=== PATIENT | male | born 1960 | race Caucasian/White ===

== ENCOUNTER 2016-12-12 21:18 | Emergency (ER) | payer OTHER ==
[2016-12-12 21:45] VITALS: BP 175/98; PULSE 85; RESP 16; TEMP 97.9; O2SAT 97
[2016-12-12 22:28] LABS: AUTOMATED NEUTROPHIL # 2.2 TH/MM3 (1.8-7.7); BASOPHIL # 0.1 TH/MM3 (0-0.2); BASOPHIL % 1.3 % (0.0-2.0); EOSINOPHIL # 0.2 TH/MM3 (0-0.4); EOSINOPHIL % 3.3 % (0.0-4.0); HEMATOCRIT 40.5 % (39.0-51.0); HEMO FLAGS DIFF FINAL; LYMPH % 41.3 % (9.0-44.0); LYMPHOCYTE # 2.2 TH/MM3 (1.0-4.8); MEAN CELL VOLUME 83.6 FL (80.0-100.0); MEAN CORPUSCULAR HEMOGLOBIN 27.8 PG (27.0-34.0); MEAN CORPUSCULAR HGB CONC 33.3 % (32.0-36.0); MONO % 12.6 % (0.0-8.0); NEUT % 41.5 % (16.0-70.0); PLATELET COUNT 213 TH/MM3 (150-450); RED BLOOD COUNT 4.84 MIL/MM3 (4.50-5.90); RED CELL DISTRIBUTION WIDTH 20.8 % (11.6-17.2); WHITE BLOOD COUNT 5.4 TH/MM3 (4.0-11.0)
--- NOTE | 2016-12-12 22:37 | PD ---
HPI Chief Complaint: Psychiatric Symptoms Time Seen by Provider: 22:22 Travel History International Travel<30 days: No Contact w/Intl Traveler<30days: No Traveled to known affect area: No History of Present Illness HPI 56-year-old male here under Rojas act condition by [place] police department. According to the paperwork the patient was found intoxicated in the parking lot of a liquor store. He was complaining of suicidal thoughts. On initial examination the patient is highly intoxicated limiting examination. He admits to drinking beer tonight. He does endorse a desire to not want to live anymore. Denies any attempts at harming himself. Denies any illicit drug use. He does not recall any trauma. He has no other complaints at this time. [facility] Past Medical History Autoimmune Disease: No Cancer: No Cardiovascular Problems: Yes Diabetes: No Diminished Hearing: No Gastrointestinal Disorders: No Genitourinary: No Hypertension: Yes Immune Disorder: No Musculoskeletal: No Neurologic: Yes Psychiatric: No Reproductive: No Respiratory: No Immunizations Current: Yes Seizures: Yes Past Surgical History Other Surgery: Yes (HIATAL HERNIA 1978) Social History Alcohol Use: Yes (DAILY) Tobacco Use: Yes Substance Use: No Allergies-Medications (Allergen,Severity, Reaction): Coded Allergies: No Known Allergies (Verified , 12/12/16) Reported Meds & Prescriptions Reported Meds & Active Scripts Active No Active Prescriptions or Reported Medications Review of Systems ROS Limitations: Intoxication Except as stated in HPI: all other systems reviewed are Neg Physical Exam Exam Limitations: Intoxication Narrative GENERAL: Disheveled appearing male in no acute distress. SKIN: Warm and dry. HEAD: Atraumatic. Normocephalic. EYES: Pupils equal and round. No scleral icterus. No injection or drainage. ENT: No nasal bleeding or discharge. Mucous membranes pink and moist. NECK: Trachea midline. No JVD. CARDIOVASCULAR: Regular rate and rhythm. No murmur appreciated. RESPIRATORY: No accessory muscle use. Clear to auscultation. Breath sounds equal bilaterally. GASTROINTESTINAL: Abdomen soft, non-tender, nondistended. Hepatic and splenic margins not palpable. MUSCULOSKELETAL: No obvious deformities. No clubbing. No cyanosis. No edema. NEUROLOGICAL: Awake and alert. No obvious cranial nerve deficits. Motor grossly within normal limits. Slurred speech. Intoxicated. PSYCHIATRIC: Depressed, intoxicated. Insight and judgment are currently limited. Data Data Last Documented VS Vital Signs Date Time Temp Pulse Resp B/P Pulse Ox O2 Delivery O2 Flow Rate FiO2 12/13/16 08:24 81 18 120/77 97 Room Air 12/12/16 21:45 97.9 Orders Complete Blood Count With Diff (12/12/16 21:58) Comprehensive Metabolic Panel (12/12/16 21:58) Psych Screen (12/12/16 21:58) Ct Brain W/O Iv Contrast(Rout) (12/12/16 ) Drug Screen, Random Urine (12/12/16 22:34) Alcohol (Ethanol) (12/12/16 22:34) Labs Laboratory Tests Test 12/12/16 21:35 White Blood Count 5.4 TH/MM3 Red Blood Count 4.84 MIL/MM3 Hemoglobin 13.5 GM/DL Hematocrit 40.5 % Mean Corpuscular Volume 83.6 FL Mean Corpuscular Hemoglobin 27.8 PG Mean Corpuscular Hemoglobin 33.3 % Concent Red Cell Distribution Width 20.8 % Platelet Count 213 TH/MM3 Mean Platelet Volume 7.1 FL Neutrophils (%) (Auto) 41.5 % Lymphocytes (%) (Auto) 41.3 % Monocytes (%) (Auto) 12.6 % Eosinophils (%) (Auto) 3.3 % Basophils (%) (Auto) 1.3 % Neutrophils # (Auto) 2.2 TH/MM3 Lymphocytes # (Auto) 2.2 TH/MM3 Monocytes # (Auto) 0.7 TH/MM3 Eosinophils # (Auto) 0.2 TH/MM3 Basophils # (Auto) 0.1 TH/MM3 CBC Comment DIFF FINAL Differential Comment Sodium Level 143 MEQ/L Potassium Level 4.0 MEQ/L Chloride Level 108 MEQ/L Carbon Dioxide Level 28.2 MEQ/L Anion Gap 7 MEQ/L Blood Urea Nitrogen 10 MG/DL Creatinine 0.89 MG/DL Estimat Glomerular Filtration 89 ML/MIN Rate Random Glucose 97 MG/DL Calcium Level 8.3 MG/DL Total Bilirubin 0.2 MG/DL Aspartate Amino Transf 139 U/L (AST/SGOT) Alanine Aminotransferase 86 U/L (ALT/SGPT) Alkaline Phosphatase 144 U/L Total Protein 8.2 GM/DL Albumin 4.0 GM/DL Ethyl Alcohol Level 489 MG/DL MDM Medical Decision Making Medical Screen Exam Complete: Yes Emergency Medical Condition: Yes Medical Record Reviewed: Yes Interpretation(s) etoh 489 cmp ast 139 alt [address] brain wnl Differential Diagnosis Intoxication, polysubstance abuse, acute psychosis, major depressive disorder, closed head injury Narrative Course 56-year-old male under Rojas act for intoxication and suicidal ideation. Basic lab work, CT of the brain is ordered. Mental health screening discussed with the patient. Psychiatric screen ordered. The patient will be medically cleared for psychiatric disposition once the labs and imaging studies are completed. Diagnosis Primary Impression: Alcohol intoxication Qualified Code: F10.120 - Alcohol intoxication, uncomplicated Scripts No Active Prescriptions or Reported Meds Colby Casey Dec 12, 2016 22:37
[2016-12-12 22:52] LABS: ALKALINE PHOSPHATASE 144 U/L (45-117); TOTAL BILIRUBIN ADULT 0.2 MG/DL (0.2-1.0)
[2016-12-12 23:17] LABS: ALT (GPT) 86 U/L (12-78); ANION GAP 7 MEQ/L (5-15); AST (GOT) 139 U/L (15-37); BICARBONATE 28.2 MEQ/L (21.0-32.0); BLOOD UREA NITROGEN 10 MG/DL (7-18); CHLORIDE 108 MEQ/L (98-107); GLOMERULAR FILTRATION RATE 89 ML/MIN (>89); SODIUM (NA) 143 MEQ/L (136-145)
--- NOTE | 2016-12-13 01:52 | RADRPT ---
EXAM DATE/TIME: 12/13/2016 01:31 [facility] COMPARISON: CT BRAIN W/O CONTRAST, July 28, 2016, 15:56. INDICATIONS : Altered mental status. RADIATION DOSE: 41.62 CTDIvol (mGy) MEDICAL HISTORY : None SURGICAL HISTORY : None. ENCOUNTER: Initial ACUITY: 1 day PAIN SCALE: 2/10 LOCATION: cranial TECHNIQUE: Multiple contiguous axial images were obtained of the head. Using automated exposure control and adj ustment of the mA and/or kV according to patient size, radiation dose was kept as low as reasonably a chievable to obtain optimal diagnostic quality images. FINDINGS: CEREBRUM: The ventricles are normal for age. No evidence of midline shift, mass lesion, hemorrhage or acute in farction. No extra-axial fluid collections are seen. POSTERIOR FOSSA: The cerebellum and brainstem are intact. The 4th ventricle is midline. The cerebellopontine angle i s unremarkable. EXTRACRANIAL: The visualized portion of the orbits is intact. SKULL: The calvaria is intact. No evidence of skull fracture. CONCLUSION: 1. No evidence of acute intracranial pathology. No masses are identified. Mitchel Haji MD on December 13, 2016 at 1:50 Board Certified Radiologist. This report was verified electronically.
[2016-12-13 03:00] VITALS: BP 144/72; PULSE 82; RESP 18; O2SAT 95
[2016-12-13 08:24] VITALS: BP 120/77; PULSE 81; RESP 18; O2SAT 97
== END 2016-12-13 09:34 | disposition home or self-care (01) ==
LOC: NEPA 21:18
DX: F10.120 Alcohol abuse with intoxication, uncomplicated (principal); I10 Essential (primary) hypertension; Z72.0 Tobacco use
CPT/HCPCS: 70450; 80053; 80320; 85025

== ENCOUNTER 2016-12-13 16:51 | Emergency (ER) | payer OTHER ==
[~2016-12-13] VITALS: Ht 172.7 cm; Wt 70.0 kg
[2016-12-13] MEDS ORDERED: THIAMINE INJ 100 MG in SODIUM CHLORIDE 0.9% INJ 100 ML IV ONE (17:45)
[2016-12-13] MEDS ORDERED: SODIUM CHLOR 0.9% 1000 ML INJ 1,000 ML IV ONE (17:45)
[2016-12-13] MEDS ORDERED: chlordiazePOXIDE 25 MG CAP PO ONE (17:45)
--- NOTE | 2016-12-13 17:47 | PD ---
HPI Chief Complaint: Alcohol/Drug Intoxication Time Seen by Provider: 17:47 Travel History International Travel<30 days: No Contact w/Intl Traveler<30days: No Traveled to known affect area: No History of Present Illness HPI 56-year-old male brought in under the Joshi's act for EtOH intoxication. Patient was found outside a local restaurant with decreased level of consciousness. Patient is currently arousable, and complaining of no pain. He states he drank a 24 pack today. EMS reports that he was found with a vodka bottle near him at their response. Patient does state that he has had seizures with EtOH withdrawal in the past. Patient has no known drug allergies. PFSH Past Medical History Autoimmune Disease: No Cancer: No Cardiovascular Problems: Yes Diabetes: No Diminished Hearing: No Gastrointestinal Disorders: No Genitourinary: No Hypertension: Yes Immune Disorder: No Musculoskeletal: No Neurologic: Yes Psychiatric: No Reproductive: No Respiratory: No Immunizations Current: Yes Seizures: Yes Past Surgical History Other Surgery: Yes (HIATAL HERNIA 1978) Social History Alcohol Use: Yes (DAILY) Tobacco Use: Yes Substance Use: No Allergies-Medications (Allergen,Severity, Reaction): Coded Allergies: No Known Allergies (Verified , 12/12/16) Reported Meds & Prescriptions Reported Meds & Active Scripts Active No Active Prescriptions or Reported Medications Review of Systems ROS Limitations: Intoxication Except as stated in HPI: all other systems reviewed are Neg General / Constitutional: No: Fever Eyes: No: Visual changes HENT: No: Headaches Cardiovascular: No: Chest Pain or Discomfort Respiratory: No: Shortness of Breath Gastrointestinal: No: Abdominal Pain Genitourinary: No: Dysuria Musculoskeletal: No: Pain Skin: No Rash Neurologic: No: Weakness Psychiatric: No: Depression Endocrine: No: Polydipsia Hematologic/Lymphatic: No: Easy Bruising Physical Exam Exam Limitations: Intoxication Narrative GENERAL: Patient is arousable and appropriate when asked questions. SKIN: Warm and dry. Normal color. Normal turgor. No sign of trauma. HEAD: Atraumatic. Normocephalic. EYES: Pupils equal and round. No scleral icterus. No injection or drainage. ENT: No nasal bleeding or discharge. Mucous membranes pink and moist. Pharynx is clear. NECK: Trachea midline. Supple and nontender. CARDIOVASCULAR: Regular rate and rhythm. RESPIRATORY: No accessory muscle use. Clear to auscultation. Breath sounds equal bilaterally. MUSCULOSKELETAL: Extremities without clubbing, cyanosis, or edema. No obvious deformities. NEUROLOGICAL: Awake and alert. No obvious cranial nerve deficits. Motor grossly within normal limits. Five out of 5 muscle strength in the arms and legs. Mildly slurred speech. PSYCHIATRIC: Appropriate mood and affect; insight and judgment normal. Data Data Orders Complete Blood Count With Diff (12/13/16 17:45) Comprehensive Metabolic Panel (12/13/16 17:45) Iv Access Insert/Monitor (12/13/16 17:45) Drug Screen, Random Urine (12/13/16 17:45) Alcohol (Ethanol) (12/13/16 17:45) Sodium Chlor 0.9% 1000 Ml Inj (Ns 1000 M (12/13/16 17:45) Thiamine Inj (Thiamine Inj) (12/13/16 17:45) Chlordiazepoxide (Librium) (12/13/16 17:45) MDM Medical Decision Making Medical Screen Exam Complete: Yes Emergency Medical Condition: Yes Differential Diagnosis Tatum's act. EtOH intoxication. Mood disorder. Narrative Course Patient is medically stable at time of exam. Labs ordered including CBC, CMP, and EtOH level. Urine drug screen is ordered as well. IV normal saline boluses ordered of 1000 and rales. Patient is given 100 mg thiamine IV as well as 25 mg Librium by mouth. Patient is awaiting med bed placement. Scripts No Active Prescriptions or Reported Meds Padilla Castellanos Dec 13, 2016 17:47
[2016-12-13 18:28] LABS: AUTOMATED NEUTROPHIL # 3.1 TH/MM3 (1.8-7.7); BASOPHIL # 0.1 TH/MM3 (0-0.2); BASOPHIL % 1.1 % (0.0-2.0); EOSINOPHIL # 0.1 TH/MM3 (0-0.4); EOSINOPHIL % 2.4 % (0.0-4.0); HEMATOCRIT 34.6 % (39.0-51.0); HEMO FLAGS DIFF FINAL; LYMPH % 28.1 % (9.0-44.0); LYMPHOCYTE # 1.5 TH/MM3 (1.0-4.8); MEAN CELL VOLUME 83.5 FL (80.0-100.0); MEAN CORPUSCULAR HEMOGLOBIN 27.8 PG (27.0-34.0); MEAN CORPUSCULAR HGB CONC 33.3 % (32.0-36.0); NEUT % 58.4 % (16.0-70.0); PLATELET COUNT 192 TH/MM3 (150-450); RED BLOOD COUNT 4.14 MIL/MM3 (4.50-5.90); RED CELL DISTRIBUTION WIDTH 21.4 % (11.6-17.2); WHITE BLOOD COUNT 5.3 TH/MM3 (4.0-11.0)
[2016-12-13 18:36] LABS: AMPHETAMINE, URINE NEG (NEG); BARBITURATES, URINE NEG (NEG); COCAINE, URINE NEG (NEG)
[2016-12-13 18:44] LABS: ANION GAP 11 MEQ/L (5-15)
[2016-12-13 18:49] LABS: ALKALINE PHOSPHATASE 118 U/L (45-117); ALT (GPT) 77 U/L (12-78); AST (GOT) 122 U/L (15-37); BICARBONATE 26.2 MEQ/L (21.0-32.0); BLOOD UREA NITROGEN 11 MG/DL (7-18); CHLORIDE 105 MEQ/L (98-107); GLOMERULAR FILTRATION RATE 91 ML/MIN (>89); POTASSIUM 3.7 MEQ/L (3.5-5.1); SODIUM (NA) 142 MEQ/L (136-145); TOTAL BILIRUBIN ADULT 0.2 MG/DL (0.2-1.0)
--- NOTE | 2016-12-13 21:17 | PD ---
Physical Exam Date Seen by Provider: Dec 13, 2016 Time Seen by Provider: 19:55 Narrative Patient is here with acute alcohol intoxication. Data Data Orders Complete Blood Count With Diff (12/13/16 17:45) Comprehensive Metabolic Panel (12/13/16 17:45) Iv Access Insert/Monitor (12/13/16 17:45) Drug Screen, Random Urine (12/13/16 17:45) Alcohol (Ethanol) (12/13/16 17:45) Sodium Chlor 0.9% 1000 Ml Inj (Ns 1000 M (12/13/16 17:45) Thiamine Inj (Thiamine Inj) (12/13/16 17:45) Chlordiazepoxide (Librium) (12/13/16 17:45) Labs Laboratory Tests Test 12/13/16 12/13/16 17:52 17:57 Urine Opiates Screen NEG Urine Barbiturates Screen NEG Urine Amphetamines Screen NEG Urine Benzodiazepines Screen NEG Urine Cocaine Screen NEG Urine Cannabinoids Screen NEG White Blood Count 5.3 TH/MM3 Red Blood Count 4.14 MIL/MM3 Hemoglobin 11.5 GM/DL Hematocrit 34.6 % Mean Corpuscular Volume 83.5 FL Mean Corpuscular Hemoglobin 27.8 PG Mean Corpuscular Hemoglobin 33.3 % Concent Red Cell Distribution Width 21.4 % Platelet Count 192 TH/MM3 Mean Platelet Volume 7.0 FL Neutrophils (%) (Auto) 58.4 % Lymphocytes (%) (Auto) 28.1 % Monocytes (%) (Auto) 10.0 % Eosinophils (%) (Auto) 2.4 % Basophils (%) (Auto) 1.1 % Neutrophils # (Auto) 3.1 TH/MM3 Lymphocytes # (Auto) 1.5 TH/MM3 Monocytes # (Auto) 0.5 TH/MM3 Eosinophils # (Auto) 0.1 TH/MM3 Basophils # (Auto) 0.1 TH/MM3 CBC Comment DIFF FINAL Differential Comment Sodium Level 142 MEQ/L Potassium Level 3.7 MEQ/L Chloride Level 105 MEQ/L Carbon Dioxide Level 26.2 MEQ/L Anion Gap 11 MEQ/L Blood Urea Nitrogen 11 MG/DL Creatinine 0.87 MG/DL Estimat Glomerular Filtration 91 ML/MIN Rate Random Glucose 88 MG/DL Calcium Level 7.8 MG/DL Total Bilirubin 0.2 MG/DL Aspartate Amino Transf 122 U/L (AST/SGOT) Alanine Aminotransferase 77 U/L (ALT/SGPT) Alkaline Phosphatase 118 U/L Total Protein 7.3 GM/DL Albumin 3.4 GM/DL Ethyl Alcohol Level 407 MG/DL MDM Supervised Visit with TREVON: Yes Narrative Course I, Dr. Carnes, have reviewed the advance practice practitioner's documentation and am in agreement, met with the patient face to face, made the diagnosis, and the medical decision making was done by me. *My assessment and Findings: The patient is intoxicated. Scripts No Active Prescriptions or Reported Meds Valorie Carnes MD Dec 13, 2016 21:17
[2016-12-13 22:40] VITALS: BP 107/60; PULSE 76; RESP 18; TEMP 98.4; O2SAT 96
--- NOTE | 2016-12-14 06:59 | RADRPT ---
EXAM DATE/TIME: 12/14/2016 06:59 [facility] COMPARISON: No previous studies available for comparison. INDICATIONS : Right foot pain and swelling, no injury. MEDICAL HISTORY : None. SURGICAL HISTORY : None. ENCOUNTER: Initial ACUITY: 1 month PAIN SCORE: 10/10 LOCATION: Right entire foot FINDINGS: Three view examination of the right foot demonstrates no soft tissue swelling, dislocation, or fractu re. The tarsal bones appear intact. The interphalangeal and metatarsophalangeal joints are intact. The calcaneus is intact. Bony mineralization is normal. CONCLUSION: 1. Negative examination of the foot. Mitchel Haji MD on December 14, 2016 at 6:57 Board Certified Radiologist. This report was verified electronically.
== END 2016-12-14 08:22 | disposition home or self-care (01) ==
LOC: NEPA 16:51
DX: F10.129 Alcohol abuse with intoxication, unspecified (principal); I10 Essential (primary) hypertension; M79.671 Pain in right foot; Y90.8 Blood alcohol level of 240 mg/100 ml or more; Z72.0 Tobacco use
CPT/HCPCS: 73630; 80053; 80307; 80320; 85025; 96374; 99284; J3411; J7030

== ENCOUNTER 2016-12-17 19:05 | Emergency (ER) | payer OTHER ==
[2016-12-17 19:16] VITALS: BP 122/95; PULSE 94; RESP 18; TEMP 98.2; O2SAT 97
[2016-12-17 20:32] LABS: BASOPHIL # 0.1 TH/MM3 (0-0.2); EOSINOPHIL # 0.1 TH/MM3 (0-0.4); EOSINOPHIL % 1.9 % (0.0-4.0); HEMATOCRIT 35.7 % (39.0-51.0); HEMO FLAGS DIFF FINAL; LYMPH % 31.7 % (9.0-44.0); LYMPHOCYTE # 1.8 TH/MM3 (1.0-4.8); MEAN CELL VOLUME 83.2 FL (80.0-100.0); MEAN CORPUSCULAR HEMOGLOBIN 28.3 PG (27.0-34.0); MONO % 12.2 % (0.0-8.0); NEUT % 52.2 % (16.0-70.0); PLATELET COUNT 271 TH/MM3 (150-450); RED BLOOD COUNT 4.29 MIL/MM3 (4.50-5.90); WHITE BLOOD COUNT 5.8 TH/MM3 (4.0-11.0)
[2016-12-17 20:49] LABS: ANION GAP 8 MEQ/L (5-15); AST (GOT) 100 U/L (15-37); BICARBONATE 28.6 MEQ/L (21.0-32.0); BLOOD UREA NITROGEN 11 MG/DL (7-18); CHLORIDE 103 MEQ/L (98-107); GLOMERULAR FILTRATION RATE 78 ML/MIN (>89); POTASSIUM 3.6 MEQ/L (3.5-5.1); SODIUM (NA) 140 MEQ/L (136-145)
[2016-12-17 20:53] LABS: ALKALINE PHOSPHATASE 119 U/L (45-117); ALT (GPT) 75 U/L (12-78); TOTAL BILIRUBIN ADULT 0.4 MG/DL (0.2-1.0)
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
[2016-12-17] MEDS ORDERED: BACT800T5 PO (23:43)
[2016-12-17] MEDS ORDERED: CEPH-460 PO (23:43)
[2016-12-17] MEDS ORDERED: SULFAMETHOXAZOLE-TRIMETHOPRIM DS 800-160 MG TAB PO ONE (23:45)
[2016-12-17] MEDS ORDERED: CEPHALEXIN MONOHYDRATE 500 MG CAP PO ONE (23:45)
[2016-12-18] VITALS: BP 101/66; PULSE 80; RESP 16; O2SAT 95
[2016-12-18] MEDS ORDERED: FLUMAZENIL 0.5 MG/5 ML VIAL IV PUSH PRN (00:45)
[2016-12-18] MEDS ORDERED: LORazepam 2 MG TAB PO PRN (00:45)
[2016-12-18] MEDS ORDERED: LORazepam 2 MG/ML VIAL IV PUSH PRN ×4 (00:45)
[2016-12-18 01:12] LABS: AMPHETAMINE, URINE NEG (NEG); BARBITURATES, URINE NEG (NEG); COCAINE, URINE NEG (NEG)
[2016-12-18 07:10] VITALS: BP 145/76; PULSE 89; RESP 18; TEMP 99.3; O2SAT 99
[2016-12-18] MEDS: LORazepam 1 MG TAB PO PRN ×2 (07:16→12:28)
[2016-12-18] MEDS ORDERED: IBUPROFEN 800 MG TAB PO ONE (08:15)
[2016-12-18 10:44] VITALS: BP 124/82; PULSE 89; RESP 18; TEMP 98.2; O2SAT 97
[2016-12-18 13:01] VITALS: RESP 18
--- NOTE | 2016-12-18 13:03 | PD ---
History of Present Illness Chief Complaint: Psychiatric Symptoms Time Seen by Provider: 12:45 Travel History International Travel<30 Days: No Contact w/Intl Traveler<30days: No Known affected area: No Legal Status Legal Status: Rojas Act Rojas Act Signed By: Ray Townsend History of Present Illness: 56-year-old male with a long history of alcoholism. Patient is pleasant and cooperative at this time and states he made suicidal comments to police because he was intoxicated. He is no longer suicidal, homicidal, psychotic, or cognitively impaired. He is no longer intoxicated. He would like to go home. He apparently lives in a home with a reverse mortgage to keep his mother in a alf. He works occasionally and likes to continue to drink alcohol. PFSH Past Medical History Medical History: Denies Significant Hx Autoimmune Disease: No Cancer: No Cardiovascular Problems: Yes Diabetes: No Diminished Hearing: No Gastrointestinal Disorders: No Genitourinary: No Hypertension: Yes Immune Disorder: No Implanted Vascular Access Dvce: No Musculoskeletal: No Neurologic: Yes Psychiatric: No Reproductive: No Respiratory: No Immunizations Current: Yes Seizures: Yes Tetanus Vaccination: < 5 Years Past Surgical History Other Surgery: Yes (HIATAL HERNIA 1978) Psychiatric History Psychiatric History Hx Psychiatric Treatment: PT DENIES History of Inpatient Treatment: No Guns or firearms in home: No Social History Hx Alcohol Use: Yes (DAILY) Hx Tobacco Use: Yes Hx Substance Use: No Substance Use Type: Alcohol Other Substances Used: Pt says, "I did some cocaine and some benzos over this incident. Hx of Substance Use Treatment: Yes Family Psychiatric History States alcoholism runs in his family. Allergies-Medications (Allergen,Severity, Reaction): Coded Allergies: No Known Allergies (Verified , 12/17/16) Reported Meds & Prescriptions Reported Meds & Active Scripts Active Bactrim DS (Sulfamethoxazole-Trimethoprim) 800-160 Mg Tab 1 Tab PO BID Keflex (Cephalexin) 500 Mg Cap 500 Mg PO Q6H Review of Systems Except as stated in HPI: all other systems reviewed are Neg Exam Alert: Yes [place]: Person, Place, Date, Situation Mood: Calm Affect: Euthymic Speech: Clear, Logical Eye Contact: Normal Memory Intact: Immediate, Recent, Remote Hallucinations: Other Delusions: No Delusion Type: Other Insight/Judgement Fair Remarks No longer p suicidal and wants to leave. MDM Medical Decision Making Medical Record Reviewed: Yes Assessment/Plan Discharge to home. Orders Complete Blood Count With Diff (12/17/16 19:42) Comprehensive Metabolic Panel (12/17/16 19:42) Psych Screen (12/17/16 19:42) Drug Screen, Random Urine (12/17/16 22:35) Alcohol (Ethanol) (12/17/16 22:37) Cephalexin (Keflex) (12/17/16 23:45) Sulfamet-Trimeth Ds 800-160 Mg (Bactrim (12/17/16 23:45) Alcohol Withdrawal Asmt-Ciwa ONCE (12/18/16 00:40) Flumazenil Inj (Romazicon Inj) (12/18/16 00:45) Lorazepam (Ativan) (12/18/16 00:45) Lorazepam Inj (Ativan Inj) (12/18/16 00:45) Lorazepam (Ativan) (12/18/16 00:45) Lorazepam Inj (Ativan Inj) (12/18/16 00:45) Lorazepam Inj (Ativan Inj) (12/18/16 00:45) Lorazepam Inj (Ativan Inj) (12/18/16 00:45) Diet Regular Basic (12/18/16 Breakfast) Ibuprofen (Motrin) (12/18/16 08:15) Results Vital Signs Date Time Temp Pulse Resp B/P Pulse Ox O2 Delivery O2 Flow Rate FiO2 12/18/16 10:44 98.2 89 18 124/82 97 Room Air 12/18/16 07:10 99.3 89 18 145/76 99 Room Air 12/18/16 07:03 89 18 12/18/16 00:00 80 16 101/66 95 12/17/16 19:16 98.2 94 18 122/95 97 Laboratory Tests Test 12/17/16 12/18/16 19:40 00:45 White Blood Count 5.8 Red Blood Count 4.29 Hemoglobin 12.1 Hematocrit 35.7 Mean Corpuscular Volume 83.2 Mean Corpuscular Hemoglobin 28.3 Mean Corpuscular Hemoglobin 34.0 Concent Red Cell Distribution Width 21.0 Platelet Count 271 Mean Platelet Volume 7.2 Neutrophils (%) (Auto) 52.2 Lymphocytes (%) (Auto) 31.7 Monocytes (%) (Auto) 12.2 Eosinophils (%) (Auto) 1.9 Basophils (%) (Auto) 2.0 Neutrophils # (Auto) 3.0 Lymphocytes # (Auto) 1.8 Monocytes # (Auto) 0.7 Eosinophils # (Auto) 0.1 Basophils # (Auto) 0.1 CBC Comment DIFF FINAL Differential Comment Sodium Level 140 Potassium Level 3.6 Chloride Level 103 Carbon Dioxide Level 28.6 Anion Gap 8 Blood Urea Nitrogen 11 Creatinine 1.00 Estimat Glomerular Filtration 78 Rate Random Glucose 96 Calcium Level 8.4 Total Bilirubin 0.4 Aspartate Amino Transf 100 (AST/SGOT) Alanine Aminotransferase 75 (ALT/SGPT) Alkaline Phosphatase 119 Total Protein 8.2 Albumin 3.8 Ethyl Alcohol Level 379 Urine Opiates Screen NEG Urine Barbiturates Screen NEG Urine Amphetamines Screen NEG Urine Benzodiazepines Screen POS Urine Cocaine Screen NEG Urine Cannabinoids Screen NEG Diagnosis Primary Impression: Alcohol abuse Additional Impression: Cellulitis of fourth toe, right Psychiatrically Cleared: Yes Departure Forms: Tests/Procedures Patient Instructions: General Instructions, Alcohol Use Disorder (ED) Prescriptions Sulfamethoxazole-Trimethoprim (Bactrim DS)800-160 Mg Tab1 Tab PO BID #20 TAB Prov:Kevin Quintero MD 12/17/16 Cephalexin (Keflex)500 Mg [id number] Mg PO Q6H #40 CAP Prov:Kevin Quintero MD 12/17/16 Disposition: 01 DISCHARGE HOME Condition: Stable Problem Qualifiers Kendall Ahn MD Dec 18, 2016 13:03
== END 2016-12-18 13:03 | disposition home or self-care (01) ==
LOC: NEPB 19:05 → NEPA 12-18 13:03
DX: F10.94 Alcohol use, unspecified with alcohol-induced mood disorder (principal); L03.031 Cellulitis of right toe; F10.10 Alcohol abuse, uncomplicated; I10 Essential (primary) hypertension; Z72.0 Tobacco use; Z86.79 Personal history of other diseases of the circulatory system; Z86.69 Personal history of other diseases of the nervous system and sense organs
CPT/HCPCS: 80053; 80307; 80320; 85025; 99285

== ENCOUNTER 2017-01-03 18:14 | Emergency (ER) | payer SELFPAY ==
[~2017-01-03] VITALS: Ht 182.9 cm; Wt 72.7 kg
[~2017-01-03 18:14] MED LIST: BACT800T5 PO; CEPH-460 PO
[2017-01-03 19:16] VITALS: BP 108/65; PULSE 99; RESP 16; TEMP 98.4; O2SAT 96
--- NOTE | 2017-01-03 19:30 | PD ---
HPI Chief Complaint: Psychiatric Symptoms Time Seen by Provider: 19:27 Travel History International Travel<30 days: No Contact w/Intl Traveler<30days: No Traveled to known affect area: No History of Present Illness HPI 56-year-old male brought in under the Rojas act, for thoughts of suicidal ideation. Patient stated to EMS that he wanted to blow his brains out. Patient is upset about something about his daughter. Patient is intoxicated. Patient has no complaints of medical issues currently. He has no known drug allergies. PFSH Past Medical History Autoimmune Disease: No Cancer: No Cardiovascular Problems: Yes Diabetes: No Diminished Hearing: No Gastrointestinal Disorders: No Genitourinary: No Hypertension: Yes Immune Disorder: No Implanted Vascular Access Dvce: No Musculoskeletal: No Neurologic: Yes Psychiatric: No Reproductive: No Respiratory: No Immunizations Current: Yes Seizures: Yes Past Surgical History Other Surgery: Yes (HIATAL HERNIA 1978) Social History Alcohol Use: Yes (DAILY) Tobacco Use: Yes Substance Use: No Allergies-Medications (Allergen,Severity, Reaction): Coded Allergies: No Known Allergies (Verified , 12/17/16) Reported Meds & Prescriptions Reported Meds & Active Scripts Active No Active Prescriptions or Reported Medications Review of Systems ROS Limitations: Intoxication Except as stated in HPI: all other systems reviewed are Neg General / Constitutional: No: Fever Eyes: No: Visual changes HENT: No: Headaches Cardiovascular: No: Chest Pain or Discomfort Respiratory: No: Shortness of Breath Gastrointestinal: No: Abdominal Pain Genitourinary: No: Dysuria Musculoskeletal: No: Pain Skin: No Rash Neurologic: No: Weakness Psychiatric: No: Depression Endocrine: No: Polydipsia Hematologic/Lymphatic: No: Easy Bruising Physical Exam Exam Limitations: Intoxication Narrative GENERAL: Patient appears intoxicated but in no acute distress. He does answers questions and is cooperative at the time of exam. SKIN: Warm and dry. Normal color. Normal turgor. No signs of trauma. HEAD: Atraumatic. Normocephalic. EYES: Pupils equal and round. No scleral icterus. No injection or drainage. ENT: No nasal bleeding or discharge. Mucous membranes pink and moist. Pharynx is clear. NECK: Trachea midline. Supple. CARDIOVASCULAR: Regular rate and rhythm. No murmurs gallops or rubs. RESPIRATORY: No accessory muscle use. Clear to auscultation. Breath sounds equal bilaterally. MUSCULOSKELETAL: Extremities without clubbing, cyanosis, or edema. No obvious deformities. Patient has swelling with a scab over the right distal fourth toe with localized swelling and erythema. Signs of lymphangitis into the foot. No obvious signs of abscess. Patient states this area has been bothering him for over a month. NEUROLOGICAL: Awake and alert. No obvious cranial nerve deficits. Motor grossly within normal limits. Five out of 5 muscle strength in the arms and legs. Normal speech. PSYCHIATRIC: Patient is suicidal. He is intoxicated. Data Data Last Documented VS Vital Signs Date Time Temp Pulse Resp B/P Pulse Ox O2 Delivery O2 Flow Rate FiO2 01/04/17 06:39 97.4 84 18 119/67 98 Room Air Orders Complete Blood Count With Diff (01/03/17 19:10) Comprehensive Metabolic Panel (01/03/17 19:10) Psych Screen (01/03/17 19:10) Drug Screen, Random Urine (01/03/17 19:10) Alcohol (Ethanol) (01/03/17 19:10) Lorazepam Inj (Ativan Inj) (01/03/17 20:45) Ibuprofen (Motrin) (01/04/17 03:15) Diet Regular Basic (01/04/17 Breakfast) Sulfamet-Trimeth Ds 800-160 Mg (Bactrim (01/04/17 10:00) Cephalexin (Keflex) (01/04/17 10:00) Toe (Min 2vws) (01/04/17 10:01) Diet Regular Basic (01/04/17 Lunch) Alcohol Withdrawal Asmt-Ciwa Q4HX18 (01/04/17 11:43) Flumazenil Inj (Romazicon Inj) (01/04/17 11:45) Lorazepam (Ativan) (01/04/17 11:45) Lorazepam Inj (Ativan Inj) (01/04/17 11:45) Lorazepam (Ativan) (01/04/17 11:45) Lorazepam Inj (Ativan Inj) (01/04/17 11:45) Lorazepam Inj (Ativan Inj) (01/04/17 11:45) Lorazepam Inj (Ativan Inj) (01/04/17 11:45) Labs Laboratory Tests Test 01/03/17 19:34 White Blood Count 4.5 TH/MM3 Red Blood Count 3.90 MIL/MM3 Hemoglobin 11.5 GM/DL Hematocrit 34.1 % Mean Corpuscular Volume 87.3 FL Mean Corpuscular Hemoglobin 29.4 PG Mean Corpuscular Hemoglobin 33.6 % Concent Red Cell Distribution Width 22.2 % Platelet Count 263 TH/MM3 Mean Platelet Volume 6.7 FL Neutrophils (%) (Auto) 47.5 % Lymphocytes (%) (Auto) 33.9 % Monocytes (%) (Auto) 11.4 % Eosinophils (%) (Auto) 4.4 % Basophils (%) (Auto) 2.8 % Neutrophils # (Auto) 2.1 TH/MM3 Lymphocytes # (Auto) 1.5 TH/MM3 Monocytes # (Auto) 0.5 TH/MM3 Eosinophils # (Auto) 0.2 TH/MM3 Basophils # (Auto) 0.1 TH/MM3 CBC Comment DIFF FINAL Differential Comment Sodium Level 144 MEQ/L Potassium Level 3.8 MEQ/L Chloride Level 109 MEQ/L Carbon Dioxide Level 25.4 MEQ/L Anion Gap 10 MEQ/L Blood Urea Nitrogen 10 MG/DL Creatinine 0.91 MG/DL Estimat Glomerular Filtration 87 ML/MIN Rate Random Glucose 95 MG/DL Calcium Level 7.8 MG/DL Total Bilirubin 0.2 MG/DL Aspartate Amino Transf 77 U/L (AST/SGOT) Alanine Aminotransferase 60 U/L (ALT/SGPT) Alkaline Phosphatase 112 U/L Total Protein 7.2 GM/DL Albumin 3.4 GM/DL Urine Opiates Screen NEG Urine Barbiturates Screen NEG Urine Amphetamines Screen NEG Urine Benzodiazepines Screen NEG Urine Cocaine Screen NEG Urine Cannabinoids Screen NEG Ethyl Alcohol Level 423 MG/DL [facility] Medical Decision Making Medical Screen Exam Complete: Yes Emergency Medical Condition: Yes Differential Diagnosis Rojas act. EtOH intoxication. Psychotic symptoms. Suicidal ideation. Narrative Course Patient is seen in the ambulance [place] and medically stable at that time. Patient is noted be talking to himself with apparent signs of psychosis Labs ordered including CBC, CMP, urinalysis, urine drug screen, and serum alcohol level. 2 mg lorazepam IV as well as ordered. X-ray of the right fourth toe was ordered. X-ray shows no sign of osteo myelitis. Per radiologist. Patient is started on Bactrim DS twice a day 10 days. Patient started on Keflex 500 mg 3 times a day for 10 days. Psychiatric evaluation is ordered. Scripts No Active Prescriptions or Reported Meds Condition: Padilla Tineo Jan 03, 2017 19:30
[2017-01-03 20:03] LABS: AUTOMATED NEUTROPHIL # 2.1 TH/MM3 (1.8-7.7); BASOPHIL # 0.1 TH/MM3 (0-0.2); BASOPHIL % 2.8 % (0.0-2.0); EOSINOPHIL # 0.2 TH/MM3 (0-0.4); EOSINOPHIL % 4.4 % (0.0-4.0); HEMATOCRIT 34.1 % (39.0-51.0); HEMO FLAGS DIFF FINAL; LYMPH % 33.9 % (9.0-44.0); LYMPHOCYTE # 1.5 TH/MM3 (1.0-4.8); MEAN CELL VOLUME 87.3 FL (80.0-100.0); MEAN CORPUSCULAR HEMOGLOBIN 29.4 PG (27.0-34.0); MEAN CORPUSCULAR HGB CONC 33.6 % (32.0-36.0); MONO % 11.4 % (0.0-8.0); NEUT % 47.5 % (16.0-70.0); PLATELET COUNT 263 TH/MM3 (150-450); RED CELL DISTRIBUTION WIDTH 22.2 % (11.6-17.2); WHITE BLOOD COUNT 4.5 TH/MM3 (4.0-11.0)
[2017-01-03 20:14] LABS: AMPHETAMINE, URINE NEG (NEG); BARBITURATES, URINE NEG (NEG); COCAINE, URINE NEG (NEG)
[2017-01-03 20:38] LABS: ANION GAP 10 MEQ/L (5-15)
[2017-01-03 20:43] LABS: ALKALINE PHOSPHATASE 112 U/L (45-117); ALT (GPT) 60 U/L (12-78); AST (GOT) 77 U/L (15-37); BICARBONATE 25.4 MEQ/L (21.0-32.0); BLOOD UREA NITROGEN 10 MG/DL (7-18); CHLORIDE 109 MEQ/L (98-107); GLOMERULAR FILTRATION RATE 87 ML/MIN (>89); POTASSIUM 3.8 MEQ/L (3.5-5.1); SODIUM (NA) 144 MEQ/L (136-145); TOTAL BILIRUBIN ADULT 0.2 MG/DL (0.2-1.0)
[2017-01-03] MEDS ORDERED: LORazepam 2 MG/ML VIAL IV PUSH ONE (20:45)
[2017-01-04 01:17] VITALS: BP 100/66; PULSE 79; RESP 16; O2SAT 94
[2017-01-04] MEDS ORDERED: IBUPROFEN 600 MG TAB PO ONE (03:15)
[2017-01-04 06:39] VITALS: BP 119/67; PULSE 84; RESP 18; TEMP 97.4; O2SAT 98
[2017-01-04] MEDS ORDERED: SULFAMETHOXAZOLE-TRIMETHOPRIM DS 800-160 MG TAB PO SCH (10:00)
[2017-01-04] MEDS ORDERED: CEPHALEXIN MONOHYDRATE 500 MG CAP PO SCH (10:00)
--- NOTE | 2017-01-04 11:31 | RADRPT ---
EXAM DATE/TIME: 01/04/2017 11:07 [place] COMPARISON: No previous studies available for comparison. INDICATIONS : Inflammation, redness. MEDICAL HISTORY : Hypertension. Seizures SURGICAL HISTORY : None. ENCOUNTER: Initial ACUITY: 3 weeks PAIN SCORE: 10/10 LOCATION: Right Foot, 4th Digit. FINDINGS: Bones are osteopenic. I don't see a fracture, subluxation or cortical destruction. There is soft tiss ue swelling of the fourth toe. No radiopaque foreign body seen. Moderate degenerative changes are seen of the sesamoids. The tibial sesamoid is bipartite. There is a type I accessory navicular. CONCLUSION: 1. Nonspecific soft tissue swelling of the fourth toe. No acute bone destruction demonstrated. 2. Generalized osteopenia. Nader Lawson MD on January 04, 2017 at 11:28 Board Certified Radiologist. This report was verified electronically.
[2017-01-04 11:45] VITALS: BP 110/58; PULSE 84
[2017-01-04] MEDS ORDERED: LORazepam 2 MG TAB PO PRN (11:45)
[2017-01-04] MEDS ORDERED: FLUMAZENIL 0.5 MG/5 ML VIAL IV PUSH PRN (11:45)
[2017-01-04] MEDS ORDERED: LORazepam 1 MG TAB PO PRN (11:45)
[2017-01-04] MEDS ORDERED: LORazepam 2 MG/ML VIAL IV PUSH PRN ×4 (11:45)
[2017-01-04] MEDS ORDERED: BACT800T5 PO (12:57)
[2017-01-04] MEDS ORDERED: CEPH-460 PO (12:57)
--- NOTE | 2017-01-04 12:59 | PD ---
History of Present Illness Chief Complaint: Psychiatric Symptoms Time Seen by Provider: 12:30 Travel History International Travel<30 Days: No Contact w/Intl Traveler<30days: No Known affected area: No Legal Status Legal Status: Rojas Act Rojas Act Signed By: Chuck Townsend History of Present Illness: This is a 56-year-old male with a long history of alcohol abuse. Apparently he had an alcohol level of greater than 400 last night. According to the Rojas act , he was threatening suicide. Today, the patient has no recollection of making suicidal threats but does admit to saying things that are "inappropriate" when he is intoxicated. At this time he vehemently denies any intention to harm himself or anyone else. He is calm and pleasant and cooperative. He would like to return home. He verbally contracts for safety. He does admit to drinking excessive amounts of alcohol that he has no intention of stopping. He denies symptoms of major depression. His cognition is intact and he shows no evidence of psychotic thinking. PFSH Past Medical History Autoimmune Disease: No Cancer: No Cardiovascular Problems: Yes Diabetes: No Diminished Hearing: No Gastrointestinal Disorders: No Genitourinary: No Hypertension: Yes Immune Disorder: No Implanted Vascular Access Dvce: No Musculoskeletal: No Neurologic: Yes Psychiatric: No Reproductive: No Respiratory: No Immunizations Current: Yes Seizures: Yes Past Surgical History Other Surgery: Yes (HIATAL HERNIA 1978) Psychiatric History Psychiatric History Hx Psychiatric Treatment: PT DENIES History of Inpatient Treatment: No Social History Hx Alcohol Use: Yes (DAILY) Hx Tobacco Use: Yes (2 ppd) Hx Substance Use: Yes (CHRONIC ALCOHOL ABUSE) Substance Use Type: Alcohol Other Substances Used: Pt says, "I did some cocaine and some benzos over this incident. Hx of Substance Use Treatment: Yes Allergies-Medications (Allergen,Severity, Reaction): Coded Allergies: No Known Allergies (Verified , 12/17/16) Reported Meds & Prescriptions Reported Meds & Active Scripts Active No Active Prescriptions or Reported Medications Review of Systems ROS Limitations: Clinical Condition Except as stated in HPI: all other systems reviewed are Neg Exam Alert: Yes [place]: Person, Place, Date, Situation Mood: Calm Affect: Euthymic Speech: Clear, Logical Eye Contact: Normal Memory Intact: Immediate, Recent, Remote, Comment Delusions: No Insight/Judgement Impaired because of his alcohol abuse but otherwise felt to be baseline and adequate. MDM Medical Decision Making Medical Record Reviewed: Yes Assessment/Plan Patient's Rojas act was lifted as he no longer meets Rojas act criteria. He is also being discharged home with instructions to stop drinking alcohol and attend recovery meetings. Patient acknowledges he has an alcohol problem. This physician does not feel he meets criteria for inpatient psychiatric treatment. Orders Complete Blood Count With Diff (01/03/17 19:10) Comprehensive Metabolic Panel (01/03/17 19:10) Psych Screen (01/03/17 19:10) Drug Screen, Random Urine (01/03/17 19:10) Alcohol (Ethanol) (01/03/17 19:10) Lorazepam Inj (Ativan Inj) (01/03/17 20:45) Ibuprofen (Motrin) (01/04/17 03:15) Diet Regular Basic (01/04/17 Breakfast) Sulfamet-Trimeth Ds 800-160 Mg (Bactrim (01/04/17 10:00) Cephalexin (Keflex) (01/04/17 10:00) Toe (Min 2vws) (01/04/17 10:01) Diet Regular Basic (01/04/17 Lunch) Alcohol Withdrawal Asmt-Ciwa Q4HX18 (01/04/17 11:43) Flumazenil Inj (Romazicon Inj) (01/04/17 11:45) Lorazepam (Ativan) (01/04/17 11:45) Lorazepam Inj (Ativan Inj) (01/04/17 11:45) Lorazepam (Ativan) (01/04/17 11:45) Lorazepam Inj (Ativan Inj) (01/04/17 11:45) Lorazepam Inj (Ativan Inj) (01/04/17 11:45) Lorazepam Inj (Ativan Inj) (01/04/17 11:45) Results Vital Signs Date Time Temp Pulse Resp B/P Pulse Ox O2 Delivery O2 Flow Rate FiO2 01/04/17 11:45 84 110/58 01/04/17 06:39 97.4 84 18 119/67 98 Room Air 01/04/17 01:17 79 16 100/66 94 Room Air 01/03/17 19:16 98.4 99 16 108/65 96 Laboratory Tests Test 01/03/17 19:34 White Blood Count 4.5 Red Blood Count 3.90 Hemoglobin 11.5 Hematocrit 34.1 Mean Corpuscular Volume 87.3 Mean Corpuscular Hemoglobin 29.4 Mean Corpuscular Hemoglobin 33.6 Concent Red Cell Distribution Width 22.2 Platelet Count 263 Mean Platelet Volume 6.7 Neutrophils (%) (Auto) 47.5 Lymphocytes (%) (Auto) 33.9 Monocytes (%) (Auto) 11.4 Eosinophils (%) (Auto) 4.4 Basophils (%) (Auto) 2.8 Neutrophils # (Auto) 2.1 Lymphocytes # (Auto) 1.5 Monocytes # (Auto) 0.5 Eosinophils # (Auto) 0.2 Basophils # (Auto) 0.1 CBC Comment DIFF FINAL Differential Comment Sodium Level 144 Potassium Level 3.8 Chloride Level 109 Carbon Dioxide Level 25.4 Anion Gap 10 Blood Urea Nitrogen 10 Creatinine 0.91 Estimat Glomerular Filtration 87 Rate Random Glucose 95 Calcium Level 7.8 Total Bilirubin 0.2 Aspartate Amino Transf 77 (AST/SGOT) Alanine Aminotransferase 60 (ALT/SGPT) Alkaline Phosphatase 112 Total Protein 7.2 Albumin 3.4 Urine Opiates Screen NEG Urine Barbiturates Screen NEG Urine Amphetamines Screen NEG Urine Benzodiazepines Screen NEG Urine Cocaine Screen NEG Urine Cannabinoids Screen NEG Ethyl Alcohol Level 423 Diagnosis Primary Impression: Alcohol abuse Prescriptions No Active Prescriptions or Reported Meds Condition: Stable Kendall Ahn MD Jan 04, 2017 12:59
== END 2017-01-04 14:52 | disposition home or self-care (01) ==
LOC: NEPE 18:14 → NEPJ 01-04 14:52
DX: F10.129 Alcohol abuse with intoxication, unspecified (principal); I10 Essential (primary) hypertension; F17.210 Nicotine dependence, cigarettes, uncomplicated
CPT/HCPCS: 73660; 80053; 80307; 85025; 99283

== ENCOUNTER 2017-02-05 23:27 | Emergency (ER) | payer OTHER ==
[~2017-02-05] VITALS: Ht 177.8 cm; Wt 85.0 kg
[2017-02-05 23:38] VITALS: BP 103/55; PULSE 80; RESP 22; TEMP 98.6; O2SAT 96
--- NOTE | 2017-02-05 23:59 | PD ---
HPI Chief Complaint: Alcohol/Drug Intoxication Time Seen by Provider: 23:53 Travel History International Travel<30 days: No Contact w/Intl Traveler<30days: No Traveled to known affect area: No History of Present Illness HPI 56-year-old male brought in under [place] act by ED after he was found yelling at passing cars highly intoxicated near roadway unable to care for himself. The patient admits to drinking alcohol tonight. On my assessment the patient is sitting comfortably in a stretcher eating a sandwich. He denies any physical complaints. No suicidal or homicidal ideation. PFSH Past Medical History Autoimmune Disease: No Cancer: No Cardiovascular Problems: Yes Diabetes: No Diminished Hearing: No Gastrointestinal Disorders: No Genitourinary: No Hypertension: Yes Immune Disorder: No Implanted Vascular Access Dvce: No Musculoskeletal: No Neurologic: Yes Psychiatric: No Reproductive: No Respiratory: No Immunizations Current: Yes Seizures: Yes Tetanus Vaccination: < 5 Years Past Surgical History Other Surgery: Yes (HIATAL HERNIA 1978) Social History Alcohol Use: Yes (DAILY) Tobacco Use: Yes (2 ppd) Substance Use: Yes (CHRONIC ALCOHOL ABUSE) Allergies-Medications (Allergen,Severity, Reaction): Coded Allergies: No Known Allergies (Verified , 02/05/17) Reported Meds & Prescriptions Reported Meds & Active Scripts Active No Active Prescriptions or Reported Medications Review of Systems Except as stated in HPI: all other systems reviewed are Neg Physical Exam Narrative GENERAL: Well-developed, well-nourished, awake, alert, disheveled, no acute distress, asking me to fix his TV, eating a sandwich comfortably in the stretcher. SKIN: Focused skin assessment warm/dry. HEAD: Atraumatic. Normocephalic. EYES: Pupils equal and round. No scleral icterus. No injection or drainage. ENT: Mucous membranes pink and moist. NECK: Trachea midline. No JVD. CARDIOVASCULAR: Regular rate and rhythm. RESPIRATORY: No accessory muscle use. Clear to auscultation. Breath sounds equal bilaterally. GASTROINTESTINAL: Abdomen soft, non-tender, nondistended. MUSCULOSKELETAL: No obvious deformities. No clubbing. No cyanosis. No edema. NEUROLOGICAL: Awake and alert. No obvious cranial nerve deficits. Motor grossly within normal limits. Normal speech. No focal deficits. PSYCHIATRIC: Appears intoxicated. Data Data Last Documented VS Vital Signs Date Time Temp Pulse Resp B/P Pulse Ox O2 Delivery O2 Flow Rate FiO2 02/05/17 23:38 98.6 80 22 103/55 96 MDM Medical Decision Making Medical Screen Exam Complete: Yes Emergency Medical Condition: Yes Differential Diagnosis Alcohol intoxication, drug intoxication, malingering Narrative Course Vital signs reviewed. Patient is overall very well-appearing. Again he is eating a sandwich comfortably in the stretcher asked me to fix a TV in his room. He has no physical complaints. He is not suicidal or homicidal. He is currently intoxicated. He will be allowed to sleep off his intoxication in the emergency department. Diagnosis Primary Impression: Alcohol intoxication Qualified Code: F10.120 - Alcohol intoxication, uncomplicated Referrals: [facility] day Scripts No Active Prescriptions or Reported Meds Disposition: 01 DISCHARGE HOME Condition: Stable Ricki Clancy MD Feb 05, 2017 23:59
--- NOTE | 2017-02-06 06:08 | PD ---
Physical Exam Date Seen by Provider: Feb 06, 2017 Time Seen by Provider: 06:07 Narrative GENERAL: This is a well-nourished, well-developed patient, in no apparent distress. SKIN: No rashes, ecchymoses or lesions. Warm and dry. HEAD: Atraumatic. Normocephalic. EYES: PERRL, EOMI, no discharge or injection. No scleral icterus. EARS: Clear NOSE: Nasal turbinates appear normal. THROAT: Mucosa pink and moist. Airway patent. NECK: Trachea midline. supple, moves head freely. LUNGS: Clear to auscultation. CV: Regular in rhythm. ABDOMEN: Soft nontender. EXT: No clubbing cyanosis or edema. Data Data Last Documented VS Vital Signs Date Time Temp Pulse Resp B/P Pulse Ox O2 Delivery O2 Flow Rate FiO2 02/05/17 23:38 98.6 80 22 103/55 96 MDM Medical Record Reviewed: Yes Supervised Visit with TREVON: Yes Differential Diagnosis Differential diagnoses: Alcohol intoxication, substance abuse, electrolyte abnormality, malingering Narrative Course The patient has now sobered up. He is not suicidal or homicidal. He ambulates a strong steady gait. He is cooperative with the medical staff. He is medically stable for discharge. This is alcohol intoxication The patient has been given his discharge instructions. He is then in turn and another back to the nurse stating that he does not need these and that he would be seeing his again in the future. Diagnosis Primary Impression: Alcohol intoxication Qualified Code: F10.120 - Alcohol intoxication, uncomplicated [facility] Patient Instructions: General Instructions, Alcohol Intoxication (ED) Departure Forms: Tests/Procedures Scripts No Active Prescriptions or Reported Meds Disposition: 01 DISCHARGE HOME Condition: Stable Armond Prieto Feb 06, 2017 06:08
[2017-02-06 06:25] VITALS: BP 105/65; PULSE 88; RESP 20; TEMP 98; O2SAT 98
== END 2017-02-06 06:26 | disposition home or self-care (01) ==
LOC: NEPD 23:27
DX: F10.120 Alcohol abuse with intoxication, uncomplicated (principal); I10 Essential (primary) hypertension; F17.210 Nicotine dependence, cigarettes, uncomplicated
CPT/HCPCS: 99284

== ENCOUNTER 2017-02-08 14:30 | Emergency (ER) | payer OTHER ==
[~2017-02-08] VITALS: Ht 182.9 cm; Wt 79.5 kg
[2017-02-08 17:17] VITALS: BP 125/84; PULSE 100; RESP 16; TEMP 98; O2SAT 96
[2017-02-08 20:20] LABS: AUTOMATED NEUTROPHIL # 2.2 TH/MM3 (1.8-7.7); BASOPHIL # 0.1 TH/MM3 (0-0.2); BASOPHIL % 2.1 % (0.0-2.0); EOSINOPHIL # 0.1 TH/MM3 (0-0.4); EOSINOPHIL % 2.4 % (0.0-4.0); HEMATOCRIT 37.5 % (39.0-51.0); HEMO FLAGS DIFF FINAL; LYMPH % 46.5 % (9.0-44.0); LYMPHOCYTE # 2.6 TH/MM3 (1.0-4.8); MEAN CELL VOLUME 90.5 FL (80.0-100.0); MEAN CORPUSCULAR HEMOGLOBIN 31.1 PG (27.0-34.0); MEAN CORPUSCULAR HGB CONC 34.4 % (32.0-36.0); MONO % 9.5 % (0.0-8.0); NEUT % 39.5 % (16.0-70.0); PLATELET COUNT 283 TH/MM3 (150-450); RED BLOOD COUNT 4.14 MIL/MM3 (4.50-5.90); RED CELL DISTRIBUTION WIDTH 18.1 % (11.6-17.2); WHITE BLOOD COUNT 5.6 TH/MM3 (4.0-11.0)
[2017-02-08 20:37] LABS: ANION GAP 12 MEQ/L (5-15); BICARBONATE 27.3 MEQ/L (21.0-32.0); BLOOD UREA NITROGEN 13 MG/DL (7-18); CHLORIDE 105 MEQ/L (98-107); GLOMERULAR FILTRATION RATE 59 ML/MIN (>89); POTASSIUM 3.8 MEQ/L (3.5-5.1); SODIUM (NA) 144 MEQ/L (136-145)
--- NOTE | 2017-02-08 21:28 | PD ---
HPI Chief Complaint: Alcohol/Drug Intoxication Time Seen by Provider: 21:26 Travel History International Travel<30 days: No Contact w/Intl Traveler<30days: No Traveled to known affect area: No History of Present Illness HPI Patient comes in under Rojas act by police for making allegedly suicidal statements. Per Rojas act patient was originally placed under a [place] act and then made statements of wanting to kill himself. Patient denies any homicidal or suicidal ideations. He denies any chest pain, shortness of breath , fevers, nausea, vomiting, abdominal pain. PFSH Past Medical History Autoimmune Disease: No Cancer: No Cardiovascular Problems: Yes Diabetes: No Diminished Hearing: No Gastrointestinal Disorders: No Genitourinary: No Hypertension: Yes Immune Disorder: No Implanted Vascular Access Dvce: No Musculoskeletal: No Neurologic: Yes Psychiatric: No Reproductive: No Respiratory: No Immunizations Current: Yes Seizures: Yes Past Surgical History Other Surgery: Yes (HIATAL HERNIA 1978) Social History Alcohol Use: Yes (DAILY) Tobacco Use: Yes (2 ppd) Substance Use: Yes (CHRONIC ALCOHOL ABUSE) Allergies-Medications (Allergen,Severity, Reaction): Coded Allergies: No Known Allergies (Verified , 02/05/17) Reported Meds & Prescriptions Reported Meds & Active Scripts Active No Active Prescriptions or Reported Medications Review of Systems Except as stated in HPI: all other systems reviewed are Neg Physical Exam Narrative GENERAL: Well-developed, overly nourished, in no acute distress, and non-ill appearing. SKIN: Focused skin assessment warm and dry. HEAD: Atraumatic. Normocephalic. EYES: Pupils equal and round. EOMI. No scleral icterus. No injection or drainage. ENT: No nasal bleeding or discharge. Mucous membranes pink and moist. NECK: Trachea midline. Supple. No nuclear rigidity. CARDIOVASCULAR: Regular rate and rhythm. No murmur appreciated. RESPIRATORY: No accessory muscle use. No respiratory distress. Clear to auscultation. Breath sounds equal bilaterally. MUSCULOSKELETAL: No obvious deformities. No clubbing. No cyanosis. No edema. Full range of motion. NEUROLOGICAL: Awake and alert. No obvious cranial nerve deficits. Motor grossly within normal limits. Normal speech. PSYCHIATRIC: Appropriate mood and affect; insight and judgment normal. Data Data Last Documented VS Vital Signs Date Time Temp Pulse Resp B/P Pulse Ox O2 Delivery O2 Flow Rate FiO2 02/08/17 17:17 98.0 100 16 125/84 96 Orders Complete Blood Count With Diff (02/08/17 19:51) Basic Metabolic Panel (Bmp) (02/08/17 19:51) Salicylates (Aspirin) (02/08/17 19:51) Drug Screen, Random Urine (02/08/17 19:51) Tylenol (Acetaminophen) (02/08/17 19:50) Alcohol (Ethanol) (02/08/17 19:50) Labs Laboratory Tests Test 02/08/17 19:50 White Blood Count 5.6 TH/MM3 Red Blood Count 4.14 MIL/MM3 Hemoglobin 12.9 GM/DL Hematocrit 37.5 % Mean Corpuscular Volume 90.5 FL Mean Corpuscular Hemoglobin 31.1 PG Mean Corpuscular Hemoglobin 34.4 % Concent Red Cell Distribution Width 18.1 % Platelet Count 283 TH/MM3 Mean Platelet Volume 7.2 FL Neutrophils (%) (Auto) 39.5 % Lymphocytes (%) (Auto) 46.5 % Monocytes (%) (Auto) 9.5 % Eosinophils (%) (Auto) 2.4 % Basophils (%) (Auto) 2.1 % Neutrophils # (Auto) 2.2 TH/MM3 Lymphocytes # (Auto) 2.6 TH/MM3 Monocytes # (Auto) 0.5 TH/MM3 Eosinophils # (Auto) 0.1 TH/MM3 Basophils # (Auto) 0.1 TH/MM3 CBC Comment DIFF FINAL Differential Comment Sodium Level 144 MEQ/L Potassium Level 3.8 MEQ/L Chloride Level 105 MEQ/L Carbon Dioxide Level 27.3 MEQ/L Anion Gap 12 MEQ/L Blood Urea Nitrogen 13 MG/DL Creatinine 1.28 MG/DL Estimat Glomerular Filtration 59 ML/MIN Rate Random Glucose 115 MG/DL Calcium Level 8.2 MG/DL Salicylates Level 5.1 MG/DL Acetaminophen Level LESS THAN 2.0 MCG/ML Ethyl Alcohol Level 245 MG/DL MDM Medical Decision Making Medical Screen Exam Complete: Yes Emergency Medical Condition: Yes Differential Diagnosis Homicidal, suicidal, alcohol abuse, alcohol intoxication, other Narrative Course Patient was seen and examined. Labs were obtained and reviewed with the exception of urine drug screen that has not been sent yet. Patient medically cleared for further treatment and evaluation by psych. Final disposition per psych. Diagnosis Primary Impression: Alcohol intoxication Qualified Code: F10.120 - Alcohol intoxication, uncomplicated Scripts No Active Prescriptions or Reported Meds Condition: Frank Bolaños Feb 08, 2017 21:28
[2017-02-08 21:47] LABS: ACETAMINOPHEN LESS THAN 2.0 MCG/ML (10.0-30.0)
[2017-02-08 23:30] VITALS: BP 122/74; PULSE 81; RESP 18; O2SAT 96
[2017-02-08] MEDS ORDERED: LORazepam 2 MG TAB PO PRN (23:30)
[2017-02-08] MEDS ORDERED: LORazepam 2 MG/ML VIAL IV PUSH PRN ×4 (23:30)
[2017-02-08] MEDS ORDERED: FLUMAZENIL 0.5 MG/5 ML VIAL IV PUSH PRN (23:30)
[2017-02-09] MEDS: LORazepam 1 MG TAB PO PRN ×3 (00:08→08:47)
[2017-02-09 00:30] LABS: AMPHETAMINE, URINE NEG (NEG); BARBITURATES, URINE NEG (NEG); COCAINE, URINE NEG (NEG)
[2017-02-09 00:49] VITALS: BP 129/75; PULSE 79; RESP 18; O2SAT 95
[2017-02-09 02:36] VITALS: BP 125/77; PULSE 79; RESP 18; O2SAT 98
[2017-02-09] MEDS ORDERED: IBUPROFEN 600 MG TAB PO ONE (04:30)
[2017-02-09 06:26] VITALS: BP 159/86; PULSE 81; RESP 18; O2SAT 97
[2017-02-09 11:27] VITALS: BP 137/86; PULSE 80; RESP 16; TEMP 98; O2SAT 96
--- NOTE | 2017-02-09 11:31 | PD ---
History of Present Illness Chief Complaint: Alcohol/Drug Intoxication Time Seen by Provider: 11:00 Travel History International Travel<30 Days: No Contact w/Intl Traveler<30days: No Known affected area: No Legal Status Legal Status: Rojas Act Rojas Act Signed By: Chuck Townsend History of Present Illness: History of Present Illness HPI Patient is a 56 year old male with hx of alcohol dependence well known to [facility] who comes in under Rojas act initiated by police for making allegedly suicidal statements. Per Rojas act patient was originally placed under a [place] act and then made statements of wanting to kill himself and to end his life. Patient presents to ED with BAL of 245. He was allowed to sober up in a safe environment. EMR is reviewed. He has had 6 previous visits to ED in 2017 all for alcohol related complaints. Patient is alert and oriented. He is clinically sober with clear speech, ambulating well with no disturbance in gait and no reported symptoms of withdrawal. shilan presents no psychosis and no dee. He admits to having problem with alcohol abuse and yesterday he had no money and bought mouthwash instead. He denies any suicidal ideation, intent or plan. He does admit to multiple stressors including having his 90 year old mother in a jail and he is unable to visit her because he was trespassed. he also reports that his house is in [facility]. He at this time is not ready to engage in treatment for his alcohol dependence. He tells me that he has had 3 years of sobriety in the past and that he drinks now " because I am bored". PFSH Past Medical History Autoimmune Disease: No Cancer: No Cardiovascular Problems: Yes Diabetes: No Diminished Hearing: No Gastrointestinal Disorders: No Genitourinary: No Hypertension: Yes Immune Disorder: No Implanted Vascular Access Dvce: No Musculoskeletal: No Neurologic: Yes Psychiatric: No Reproductive: No Respiratory: No Immunizations Current: Yes Seizures: Yes (Dts) Tetanus Vaccination: < 5 Years Influenza Vaccination: No Past Surgical History Other Surgery: Yes (HIATAL HERNIA 1978) Psychiatric History Psychiatric History Hx Psychiatric Treatment: PT DENIES History of Inpatient Treatment: No Guns or firearms in home: No Social History male. Has a 10 year old daughter. Lives by himself. Unemployed. Hx Alcohol Use: Yes (pt states drink ETOH "a lot today" and drank mouth wash, last drink 1400) Hx Tobacco Use: Yes (2 ppd) Hx Substance Use: No Substance Use Type: Alcohol Other Substances Used: Pt says, "I did some cocaine and some benzos over this incident. Hx of Substance Use Treatment: Yes Family Psychiatric History None reported Allergies-Medications (Allergen,Severity, Reaction): Coded Allergies: No Known Allergies (Verified , 02/05/17) Reported Meds & Prescriptions Reported Meds & Active Scripts Active No Active Prescriptions or Reported Medications Review of Systems Except as stated in HPI: all other systems reviewed are Neg Psychiatric: DENIES: Anxiety, Confusion, Mood changes, Depression, Hallucinations, Agitation, Suicidal Ideation, Homicidal Ideation, Delusions Exam Alert: Yes [place]: Person (ox4) Mood: Calm Affect: Appropriate Speech: Clear, Logical Eye Contact: Normal Memory Intact: Comment (no impairmetn) Hallucinations: Other (deneis any) Delusions: No Suicidal: Ideation (deneis any) Homicidal: Ideation (deneis any) Insight/Judgement poor. poor MDM Medical Decision Making Medical Record Reviewed: Yes Assessment/Plan 56 year old male with history of alcohol dependence who while intoxicated made statements that he wanted to . He did not make any attempts at harming himself. Patient now is clinically sober and he denies any intent , ideation or plan to harm himself or any one else. Unfortunately he is not ready to begin treatment for his alcohol abuse at this time. He is provided psychoeducation. He states " I know w where to get help". Does not meet criteria at this time for BA Lift BA and discharge home. Orders Complete Blood Count With Diff (02/08/17 19:51) Basic Metabolic Panel (Bmp) (02/08/17 19:51) Salicylates (Aspirin) (02/08/17 19:51) Drug Screen, Random Urine (02/08/17 19:51) Tylenol (Acetaminophen) (02/08/17 19:50) Alcohol (Ethanol) (02/08/17 19:50) Alcohol Withdrawal Asmt-Ciwa ONCE (02/08/17 23:24) Flumazenil Inj (Romazicon Inj) (02/08/17 23:30) Lorazepam (Ativan) (02/08/17 23:30) Lorazepam Inj (Ativan Inj) (02/08/17 23:30) Lorazepam (Ativan) (02/08/17 23:30) Lorazepam Inj (Ativan Inj) (02/08/17 23:30) Lorazepam Inj (Ativan Inj) (02/08/17 23:30) Lorazepam Inj (Ativan Inj) (02/08/17 23:30) Psych Screen (02/09/17 00:21) Diet Regular Basic (02/09/17 Breakfast) Ibuprofen (Motrin) (02/09/17 04:30) Results Vital Signs Date Time Temp Pulse Resp B/P Pulse Ox O2 Delivery O2 Flow Rate FiO2 02/09/17 06:26 81 18 159/86 97 Room Air 02/09/17 02:36 79 18 125/77 98 02/09/17 00:49 79 18 129/75 95 02/08/17 23:30 81 18 122/74 96 Room Air 02/08/17 17:17 98.0 100 16 125/84 96 Laboratory Tests Test 02/08/17 02/08/17 19:50 23:50 White Blood Count 5.6 Red Blood Count 4.14 Hemoglobin 12.9 Hematocrit 37.5 Mean Corpuscular Volume 90.5 Mean Corpuscular Hemoglobin 31.1 Mean Corpuscular Hemoglobin 34.4 Concent Red Cell Distribution Width 18.1 Platelet Count 283 Mean Platelet Volume 7.2 Neutrophils (%) (Auto) 39.5 Lymphocytes (%) (Auto) 46.5 Monocytes (%) (Auto) 9.5 Eosinophils (%) (Auto) 2.4 Basophils (%) (Auto) 2.1 Neutrophils # (Auto) 2.2 Lymphocytes # (Auto) 2.6 Monocytes # (Auto) 0.5 Eosinophils # (Auto) 0.1 Basophils # (Auto) 0.1 CBC Comment DIFF FINAL Differential Comment Sodium Level 144 Potassium Level 3.8 Chloride Level 105 Carbon Dioxide Level 27.3 Anion Gap 12 Blood Urea Nitrogen 13 Creatinine 1.28 Estimat Glomerular Filtration 59 Rate Random Glucose 115 Calcium Level 8.2 Salicylates Level 5.1 Acetaminophen Level LESS THAN 2.0 Ethyl Alcohol Level 245 Urine Opiates Screen NEG Urine Barbiturates Screen NEG Urine Amphetamines Screen NEG Urine Benzodiazepines Screen POS Urine Cocaine Screen NEG Urine Cannabinoids Screen NEG Diagnosis Primary Impression: Alcohol intoxication Psychiatrically Cleared: Yes Med/ Other Pt Specific Info: No Meds Exist/No RX given Prescriptions No Active Prescriptions or Reported Meds Disposition: 01 DISCHARGE HOME Condition: Stable Problem Qualifiers Primary Impression: Alcohol intoxication Qualified Code: F10.120 - Alcohol intoxication, uncomplicated Krystal Phoenix Feb 09, 2017 11:31
== END 2017-02-09 11:59 | disposition home or self-care (01) ==
LOC: NEDAMB 14:30 → NEPJ 02-09 11:59
DX: F10.129 Alcohol abuse with intoxication, unspecified (principal); I10 Essential (primary) hypertension
CPT/HCPCS: 80048; 80307; 85025; 99285

== ENCOUNTER 2017-02-16 21:15 | Emergency (ER) | payer SELFPAY ==
[2017-02-16 21:20] VITALS: BP 127/63; PULSE 87; RESP 16; TEMP 98.3; O2SAT 97
--- NOTE | 2017-02-16 23:19 | PD ---
HPI Chief Complaint: Alcohol/Drug Intoxication Time Seen by Provider: 23:18 Travel History International Travel<30 days: No Contact w/Intl Traveler<30days: No Traveled to known affect area: No History of Present Illness HPI Patient is a 56-year-old male who to the emergency department under Kay act. Patient admits to drinking beer heavily today, reportedly stumbling in public and brought here for evaluation under Kay act. Patient admits to drinking beer heavily. Last drink shortly prior to arrival. He denies any complaints. Does not want to quit drinking and does not want treatment. PFSH Past Medical History Autoimmune Disease: No Cancer: No Cardiovascular Problems: Yes Diabetes: No Diminished Hearing: No Gastrointestinal Disorders: No Genitourinary: No Hypertension: Yes Immune Disorder: No Implanted Vascular Access Dvce: No Musculoskeletal: No Neurologic: Yes Psychiatric: No Reproductive: No Respiratory: No Immunizations Current: Yes Seizures: Yes (ALCOHOL RELATED) Past Surgical History Other Surgery: Yes (HIATAL HERNIA 1978) Social History Alcohol Use: Yes (DAILY) Tobacco Use: Yes (2 ppd) Substance Use: No Allergies-Medications (Allergen,Severity, Reaction): Coded Allergies: No Known Allergies (Verified , 02/16/17) Reported Meds & Prescriptions Reported Meds & Active Scripts Active No Active Prescriptions or Reported Medications Review of Systems ROS Limitations: Intoxication Except as stated in HPI: all other systems reviewed are Neg Physical Exam Exam Limitations: Intoxication Narrative GENERAL: Disheveled intoxicated middle-aged male appearing older than stated age in no acute distress SKIN: Focused skin assessment warm/dry. HEAD: Atraumatic. Normocephalic. EYES: Pupils equal and round. No scleral icterus. No injection or drainage. ENT: No nasal bleeding or discharge. Mucous membranes pink and moist. NECK: Supple CARDIOVASCULAR: Regular rate and rhythm. RESPIRATORY: No accessory muscle use. GASTROINTESTINAL: Abdomen soft, non-tender, nondistended. MUSCULOSKELETAL: No obvious deformities. No edema. NEUROLOGICAL: Awake and alert. Strength intact, able to ambulate independently.. Speech slightly slurred PSYCHIATRIC: insight and judgment poor Data Data Last Documented VS Vital Signs Date Time Temp Pulse Resp B/P Pulse Ox O2 Delivery O2 Flow Rate FiO2 02/16/17 21:20 98.3 87 16 127/63 97 MDM Medical Decision Making Medical Screen Exam Complete: Yes Emergency Medical Condition: Yes Medical Record Reviewed: Yes Differential Diagnosis 56-year-old homeless alcoholic male here for public intoxication. Patient denies any complaints. He was brought here because he was reportedly unsteady but is able to ambulate independently in the emergency department. He does not warrant any further ER workup or treatment. Narrative Course Patient was able to ablate independently will be discharged home. Diagnosis Primary Impression: Alcohol intoxication Qualified Code: F10.120 - Alcohol intoxication, uncomplicated Additional Impression: Homeless Referrals: [facility] as needed Additional Instructions: Cut back on your drinking Med/Other Pt SpecificInfo: No Meds Exist/No RX given Scripts No Active Prescriptions or Reported Meds Disposition: 01 DISCHARGE HOME Condition: Stable Christianne Wagoner MD Feb 16, 2017 23:19
== END 2017-02-17 02:02 | disposition home or self-care (01) ==
LOC: NEDAMB 21:15
DX: F10.120 Alcohol abuse with intoxication, uncomplicated (principal); I10 Essential (primary) hypertension; F17.210 Nicotine dependence, cigarettes, uncomplicated; Z59.0 Homelessness
CPT/HCPCS: 99284

== ENCOUNTER 2017-02-19 13:11 | Emergency (ER) | payer SELFPAY ==
[~2017-02-19] VITALS: Ht 177.8 cm; Wt 70.0 kg
[2017-02-19 13:17] VITALS: BP 130/81; PULSE 98; RESP 16; TEMP 98.2; O2SAT 93
[2017-02-19] MEDS ORDERED: SODIUM CHLOR 0.9% 1000 ML INJ 1,000 ML IV SCH (13:27)
--- NOTE | 2017-02-19 13:29 | PD ---
HPI Chief Complaint: Alcohol/Drug Intoxication Time Seen by Provider: 13:29 Travel History International Travel<30 days: No Contact w/Intl Traveler<30days: No Traveled to known affect area: No History of Present Illness HPI 56-year-old male with a history of alcohol abuse is brought to the emergency department by EMS for evaluation of alcohol intoxication. Per EMS report the patient was noted to be asleep on the sidewalk and a bystander called EMS. When they arrived the patient was easily arousable and ambulatory however obviously intoxicated. Patient is stating that he drank half a bottle of mouthwash this morning so that he "could get drunk." States that he drinks beer daily, states he drinks as much as he can get his hands on. States that he is not interested in stopping his alcohol use. He does complain of lower back pain for the past 2-3 days. States that he got drunk and stumbled, falling onto his tox. He is complaining of pain in his lower back since this occurred. Denies any recent head trauma or loss of consciousness. Denies any fever, chills, nausea, vomiting, chest pain, shortness of breath, abdominal pain , black stool, numbness or tingling, weakness. No other complaints. PFSH Past Medical History Autoimmune Disease: No Cancer: No Cardiovascular Problems: Yes Diabetes: No Diminished Hearing: No Gastrointestinal Disorders: No Genitourinary: No Hypertension: Yes Immune Disorder: No Implanted Vascular Access Dvce: No Musculoskeletal: No Neurologic: Yes Psychiatric: No Reproductive: No Respiratory: No Immunizations Current: Yes Seizures: Yes (ALCOHOL RELATED) Past Surgical History Other Surgery: Yes (HIATAL HERNIA 1978) Social History Alcohol Use: Yes (DAILY) Tobacco Use: Yes (2 ppd) Substance Use: No Allergies-Medications (Allergen,Severity, Reaction): Coded Allergies: No Known Allergies (Verified , 02/16/17) Reported Meds & Prescriptions Reported Meds & Active Scripts Active No Active Prescriptions or Reported Medications Review of Systems Except as stated in HPI: all other systems reviewed are Neg Physical Exam Narrative GENERAL: Well-nourished and well-developed male patient in no acute distress who is nontoxic appearing. SKIN: Warm and dry. HEAD: Normocephalic and atraumatic. EYES: No injection, drainage, or hyphema noted. PERRLA. EOMI. ENT: No nasal drainage noted. Oropharynx is clear. NECK: Supple and the trachea is midline. CARDIOVASCULAR: Regular rate and rhythm. RESPIRATORY: Breath sounds are equal bilaterally with no accessory muscle use, wheezing, rhonchi, or crackles. GASTROINTESTINAL: Abdomen is soft, non-tender, and nondistended. MUSCULOSKELETAL: No obvious deformities, swelling, cyanosis, or ecchymosis is present throughout the upper and lower extremities. Patient has full range of motion without any signs of neurovascular compromise. BACK: Mild tenderness to palpation of lumbar region No obvious deformities, bony point tenderness, or crepitus noted throughout the thoracic and lumbar vertebrae. NEUROLOGICAL: Awake, alert, and oriented. Normal speech and gait. Cranial nerves are grossly intact. Data Data Last Documented VS Vital Signs Date Time Temp Pulse Resp B/P Pulse Ox O2 Delivery O2 Flow Rate FiO2 02/19/17 14:07 99 Room Air 02/19/17 13:19 16 02/19/17 13:17 98.2 98 130/81 Orders Spine, Lumbar Comp W/Obliq (02/19/17 13:27) Pelvis, Ap Only (Routine) (02/19/17 13:27) Complete Blood Count With Diff (02/19/17 13:27) Comprehensive Metabolic Panel (02/19/17 13:27) Iv Access Insert/Monitor (02/19/17 13:27) Ecg Monitoring (02/19/17 13:27) Oximetry (02/19/17 13:27) Sodium Chlor 0.9% 1000 Ml Inj (Ns 1000 M (02/19/17 13:27) Sodium Chloride 0.9% Flush (Ns Flush) (02/19/17 13:30) Alcohol (Ethanol) (02/19/17 13:27) Diet Regular Basic (02/19/17 Lunch) Labs Laboratory Tests Test 02/19/17 14:00 White Blood Count 4.6 TH/MM3 Red Blood Count 4.33 MIL/MM3 Hemoglobin 13.4 GM/DL Hematocrit 39.7 % Mean Corpuscular Volume 91.7 FL Mean Corpuscular Hemoglobin 31.0 PG Mean Corpuscular Hemoglobin 33.8 % Concent Red Cell Distribution Width 17.3 % Platelet Count 288 TH/MM3 Mean Platelet Volume 7.0 FL Neutrophils (%) (Auto) 57.8 % Lymphocytes (%) (Auto) 28.7 % Monocytes (%) (Auto) 10.2 % Eosinophils (%) (Auto) 2.1 % Basophils (%) (Auto) 1.2 % Neutrophils # (Auto) 2.6 TH/MM3 Lymphocytes # (Auto) 1.3 TH/MM3 Monocytes # (Auto) 0.5 TH/MM3 Eosinophils # (Auto) 0.1 TH/MM3 Basophils # (Auto) 0.1 TH/MM3 CBC Comment DIFF FINAL Differential Comment Sodium Level 141 MEQ/L Potassium Level 4.0 MEQ/L Chloride Level 107 MEQ/L Carbon Dioxide Level 22.9 MEQ/L Anion Gap 11 MEQ/L Blood Urea Nitrogen 13 MG/DL Creatinine 1.28 MG/DL Estimat Glomerular Filtration 59 ML/MIN Rate Random Glucose 75 MG/DL Calcium Level 8.3 MG/DL Total Bilirubin 0.3 MG/DL Aspartate Amino Transf 80 U/L (AST/SGOT) Alanine Aminotransferase 62 U/L (ALT/SGPT) Alkaline Phosphatase 125 U/L Total Protein 7.9 GM/DL Albumin 4.0 GM/DL Ethyl Alcohol Level 375 MG/DL [facility] Medical Decision Making Medical Screen Exam Complete: Yes Emergency Medical Condition: Yes Differential Diagnosis Alcohol intoxication versus electrolyte abnormality versus dehydration versus lower back pain versus fracture Narrative Course 56-year-old male is brought to the emergency department by EMS for evaluation of alcohol intoxication. Patient is afebrile, vital signs are stable. He is complaining of lower back pain. Will do labs and x-rays. CBC is unremarkable. CMP is unremarkable. EtOH is 375. X-ray of the lumbar spine is negative for any acute abnormalities. X-ray of the pelvis is negative for any acute abnormalities. The patient will be allowed to sleep here in the emergency department. Once he is found to be clinically sober he'll be stable for discharge. Diagnosis Primary Impression: Alcohol intoxication Referrals: [facility] Patient Instructions: General Instructions Additional Instructions: Decrease your alcohol intake. Follow-up with Taras Alfred. Med/Other Pt SpecificInfo: No Change to Meds Scripts No Active Prescriptions or Reported Meds Disposition: 01 DISCHARGE HOME Condition: Stable Emeli Hodges Feb 19, 2017 13:29
[2017-02-19] MEDS ORDERED: SODIUM CHLORIDE 0.9% FLUSH 10 ML FLUSH IV FLUSH PRN (13:30)
[2017-02-19 14:07] VITALS: O2SAT 99
[2017-02-19 14:18] LABS: AUTOMATED NEUTROPHIL # 2.6 TH/MM3 (1.8-7.7); BASOPHIL # 0.1 TH/MM3 (0-0.2); BASOPHIL % 1.2 % (0.0-2.0); EOSINOPHIL # 0.1 TH/MM3 (0-0.4); EOSINOPHIL % 2.1 % (0.0-4.0); HEMATOCRIT 39.7 % (39.0-51.0); HEMO FLAGS DIFF FINAL; LYMPH % 28.7 % (9.0-44.0); LYMPHOCYTE # 1.3 TH/MM3 (1.0-4.8); MEAN CELL VOLUME 91.7 FL (80.0-100.0); MEAN CORPUSCULAR HGB CONC 33.8 % (32.0-36.0); MONO % 10.2 % (0.0-8.0); NEUT % 57.8 % (16.0-70.0); PLATELET COUNT 288 TH/MM3 (150-450); RED BLOOD COUNT 4.33 MIL/MM3 (4.50-5.90); RED CELL DISTRIBUTION WIDTH 17.3 % (11.6-17.2); WHITE BLOOD COUNT 4.6 TH/MM3 (4.0-11.0)
--- NOTE | 2017-02-19 14:21 | RADRPT ---
EXAM DATE/TIME: 02/19/2017 14:04 [facility] COMPARISON: No previous studies available for comparison. INDICATIONS : Fell. MEDICAL HISTORY : None. SURGICAL HISTORY : None. ENCOUNTER: Initial ACUITY: 1 day PAIN SCORE: 7/10 LOCATION: Bilateral pelvis FINDINGS: A single frontal view of the pelvis demonstrates no evidence of fracture. The bony pelvic ring is in tact. Bony mineralization is normal. The soft tissues are intact. CONCLUSION: Unremarkable examination of the pelvis. Derik Mccarthy MD on February 19, 2017 at 14:15 Board Certified Radiologist. This report was verified electronically.
--- NOTE | 2017-02-19 14:26 | RADRPT ---
EXAM DATE/TIME: 02/19/2017 13:56 [facility] COMPARISON: No previous studies available for comparison. INDICATIONS : Or back pain after fall.. MEDICAL HISTORY : None. SURGICAL HISTORY : None. ENCOUNTER: Initial ACUITY: 1 day PAIN SCORE: 7/10 LOCATION: Bilateral lumbar spine FINDINGS: There are five non-rib bearing vertebral bodies. The vertebral bodies are in normal alignment withou t evidence of subluxation or scoliosis. Degenerative disc changes are noted with disc space narrowing and hypertrophic change at the L2-3 through L5-S1 levels. There are mild degenerative changes involv ing the facet joints. The posterior elements are intact without evidence of spondylolysis. The pedic les are intact. Bony mineralization is normal. No fracture is identified. CONCLUSION: 1. No acute fracture or malalignment. 2. Degenerative disc and degenerative joint changes. Derik Mccarthy MD on February 19, 2017 at 14:20 Board Certified Radiologist. This report was verified electronically.
[2017-02-19 14:37] LABS: ANION GAP 11 MEQ/L (5-15)
[2017-02-19 14:43] LABS: ALKALINE PHOSPHATASE 125 U/L (45-117); ALT (GPT) 62 U/L (12-78); AST (GOT) 80 U/L (15-37); BICARBONATE 22.9 MEQ/L (21.0-32.0); BLOOD UREA NITROGEN 13 MG/DL (7-18); CHLORIDE 107 MEQ/L (98-107); GLOMERULAR FILTRATION RATE 59 ML/MIN (>89); SODIUM (NA) 141 MEQ/L (136-145); TOTAL BILIRUBIN ADULT 0.3 MG/DL (0.2-1.0)
[2017-02-19 18:30] VITALS: BP 145/82; PULSE 78; RESP 16; O2SAT 97
== END 2017-02-19 18:59 | disposition home or self-care (01) ==
LOC: NEPC 13:11
DX: F10.129 Alcohol abuse with intoxication, unspecified (principal); M54.5 Low back pain; Y90.8 Blood alcohol level of 240 mg/100 ml or more
CPT/HCPCS: 72110; 72170; 80053; 80307; 85025; 99284; J7030

== ENCOUNTER 2017-02-20 13:10 | Emergency (ER) | payer SELFPAY ==
[~2017-02-20] VITALS: Ht 182.9 cm; Wt 80.0 kg
[2017-02-20 13:16] VITALS: BP 121/71; PULSE 98; RESP 12; TEMP 98.2; O2SAT 96
--- NOTE | 2017-02-20 14:05 | PD ---
HPI Chief Complaint: Alcohol/Drug Intoxication Time Seen by Provider: 13:22 Travel History International Travel<30 days: No Contact w/Intl Traveler<30days: No Traveled to known affect area: No History of Present Illness HPI This is a 56-year-old male who has a history of alcoholism who presents to the emergency department having been drinking Listerine. He was found intoxicated on the side of the road. He was just here yesterday with the same. He reports that he drinks more ever since his [place] was [place]. He denies any current thoughts of hurting himself or others. PFSH Past Medical History Autoimmune Disease: No Cancer: No Cardiovascular Problems: Yes Diabetes: No Diminished Hearing: No Gastrointestinal Disorders: No Genitourinary: No Hypertension: Yes Immune Disorder: No Implanted Vascular Access Dvce: No Musculoskeletal: No Neurologic: Yes Psychiatric: No Reproductive: No Respiratory: No Immunizations Current: Yes Seizures: Yes (ALCOHOL RELATED) Tetanus Vaccination: < 5 Years Influenza Vaccination: No ?: Not Past Surgical History Other Surgery: Yes (HIATAL HERNIA 1978) Social History Alcohol Use: Yes (DAILY) Tobacco Use: Yes (2 ppd) Substance Use: No Allergies-Medications (Allergen,Severity, Reaction): Coded Allergies: No Known Allergies (Verified , 02/16/17) Reported Meds & Prescriptions Reported Meds & Active Scripts Active No Active Prescriptions or Reported Medications Review of Systems ROS Limitations: Intoxication Physical Exam Narrative GENERAL: Disheveled SKIN: Focused skin assessment warm and dry. HEAD: Atraumatic. Normocephalic. EYES: Pupils equal and round. No injection or drainage. ENT: Moist mucous membranes NECK: Trachea midline. CARDIOVASCULAR: Regular rate and rhythm. No murmur appreciated. RESPIRATORY: Clear to auscultation. Breath sounds equal bilaterally. GASTROINTESTINAL: Abdomen soft, non-tender, nondistended. MUSCULOSKELETAL: No obvious deformities. NEUROLOGICAL: Awake and alert. No obvious cranial nerve deficits. Moving all extremities. PSYCHIATRIC: Appropriate mood and affect; insight and judgment normal. Data Data Last Documented VS Vital Signs Date Time Temp Pulse Resp B/P Pulse Ox O2 Delivery O2 Flow Rate FiO2 02/20/17 13:35 16 02/20/17 13:16 98.2 98 121/71 96 Orders Diet Regular Basic (02/20/17 Lunch) [facility] Medical Decision Making Medical Screen Exam Complete: Yes Emergency Medical Condition: Yes Interpretation(s) Afebrile, mild tachycardia, normotensive Differential Diagnosis Acute alcohol intoxication, substance intoxication, depression Narrative Course This is a 56-year-old gentleman who presents to the emergency department having been drinking Listerine. Patient appears clinically intoxicated with alcohol. He has no other medical complaints. He was just seen here February 19 in the setting of similar complaints and had blood work done at that time which was reassuring. Patient was observed until sober and discharged. Diagnosis Primary Impression: Alcohol intoxication Qualified Code: F10.120 - Alcohol intoxication, uncomplicated Patient Instructions: General Instructions Additional Instructions: Follow up with Christa Alfred in regards to psychiatric or substance related issues at: [address] [place] [address] Med/Other Pt SpecificInfo: No Change to Meds Scripts No Active Prescriptions or Reported Meds Disposition: 01 DISCHARGE HOME Condition: Stable Khadijah Chavira MD Feb 20, 2017 14:05
== END 2017-02-20 20:49 | disposition home or self-care (01) ==
LOC: NEPC 13:10
DX: F10.129 Alcohol abuse with intoxication, unspecified (principal); I10 Essential (primary) hypertension; F17.210 Nicotine dependence, cigarettes, uncomplicated
CPT/HCPCS: 99283

== ENCOUNTER 2017-02-21 23:10 | Emergency (ER) | payer SELFPAY ==
[2017-02-21 23:37] VITALS: BP 113/77; PULSE 81; RESP 16; TEMP 98.2; O2SAT 93
--- NOTE | 2017-02-21 23:45 | PD ---
HPI Chief Complaint: Alcohol/Drug Intoxication Time Seen by Provider: 23:38 Travel History International Travel<30 days: No Contact w/Intl Traveler<30days: No Traveled to known affect area: No History of Present Illness HPI 56-year-old male was brought in by EMS after patient was found intoxicated on the street. Patient denies any problem. Patient has been to [facility] emergency room multiple times in the past for the same problem. PFSH Past Medical History Autoimmune Disease: No Cancer: No Cardiovascular Problems: Yes Diabetes: No Diminished Hearing: No Gastrointestinal Disorders: No Genitourinary: No Hypertension: Yes Immune Disorder: No Implanted Vascular Access Dvce: No Musculoskeletal: No Neurologic: Yes Psychiatric: No Reproductive: No Respiratory: No Immunizations Current: Yes Seizures: Yes (ALCOHOL RELATED) Past Surgical History Other Surgery: Yes (HIATAL HERNIA 1978) Social History Alcohol Use: Yes (DAILY) Tobacco Use: Yes (2 ppd) Substance Use: No Allergies-Medications (Allergen,Severity, Reaction): Coded Allergies: No Known Allergies (Verified , 02/21/17) Reported Meds & Prescriptions Reported Meds & Active Scripts Active No Active Prescriptions or Reported Medications Review of Systems General / Constitutional: No: Fever Eyes: No: Visual changes HENT: No: Headaches Cardiovascular: No: Chest Pain or Discomfort Respiratory: No: Shortness of Breath Gastrointestinal: No: Abdominal Pain Genitourinary: No: Dysuria Musculoskeletal: No: Pain Skin: No Rash Neurologic: No: Weakness Psychiatric: No: Depression Endocrine: No: Polydipsia Hematologic/Lymphatic: No: Easy Bruising Physical Exam Narrative GENERAL: Well-nourished, well-developed patient. SKIN: Focused skin assessment warm/dry. HEAD: Normocephalic. No obvious head injury. EYES: No scleral icterus. No injection or drainage. Pupils 3 mm equal reactive. NECK: Supple, trachea midline. No JVD or lymphadenopathy. CARDIOVASCULAR: Regular rate and rhythm without murmurs, gallops, or rubs. RESPIRATORY: Breath sounds equal bilaterally. No accessory muscle use. GASTROINTESTINAL: Abdomen soft, non-tender, nondistended. MUSCULOSKELETAL: No cyanosis, or edema. BACK: Nontender without obvious deformity. No CVA tenderness. Neurologic exam: Patient's intoxicated. No obvious focal neurological deficit. MDM Medical Decision Making Medical Screen Exam Complete: Yes Emergency Medical Condition: Yes Medical Record Reviewed: Yes Differential Diagnosis Differential diagnosis including intoxication, substance abuse, electrolyte imbalance, dehydration. Narrative Course 56-year-old male was brought in by EMS. Patient was found intoxicated on the street. Patient has been to [facility] multiple times in the past with same problem. Workup has been negative in the past. Patient's resting comfortably in bed. Patient will be observed until he is awake alert oriented 3 and steady on his feet to be safely discharged. Diagnosis Primary Impression: Alcohol intoxication Qualified Code: F10.120 - Alcohol intoxication, uncomplicated Patient Instructions: General Instructions Additional Instructions: Advised [facility]. Med/Other Pt SpecificInfo: No Meds Exist/No RX given Scripts No Active Prescriptions or Reported Meds Disposition: 01 DISCHARGE HOME Condition: Stable Long Pickard MD Feb 21, 2017 23:45
[2017-02-22 00:32] VITALS: PULSE 82; RESP 16; O2SAT 93
[2017-02-22 02:21] VITALS: PULSE 79; RESP 16; O2SAT 93
[2017-02-22 04:46] VITALS: BP 93/65; PULSE 72; RESP 18; O2SAT 96
[2017-02-22 06:20] VITALS: BP 109/73; PULSE 78; RESP 18; O2SAT 96
== END 2017-02-22 06:28 | disposition home or self-care (01) ==
LOC: PHED 23:10
DX: F10.120 Alcohol abuse with intoxication, uncomplicated (principal); I10 Essential (primary) hypertension; F17.210 Nicotine dependence, cigarettes, uncomplicated
CPT/HCPCS: 99283

== ENCOUNTER 2017-02-22 11:21 | Emergency (ER) | payer SELFPAY ==
[2017-02-22 11:29] VITALS: BP 116/72; PULSE 93; RESP 17; O2SAT 96
--- NOTE | 2017-02-22 11:38 | PD ---
HPI Chief Complaint: Alcohol/Drug Intoxication Time Seen by Provider: 11:27 Travel History International Travel<30 days: No Contact w/Intl Traveler<30days: No Traveled to known affect area: No History of Present Illness HPI The patient is a 56-year-old male who presents to the emergency department via EMS for alcohol intoxication. The patient states he was discharged from the emergency department this morning, wanted to resume drinking alcohol but did not have any money. Therefore, the patient went to a store, stool bottle of Listerine, and drank a bottle of Listerine. Apparently the patient fell asleep next to a bus stop and bystanders called EMS. Upon arrival the patient is awake, alert, and oriented 4. He admits to drinking Listerine prior to arrival. He denies any chest pain, shortness breath, nausea , vomiting, or abdominal pain. The patient does have a history of chronic alcohol abuse. He denies any current physical complaints. PFSH Past Medical History Anemia: Yes Autoimmune Disease: No Depression: Yes (WITH SUICIDAL IDEATIONS in past) Cancer: No Cardiovascular Problems: Yes Diabetes: No Diminished Hearing: No Gastrointestinal Disorders: Yes (GI BLEED) Genitourinary: No Hiatal Hernia: Yes (SURGERY 1978) Hypertension: Yes Immune Disorder: No Implanted Vascular Access Dvce: No Musculoskeletal: No Neurologic: Yes Psychiatric: No Reproductive: No Respiratory: No Immunizations Current: Yes Seizures: Yes (ALCOHOL RELATED) Influenza Vaccination: No Past Surgical History Other Surgery: Yes (HIATAL HERNIA 1978) Social History Alcohol Use: Yes Tobacco Use: Yes Substance Use: Yes (cocaine in past) Allergies-Medications (Allergen,Severity, Reaction): Coded Allergies: No Known Allergies (Verified , 02/22/17) Reported Meds & Prescriptions Reported Meds & Active Scripts Active No Active Prescriptions or Reported Medications Review of Systems Except as stated in HPI: all other systems reviewed are Neg Cardiovascular: No: Chest Pain or Discomfort Respiratory: No: Shortness of Breath Gastrointestinal: No: Nausea, Vomiting, Abdominal Pain Neurologic: No: Change in Mentation Psychiatric: Positive: Substance Abuse (alcohol abuse) Physical Exam Narrative GENERAL: Awake, alert, 56-year-old male appears his stated age and is in no acute respiratory distress. SKIN: Focused skin assessment warm/dry. HEAD: Atraumatic. Normocephalic. EYES: Pupils equal and round. Pupils are 4 mm bilateral and reactive. ENT: No nasal bleeding or discharge. Mucous membranes pink and moist. NECK: Trachea midline. No JVD. CARDIOVASCULAR: Regular rate and rhythm. No murmur appreciated. RESPIRATORY: No accessory muscle use. Clear to auscultation. Breath sounds equal bilaterally. GASTROINTESTINAL: Abdomen soft, non-tender, nondistended. No rebound tenderness. MUSCULOSKELETAL: No obvious deformities. No clubbing. No cyanosis. No edema. NEUROLOGICAL: Awake and alert. No obvious cranial nerve deficits. Motor grossly within normal limits. Normal speech. Oriented 4. Follows commands without difficulty. PSYCHIATRIC: Appropriate mood and affect; insight and judgment normal. Data Data Last Documented VS Vital Signs Date Time Temp Pulse Resp B/P Pulse Ox O2 Delivery O2 Flow Rate FiO2 02/22/17 11:29 93 17 116/72 96 Orders Basic Metabolic Panel (Bmp) (02/22/17 11:32) Alcohol (Ethanol) (02/22/17 11:32) Labs Laboratory Tests Test 02/22/17 11:40 Sodium Level 143 MEQ/L Potassium Level 3.5 MEQ/L Chloride Level 110 MEQ/L Carbon Dioxide Level 23.8 MEQ/L Anion Gap 9 MEQ/L Blood Urea Nitrogen 9 MG/DL Creatinine 0.73 MG/DL Estimat Glomerular Filtration 112 ML/MIN Rate Random Glucose 93 MG/DL Calcium Level 7.9 MG/DL Ethyl Alcohol Level 391 MG/DL [facility] Medical Decision Making Medical Screen Exam Complete: Yes Emergency Medical Condition: Yes Medical Record Reviewed: Yes Interpretation(s) Laboratory Tests Test 02/22/17 11:40 Sodium Level 143 MEQ/L Potassium Level 3.5 MEQ/L Chloride Level 110 MEQ/L Carbon Dioxide Level 23.8 MEQ/L Anion Gap 9 MEQ/L Blood Urea Nitrogen 9 MG/DL Creatinine 0.73 MG/DL Estimat Glomerular Filtration 112 ML/MIN Rate Random Glucose 93 MG/DL Calcium Level 7.9 MG/DL Ethyl Alcohol Level 391 MG/DL Differential Diagnosis Differential diagnosis includes alcohol abuse, alcohol ingestion, isopropyl alcohol ingestion, hyponatremia, dehydration. Narrative Course BMP and alcohol level were sent to lab. Patient was monitored in the emergency department. Sodium is normal. Anion gap is normal. Alcohol level is elevated at 391. The patient will be discharged home once he is able to ambulate and has a safe disposition home. Diagnosis Primary Impression: Alcohol intoxication Qualified Code: F10.120 - Alcohol intoxication, uncomplicated Patient Instructions: General Instructions Additional Instructions: Decrease alcohol intake. Follow-up with a primary physician. Return if symptoms worsen or progress. Med/Other Pt SpecificInfo: No Change to Meds Scripts No Active Prescriptions or Reported Meds Disposition: 01 DISCHARGE HOME Condition: Stable Stewart Leslie MD Feb 22, 2017 11:38
[2017-02-22 12:23] LABS: BICARBONATE 23.8 MEQ/L (21.0-32.0); POTASSIUM 3.5 MEQ/L (3.5-5.1)
== END 2017-02-22 18:53 | disposition home or self-care (01) ==
LOC: NEPC 11:21 → NEDAMB 18:53
DX: I10 Essential (primary) hypertension (principal); F14.21 Cocaine dependence, in remission; F32.9 Major depressive disorder, single episode, unspecified; F10.129 Alcohol abuse with intoxication, unspecified; Y90.8 Blood alcohol level of 240 mg/100 ml or more
CPT/HCPCS: 80048; 80307; 99284

== ENCOUNTER 2017-02-23 22:48 | Emergency (ER) | payer SELFPAY ==
[~2017-02-23] VITALS: Ht 182.9 cm; Wt 89.0 kg
[2017-02-23 22:58] VITALS: BP 155/92; PULSE 75; RESP 14; TEMP 98.5; O2SAT 97
--- NOTE | 2017-02-24 04:42 | PD ---
HPI Chief Complaint: Alcohol/Drug Intoxication Time Seen by Provider: 04:33 Travel History International Travel<30 days: No Contact w/Intl Traveler<30days: No Traveled to known affect area: No History of Present Illness HPI 56 year old white male well-known to the ER for multiple visits due to alcohol. Patient once again presents under a [place]man acted alcohol intoxication. The patient was noted to be intoxicated on the street and unable to care for himself. No meaningful history is obtainable at this time due to his alcohol intoxication. There is no evidence of trauma. The patient was just seen in the ER last evening. PFSH Past Medical History Anemia: Yes Autoimmune Disease: No Depression: Yes (WITH SUICIDAL IDEATIONS in past) Cancer: No Cardiovascular Problems: Yes Diabetes: No Diminished Hearing: No Gastrointestinal Disorders: Yes (GI BLEED) Genitourinary: No Hiatal Hernia: Yes (SURGERY 1978) Hypertension: Yes Immune Disorder: No Implanted Vascular Access Dvce: No Musculoskeletal: No Neurologic: Yes Psychiatric: No Reproductive: No Respiratory: No Immunizations Current: Yes Seizures: Yes (ALCOHOL RELATED) Past Surgical History Surgical History: No Previous Surgery Other Surgery: Yes (HIATAL HERNIA 1978) Social History Alcohol Use: Yes (18 beers a day) Tobacco Use: Yes (2ppd) Substance Use: Yes (cocaine in past) Allergies-Medications (Allergen,Severity, Reaction): Coded Allergies: No Known Allergies (Verified , 02/22/17) Reported Meds & Prescriptions Reported Meds & Active Scripts Active No Active Prescriptions or Reported Medications Review of Systems ROS Limitations: Intoxication Physical Exam Narrative GENERAL: Well-nourished, well-developed patient. Smells of EtOH and appears heavily intoxicated. He has voided on himself. SKIN: Warm and dry. HEAD: Normocephalic and atraumatic. EYES: No scleral icterus. No injection or drainage. ENT: No nasal drainage noted. Mucous membranes pink. Airway patent. NECK: Supple, trachea midline. Moves head freely without obvious discomfort. CARDIOVASCULAR: Regular rate and rhythm without murmurs, gallops, or rubs. RESPIRATORY: Breath sounds equal bilaterally. No accessory muscle use. GASTROINTESTINAL: Abdomen soft, non-tender, nondistended. EXTREMITIES: No cyanosis or edema. BACK: Nontender without obvious deformity. No CVA tenderness. NEURO: Patient is alert and oriented. no sensorimotor deficits. Nonfocal. Slurred speech. PSYCH: No delusions. No auditory or visual hallucinations. Data Data Last Documented VS Vital Signs Date Time Temp Pulse Resp B/P Pulse Ox O2 Delivery O2 Flow Rate FiO2 02/23/17 22:58 98.5 75 14 155/92 97 MDM Medical Decision Making Medical Screen Exam Complete: Yes Emergency Medical Condition: Yes Medical Record Reviewed: Yes Differential Diagnosis Differential diagnoses: Alcohol intoxication, substance abuse, electrolyte abnormality, malingering Narrative Course This is a 56-year-old white male heavily intoxicated under [place]man act. There is no evidence of trauma. Patient is arousable. He will be allowed to sleep it off here in the ER once he exhibits sobriety's is [place] act will be lifted and he will be allowed to leave. This is alcohol intoxication, Marchman act Diagnosis Primary Impression: Alcohol intoxication Qualified Code: F10.120 - Alcohol intoxication, uncomplicated Patient Instructions: General Instructions Additional Instructions: Rest. Increase fluids. Avoid alcohol. Avoid illegal substances. Follow-up with Dany Alfred for detox. Do not operate a car or any heavy machinery under the influence of alcohol or drugs. Follow-up with a medical doctor this week. Return to the ER for emergencies Med/Other Pt SpecificInfo: No Meds Exist/No RX given Scripts No Active Prescriptions or Reported Meds Disposition: 01 DISCHARGE HOME Condition: Stable Armond Prieto Feb 24, 2017 04:42
== END 2017-02-24 07:00 | disposition home or self-care (01) ==
LOC: NEPD 22:48 → NEDAMB 02-24 07:00
DX: F10.120 Alcohol abuse with intoxication, uncomplicated (principal); I10 Essential (primary) hypertension; F17.200 Nicotine dependence, unspecified, uncomplicated; Z86.2 Personal history of diseases of the blood and blood-forming organs and certain disorders involving the immune mechanism; Z86.59 Personal history of other mental and behavioral disorders; Z86.79 Personal history of other diseases of the circulatory system; Z87.19 Personal history of other diseases of the digestive system; Z86.69 Personal history of other diseases of the nervous system and sense organs
CPT/HCPCS: 99284

== ENCOUNTER 2017-02-24 12:39 | Emergency (ER) | payer SELFPAY ==
[~2017-02-24] VITALS: Ht 182.9 cm; Wt 81.8 kg
[2017-02-24 13:48] VITALS: BP 111/68; PULSE 88; RESP 14; TEMP 98; O2SAT 98
[2017-02-24] MEDS ORDERED: SODIUM CHLOR 0.9% 1000 ML INJ 1,000 ML IV ONE (14:00)
--- NOTE | 2017-02-24 14:01 | PD ---
HPI Chief Complaint: Alcohol/Drug Intoxication Time Seen by Provider: 13:50 Travel History International Travel<30 days: No Contact w/Intl Traveler<30days: No Traveled to known affect area: No History of Present Illness HPI This patient is a local alcoholic who comes frequently. He was seen by passersby sitting on the ground acting intoxicated so police and paramedics were called. He has no complaint. He admits to drinking heavily. Denies intentional overdose or drug use. Severity is moderate. Duration one day. No alleviating factors PFSH Past Medical History Anemia: Yes Autoimmune Disease: No Depression: Yes (WITH SUICIDAL IDEATIONS in past) Cancer: No Cardiovascular Problems: Yes Diabetes: No Diminished Hearing: No Gastrointestinal Disorders: Yes (GI BLEED) Genitourinary: No Hiatal Hernia: Yes (SURGERY 1978) Hypertension: Yes Immune Disorder: No Implanted Vascular Access Dvce: No Musculoskeletal: No Neurologic: Yes Psychiatric: No Reproductive: No Respiratory: No Immunizations Current: Yes Seizures: Yes (ALCOHOL RELATED) Tetanus Vaccination: Unknown Past Surgical History Other Surgery: Yes (HIATAL HERNIA 1978) Social History Alcohol Use: Yes Tobacco Use: No Substance Use: No Allergies-Medications (Allergen,Severity, Reaction): Coded Allergies: No Known Allergies (Verified , 02/22/17) Reported Meds & Prescriptions Reported Meds & Active Scripts Active No Active Prescriptions or Reported Medications Review of Systems General / Constitutional: No: Fever Eyes: No: Visual changes HENT: No: Headaches Cardiovascular: No: Chest Pain or Discomfort Respiratory: No: Shortness of Breath Gastrointestinal: No: Abdominal Pain Genitourinary: No: Dysuria Musculoskeletal: No: Pain Skin: No Rash Neurologic: Positive: Slurred Speech, No: Weakness Psychiatric: Positive: Substance Abuse, No: Depression Endocrine: No: Polydipsia Hematologic/Lymphatic: No: Easy Bruising Physical Exam Narrative GENERAL: Thin disheveled well-developed patient in no apparent distress. SKIN: Focused skin assessment reveals no rash and nodules. Skin is Warm and dry. HEAD: Atraumatic. Normocephalic. EYES: Pupils equal and round. No scleral icterus. No injection or drainage. ENT: No nasal bleeding or discharge. Mucous membranes pink and moist. NECK: Trachea midline. No JVD. CARDIOVASCULAR: Regular rate and rhythm. No murmur appreciated. RESPIRATORY: No accessory muscle use. Clear to auscultation. Breath sounds equal bilaterally. GASTROINTESTINAL: Abdomen soft, non-tender, nondistended. Hepatic and splenic margins not palpable. MUSCULOSKELETAL: No obvious deformities. No clubbing. No cyanosis. No edema. NEUROLOGICAL: Awake and alert. No obvious cranial nerve deficits. Motor grossly within normal limits. Slight slurring of speech. PSYCHIATRIC: Appropriate mood and affect; insight and judgment poor. Data Data Last Documented VS Vital Signs Date Time Temp Pulse Resp B/P Pulse Ox O2 Delivery O2 Flow Rate FiO2 02/24/17 13:53 83 16 97 Room Air 02/24/17 13:48 98.0 111/68 Orders Iv Access Insert/Monitor (02/24/17 13:57) Complete Blood Count With Diff (02/24/17 13:57) Basic Metabolic Panel (Bmp) (02/24/17 13:57) Alcohol (Ethanol) (02/24/17 13:57) Sodium Chlor 0.9% 1000 Ml Inj (Ns 1000 M (02/24/17 14:00) Labs Laboratory Tests Test 02/24/17 14:00 White Blood Count 8.0 TH/MM3 Red Blood Count 3.80 MIL/MM3 Hemoglobin 11.8 GM/DL Hematocrit 34.8 % Mean Corpuscular Volume 91.4 FL Mean Corpuscular Hemoglobin 31.0 PG Mean Corpuscular Hemoglobin 34.0 % Concent Red Cell Distribution Width 17.0 % Platelet Count 251 TH/MM3 Mean Platelet Volume 7.2 FL Neutrophils (%) (Auto) 72.8 % Lymphocytes (%) (Auto) 18.6 % Monocytes (%) (Auto) 6.0 % Eosinophils (%) (Auto) 1.6 % Basophils (%) (Auto) 1.0 % Neutrophils # (Auto) 5.8 TH/MM3 Lymphocytes # (Auto) 1.5 TH/MM3 Monocytes # (Auto) 0.5 TH/MM3 Eosinophils # (Auto) 0.1 TH/MM3 Basophils # (Auto) 0.1 TH/MM3 CBC Comment DIFF FINAL Differential Comment Sodium Level 143 MEQ/L Potassium Level 3.4 MEQ/L Chloride Level 109 MEQ/L Carbon Dioxide Level 26.0 MEQ/L Anion Gap 8 MEQ/L Blood Urea Nitrogen 10 MG/DL Creatinine 0.75 MG/DL Estimat Glomerular Filtration 109 ML/MIN Rate Random Glucose 76 MG/DL Calcium Level 8.3 MG/DL Ethyl Alcohol Level 431 MG/DL MDM Medical Decision Making Medical Screen Exam Complete: Yes Emergency Medical Condition: Yes Medical Record Reviewed: Yes Differential Diagnosis Alcohol intoxication, malingering, overdose Narrative Course I have reviewed the patient's electronic medical record. Patient is a very frequent visitor to the ER. His been here 7 times in the last 7 days IV placed I gave him 1 L normal saline IV bolus CBC is normal Metabolic profile is normal Alcohol level is 431 Patient is intoxicated. He is given time to sober up. When he can properly walk and talk he'll be stable for outpatient follow-up. I recommended [facility] alcohol rehabilitation services but he shows no interest in stopping drinking Diagnosis Primary Impression: Alcohol intoxication Qualified Code: F10.120 - Alcohol intoxication, uncomplicated Additional Impression: Alcohol abuse Additional Instructions: The patient was advised to follow up with their physician and return if they worsen. Recommending [facility] alcohol rehabilitation services Med/Other Pt SpecificInfo: Other Scripts No Active Prescriptions or Reported Meds Disposition: 01 DISCHARGE HOME Condition: Stable Daren Griffin MD Feb 24, 2017 14:01
[2017-02-24 15:08] LABS: AUTOMATED NEUTROPHIL # 5.8 TH/MM3 (1.8-7.7); BASOPHIL # 0.1 TH/MM3 (0-0.2); EOSINOPHIL # 0.1 TH/MM3 (0-0.4); EOSINOPHIL % 1.6 % (0.0-4.0); HEMATOCRIT 34.8 % (39.0-51.0); HEMO FLAGS DIFF FINAL; LYMPH % 18.6 % (9.0-44.0); LYMPHOCYTE # 1.5 TH/MM3 (1.0-4.8); MEAN CELL VOLUME 91.4 FL (80.0-100.0); NEUT % 72.8 % (16.0-70.0); PLATELET COUNT 251 TH/MM3 (150-450)
[2017-02-24 15:36] LABS: POTASSIUM 3.4 MEQ/L (3.5-5.1)
[2017-02-25 06:00] VITALS: BP 150/76
== END 2017-02-25 06:00 | disposition home or self-care (01) ==
LOC: NEPC 12:39 → NEDAMB 02-25 06:00
DX: F10.120 Alcohol abuse with intoxication, uncomplicated (principal); Y90.8 Blood alcohol level of 240 mg/100 ml or more
CPT/HCPCS: 80048; 80307; 85025; 96360; 96361; 99284; J7030

== ENCOUNTER 2017-02-27 22:23 | Emergency (ER) | payer SELFPAY ==
[~2017-02-27] VITALS: Ht 182.9 cm; Wt 80.0 kg
[2017-02-27 22:31] VITALS: BP 134/86; PULSE 92; RESP 18; TEMP 97.2; O2SAT 97
--- NOTE | 2017-02-28 00:21 | PD ---
HPI . Alcohol intoxication Chief Complaint: Alcohol/Drug Intoxication Time Seen by Provider: 22:49 Travel History International Travel<30 days: No Contact w/Intl Traveler<30days: No History of Present Illness HPI Patient is brought in as a T[place]'s act with alcohol intoxication. The patient has no complaints. PFSH Past Medical History Anemia: Yes Autoimmune Disease: No Depression: Yes (WITH SUICIDAL IDEATIONS in past) Cancer: No Cardiovascular Problems: Yes Diabetes: No Diminished Hearing: No Gastrointestinal Disorders: Yes (GI BLEED) Genitourinary: No Hiatal Hernia: Yes (SURGERY 1978) Hypertension: Yes Immune Disorder: No Implanted Vascular Access Dvce: No Musculoskeletal: No Neurologic: Yes Psychiatric: No Reproductive: No Respiratory: No Immunizations Current: Yes Seizures: Yes (ALCOHOL RELATED) Past Surgical History Other Surgery: Yes (HIATAL HERNIA 1978) Social History Alcohol Use: Yes Tobacco Use: No Substance Use: No Allergies-Medications (Allergen,Severity, Reaction): Coded Allergies: No Known Allergies (Verified , 02/22/17) Reported Meds & Prescriptions Reported Meds & Active Scripts Active No Active Prescriptions or Reported Medications Review of Systems ROS Limitations: Intoxication Physical Exam Narrative GENERAL: Awake and alert and in no acute distress. He is intoxicated. SKIN: Warm and dry. HEAD: Atraumatic. Normocephalic. EYES: Pupils equal and round. Extraocular movements are intact. NECK: Trachea midline. Neck is supple. CARDIOVASCULAR: Regular rate and rhythm. RESPIRATORY: No accessory muscle use. MUSCULOSKELETAL: No obvious deformities. No edema. NEUROLOGICAL: Awake and alert. No obvious cranial nerve deficits. Motor grossly within normal limits. Normal speech. PSYCHIATRIC: Substance abuse. Poor judgment. Data Data Last Documented VS Vital Signs Date Time Temp Pulse Resp B/P Pulse Ox O2 Delivery O2 Flow Rate FiO2 02/27/17 22:31 97.2 92 18 134/86 97 Room Air Orders Alcohol (Ethanol) (02/27/17 22:49) MDM Medical Decision Making Medical Screen Exam Complete: Yes Emergency Medical Condition: Yes Differential Diagnosis Differential diagnosis of altered mental status includes but is not limited to infection, electrolyte abnormality, neurological event, intoxication Narrative Course Patient presents to us under the [place] Act for public intoxication. He will be allowed to sober up and will then be discharged. Diagnosis Primary Impression: Alcohol abuse Additional Impression: Alcohol intoxication Qualified Code: F10.120 - Alcohol intoxication, uncomplicated Scripts No Active Prescriptions or Reported Meds Disposition: 01 DISCHARGE HOME Condition: Stable Valorie Carnes MD February 28, 2017 00:20
[2017-02-28 06:19] VITALS: BP 145/89; PULSE 77; RESP 18; O2SAT 96
== END 2017-02-28 06:57 | disposition home or self-care (01) ==
LOC: NEPD 22:23
DX: F10.120 Alcohol abuse with intoxication, uncomplicated (principal); I10 Essential (primary) hypertension; Y90.8 Blood alcohol level of 240 mg/100 ml or more
CPT/HCPCS: 80307; 99284

== ENCOUNTER 2017-02-28 17:05 | Emergency (ER) | payer SELFPAY ==
[~2017-02-28] VITALS: Ht 182.9 cm; Wt 77.0 kg
[2017-02-28 17:15] VITALS: BP 112/73; PULSE 91; RESP 22; O2SAT 95
[2017-02-28] MEDS ORDERED: SODIUM CHLOR 0.9% 1000 ML INJ 1,000 ML IV SCH (17:36)
[2017-02-28] MEDS ORDERED: THIAMINE INJ 100 MG in SODIUM CHLORIDE 0.9% INJ 100 ML IV ONE (17:45)
[2017-02-28 18:00] LABS: AUTOMATED NEUTROPHIL # 3.7 TH/MM3 (1.8-7.7); BASOPHIL % 0.5 % (0.0-2.0); EOSINOPHIL # 0.1 TH/MM3 (0-0.4); EOSINOPHIL % 2.4 % (0.0-4.0); HEMATOCRIT 35.3 % (39.0-51.0); HEMO FLAGS DIFF FINAL; LYMPH % 25.4 % (9.0-44.0); LYMPHOCYTE # 1.5 TH/MM3 (1.0-4.8); MEAN CELL VOLUME 92.8 FL (80.0-100.0); MEAN CORPUSCULAR HEMOGLOBIN 30.4 PG (27.0-34.0); MEAN CORPUSCULAR HGB CONC 32.8 % (32.0-36.0); MONO % 6.6 % (0.0-8.0); NEUT % 65.1 % (16.0-70.0); PLATELET COUNT 224 TH/MM3 (150-450); RED BLOOD COUNT 3.81 MIL/MM3 (4.50-5.90); RED CELL DISTRIBUTION WIDTH 17.2 % (11.6-17.2); WHITE BLOOD COUNT 5.7 TH/MM3 (4.0-11.0)
--- NOTE | 2017-02-28 18:10 | PD ---
HPI Chief Complaint: Psychiatric Symptoms Time Seen by Provider: 18:07 Travel History International Travel<30 days: No Contact w/Intl Traveler<30days: No Traveled to known affect area: No History of Present Illness HPI 56-year-old male to presents to the ED for evaluation of Rojas act. Patient was Rojas acted by police after apparently he made suicidal threats. Patient apparently was found on the street "passed out" per Rojas act on the street. No signs of fall. Patient does state that he's been drinking a lot. Patient is a known alcoholic and has been here multiple times for same last and been here yesterday. Patient states having some back pain from an old injury but otherwise no complaints. Patient for the most part during my examination was sleeping in no sign of acute distress. He does smell heavily of alcohol. He denies any homicidal ideation to me. He denies any chest pain or shortness of breath. No other injuries. He denies any drug abuse other than alcohol. Symptoms appear to be chronic. Unclear precipitant of the suicidal ideation. History is limited because of intoxication. PFSH Past Medical History Anemia: Yes Autoimmune Disease: No Depression: Yes (WITH SUICIDAL IDEATIONS in past) Cancer: No Cardiovascular Problems: Yes Diabetes: No Diminished Hearing: No Gastrointestinal Disorders: Yes (GI BLEED) Genitourinary: No Hiatal Hernia: Yes (SURGERY 1978) Hypertension: Yes Immune Disorder: No Implanted Vascular Access Dvce: No Musculoskeletal: No Neurologic: Yes Psychiatric: No Reproductive: No Respiratory: No Immunizations Current: Yes Seizures: Yes (ALCOHOL RELATED) ?: Not Past Surgical History Other Surgery: Yes (HIATAL HERNIA 1978) Social History Alcohol Use: Yes Tobacco Use: No Substance Use: No Allergies-Medications (Allergen,Severity, Reaction): Coded Allergies: No Known Allergies (Verified , 02/28/17) Reported Meds & Prescriptions Reported Meds & Active Scripts Active No Active Prescriptions or Reported Medications Review of Systems ROS Limitations: Intoxication Except as stated in HPI: all other systems reviewed are Neg Physical Exam Exam Limitations: Intoxication Narrative GENERAL: SKIN: Warm and dry. HEAD: Atraumatic. Normocephalic. EYES: Pupils equal and round. No scleral icterus. No injection or drainage. ENT: No nasal bleeding or discharge. Mucous membranes pink and moist. Tongue is midline. No uvula deviation. NECK: Trachea midline. No JVD. CARDIOVASCULAR: Regular rate and rhythm. No murmurs, S3, S4. RESPIRATORY: No accessory muscle use. Clear to auscultation. Breath sounds equal bilaterally. GASTROINTESTINAL: Abdomen soft, non-tender, nondistended. Hepatic and splenic margins not palpable. MUSCULOSKELETAL: Extremities without clubbing, cyanosis, or edema. No obvious deformities. Full range of motion of the upper and lower extremities bilaterally. 2+ pulses bilaterally. NEUROLOGICAL: Awake and alert. No obvious cranial nerve deficits. Motor grossly within normal limits. Five out of 5 muscle strength in the arms and legs. Normal speech. PSYCHIATRIC: Intoxicated mood and affect; insight and judgment normal. Data Data Last Documented VS Vital Signs Date Time Temp Pulse Resp B/P Pulse Ox O2 Delivery O2 Flow Rate FiO2 02/28/17 17:15 91 22 112/73 95 Orders Complete Blood Count With Diff (02/28/17 17:36) Comprehensive Metabolic Panel (02/28/17 17:36) Iv Access Insert/Monitor (02/28/17 17:36) Psych Screen (02/28/17 17:36) Drug Screen, Random Urine (02/28/17 17:36) Alcohol (Ethanol) (02/28/17 17:36) Salicylates (Aspirin) (02/28/17 17:36) Tylenol (Acetaminophen) (02/28/17 17:36) Sodium Chlor 0.9% 1000 Ml Inj (Ns 1000 M (02/28/17 17:36) Thiamine Inj (Thiamine Inj) (02/28/17 17:45) Potassium Chloride Eff (K-Lyte Cl Eff) (02/28/17 18:45) Labs Laboratory Tests Test 02/28/17 17:43 White Blood Count 5.7 TH/MM3 Red Blood Count 3.81 MIL/MM3 Hemoglobin 11.6 GM/DL Hematocrit 35.3 % Mean Corpuscular Volume 92.8 FL Mean Corpuscular Hemoglobin 30.4 PG Mean Corpuscular Hemoglobin 32.8 % Concent Red Cell Distribution Width 17.2 % Platelet Count 224 TH/MM3 Mean Platelet Volume 7.0 FL Neutrophils (%) (Auto) 65.1 % Lymphocytes (%) (Auto) 25.4 % Monocytes (%) (Auto) 6.6 % Eosinophils (%) (Auto) 2.4 % Basophils (%) (Auto) 0.5 % Neutrophils # (Auto) 3.7 TH/MM3 Lymphocytes # (Auto) 1.5 TH/MM3 Monocytes # (Auto) 0.4 TH/MM3 Eosinophils # (Auto) 0.1 TH/MM3 Basophils # (Auto) 0.0 TH/MM3 CBC Comment DIFF FINAL Differential Comment Sodium Level 140 MEQ/L Potassium Level 3.2 MEQ/L Chloride Level 104 MEQ/L Carbon Dioxide Level 24.5 MEQ/L Anion Gap 12 MEQ/L Blood Urea Nitrogen 4 MG/DL Creatinine 0.80 MG/DL Estimat Glomerular Filtration 101 ML/MIN Rate Random Glucose 87 MG/DL Calcium Level 7.8 MG/DL Total Bilirubin 0.3 MG/DL Aspartate Amino Transf 77 U/L (AST/SGOT) Alanine Aminotransferase 52 U/L (ALT/SGPT) Alkaline Phosphatase 130 U/L Total Protein 7.3 GM/DL Albumin 3.5 GM/DL Salicylates Level 4.3 MG/DL Acetaminophen Level LESS THAN 2.0 MCG/ML MDM Medical Decision Making Medical Screen Exam Complete: Yes Emergency Medical Condition: Yes Medical Record Reviewed: Yes Interpretation(s) CBC Diagram 02/28/17 17:43 BMP Diagram 02/28/17 17:43 LFTs WNL Differential Diagnosis Depression versus suicidal ideation versus anxiety versus adjustment disorder versus mood disorder versus bipolar disorder versus schizophrenia versus paranoid disorder versus psychosis versus substance abuse versus alcohol abuse versus alcohol induced psychosis versus homicidality addition versus cutting versus personality disorder Narrative Course 56-year-old male that presents to the ED for evaluation of psych. Patient was properly examined and was found to have signs and symptoms consistent appears to be psychiatric illness. No sign of acute medical distress. Patient is a known alcoholic and has been here multiple times with similar complaints in the past. Labs were drawn. Patient was given 1 dose of IV fluids as well as thiamine. Patient will be medically clear. Okay to be seen by psych. Mental health screening was discussed with the patient. Diagnosis Primary Impression: Alcohol-induced mood disorder Scripts No Active Prescriptions or Reported Meds Swapnil Darnell February 28, 2017 18:10
[2017-02-28 18:21] LABS: ANION GAP 12 MEQ/L (5-15)
[2017-02-28 18:24] LABS: ACETAMINOPHEN LESS THAN 2.0 MCG/ML (10.0-30.0); ALKALINE PHOSPHATASE 130 U/L (45-117); ALT (GPT) 52 U/L (12-78); AST (GOT) 77 U/L (15-37); BICARBONATE 24.5 MEQ/L (21.0-32.0); BLOOD UREA NITROGEN 4 MG/DL (7-18); CHLORIDE 104 MEQ/L (98-107); GLOMERULAR FILTRATION RATE 101 ML/MIN (>89); POTASSIUM 3.2 MEQ/L (3.5-5.1); SODIUM (NA) 140 MEQ/L (136-145); TOTAL BILIRUBIN ADULT 0.3 MG/DL (0.2-1.0)
[2017-02-28] MEDS ORDERED: POTASSIUM CHLORIDE 25 MEQ EFFERVESCENT TAB PO ONE (18:45)
[2017-02-28 20:00] VITALS: BP 118/68; PULSE 87; RESP 20; O2SAT 94
[2017-02-28 20:38] LABS: AMPHETAMINE, URINE NEG (NEG); BARBITURATES, URINE NEG (NEG); COCAINE, URINE NEG (NEG)
--- NOTE | 2017-03-01 10:02 | PD ---
History of Present Illness Chief Complaint: Psychiatric Symptoms Time Seen by Provider: 09:55 Travel History International Travel<30 Days: No Contact w/Intl Traveler<30days: No Known affected area: No Legal Status Legal Status: Rojas Act Rojas Act Signed By: Chuck Townsend History of Present Illness: History of Present Illness HPI\\ 56-year-old male with history of alcohol dependence who presents to the ED under a BA initiated by [facility] . ED documentation is reviewed and included in this report " Patient was Rojas acted by police after apparently he made suicidal threats. Patient apparently was found on the street "passed out" per Rojas act on the street. No signs of fall. Patient does state that he's been drinking a lot. Patient is a known alcoholic and has been here multiple times for same last and been here yesterday." Patient presented to ED with BAL of 378 and positive toxicology for benzodiazepene. EMR is reviewed. He is well known to [facility] and has had at least 10 visits in the past month for alcohol intoxication. Patient seen in main ed. He is clinically sober now. Speech is clear and logical . He denies any suicidal ideation at this time. States " I want to go to [facility] and the police would not take me there. I need to get in to a treatment center. I am not suicidal or going to hurt anyone else. PFSH Past Medical History Anemia: Yes Autoimmune Disease: No Depression: Yes (WITH SUICIDAL IDEATIONS in past) Cancer: No Cardiovascular Problems: Yes Diabetes: No Diminished Hearing: No Gastrointestinal Disorders: Yes (GI BLEED) Genitourinary: No Hiatal Hernia: Yes (SURGERY 1978) Hypertension: Yes Immune Disorder: No Implanted Vascular Access Dvce: No Musculoskeletal: No Neurologic: Yes Psychiatric: No Reproductive: No Respiratory: No Immunizations Current: Yes Seizures: Yes (ALCOHOL RELATED) Tetanus Vaccination: < 5 Years ?: Not Past Surgical History Other Surgery: Yes (HIATAL HERNIA 1978) Psychiatric History Psychiatric History Hx Psychiatric Treatment: PT DENIES History of Inpatient Treatment: No Guns or firearms in home: No Social History Single male. Owns a home but will be homeless soon. 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 Hx Alcohol Use: Yes Hx Tobacco Use: No Hx Substance Use: No Substance Use Type: Alcohol, Benzos (Valium,Xanax) Hx of Substance Use Treatment: Yes Family Psychiatric History Negative Allergies-Medications (Allergen,Severity, Reaction): Coded Allergies: No Known Allergies (Verified , 02/28/17) Reported Meds & Prescriptions Reported Meds & Active Scripts Active No Active Prescriptions or Reported Medications Review of Systems Except as stated in HPI: all other systems reviewed are Neg Musculoskeletal: COMPLAINS OF: Back pain Exam Alert: Yes [place]: Person (ox4) Mood: Calm Affect: Appropriate Speech: Clear, Logical Eye Contact: Normal Memory Intact: Comment (no impairmetn) Hallucinations: Other (neagtive) Delusions: No Suicidal: Ideation (deneis any) Homicidal: Ideation (deneis any) Insight/Judgement Poor. Poor MDM Medical Decision Making Medical Record Reviewed: Yes Assessment/Plan 56 year old male with history of alcohol dependence who is brought in when he was found intoxicated on the side of the road. At this time the patient is clinically sober and denies any suicidal or homicidal ideation , intent or plan or any acute psychiatric symptomatology. Lift BA as he does not meet criteria. Recommend SMA. Orders Complete Blood Count With Diff (02/28/17 17:36) Comprehensive Metabolic Panel (02/28/17 17:36) Iv Access Insert/Monitor (02/28/17 17:36) Psych Screen (02/28/17 17:36) Drug Screen, Random Urine (02/28/17 17:36) Alcohol (Ethanol) (02/28/17 17:36) Salicylates (Aspirin) (02/28/17 17:36) Tylenol (Acetaminophen) (02/28/17 17:36) Sodium Chlor 0.9% 1000 Ml Inj (Ns 1000 M (02/28/17 17:36) Thiamine Inj (Thiamine Inj) (02/28/17 17:45) Potassium Chloride Eff (K-Lyte Cl Eff) (02/28/17 18:45) Diet Regular Basic (03/01/17 Breakfast) Results Vital Signs Date Time Temp Pulse Resp B/P Pulse Ox O2 Delivery O2 Flow Rate FiO2 03/01/17 07:32 70 02/28/17 20:00 87 20 118/68 94 02/28/17 17:15 91 22 112/73 95 Laboratory Tests Test 02/28/17 02/28/17 17:43 20:10 White Blood Count 5.7 Red Blood Count 3.81 Hemoglobin 11.6 Hematocrit 35.3 Mean Corpuscular Volume 92.8 Mean Corpuscular Hemoglobin 30.4 Mean Corpuscular Hemoglobin 32.8 Concent Red Cell Distribution Width 17.2 Platelet Count 224 Mean Platelet Volume 7.0 Neutrophils (%) (Auto) 65.1 Lymphocytes (%) (Auto) 25.4 Monocytes (%) (Auto) 6.6 Eosinophils (%) (Auto) 2.4 Basophils (%) (Auto) 0.5 Neutrophils # (Auto) 3.7 Lymphocytes # (Auto) 1.5 Monocytes # (Auto) 0.4 Eosinophils # (Auto) 0.1 Basophils # (Auto) 0.0 CBC Comment DIFF FINAL Differential Comment Sodium Level 140 Potassium Level 3.2 Chloride Level 104 Carbon Dioxide Level 24.5 Anion Gap 12 Blood Urea Nitrogen 4 Creatinine 0.80 Estimat Glomerular Filtration 101 Rate Random Glucose 87 Calcium Level 7.8 Total Bilirubin 0.3 Aspartate Amino Transf 77 (AST/SGOT) Alanine Aminotransferase 52 (ALT/SGPT) Alkaline Phosphatase 130 Total Protein 7.3 Albumin 3.5 Salicylates Level 4.3 Acetaminophen Level LESS THAN 2.0 Ethyl Alcohol Level 378 Urine Opiates Screen NEG Urine Barbiturates Screen NEG Urine Amphetamines Screen NEG Urine Benzodiazepines Screen POS Urine Cocaine Screen NEG Urine Cannabinoids Screen NEG Diagnosis Primary Impression: Alcohol dependence with uncomplicated intoxication Ruled Out: Alcohol-induced mood disorder Psychiatrically Cleared: Yes Med/ Other Pt Specific Info: No Meds Exist/No RX given Prescriptions No Active Prescriptions or Reported Meds Disposition: 01 DISCHARGE HOME Condition: Stable Krystal Phoenix ALIS March 01, 2017 10:02
== END 2017-03-01 14:36 | disposition home or self-care (01) ==
LOC: NEPD 17:05
DX: F10.220 Alcohol dependence with intoxication, uncomplicated (principal); D64.9 Anemia, unspecified; I10 Essential (primary) hypertension
CPT/HCPCS: 80053; 85025; 96365; 99283; J3411; J7030; 80307

== ENCOUNTER 2017-03-12 21:47 | Emergency (ER) | payer SELFPAY ==
[~2017-03-12] VITALS: Ht 182.9 cm; Wt 100.0 kg
[2017-03-12 21:56] VITALS: BP 121/79; PULSE 89; RESP 16; TEMP 98; O2SAT 97
[2017-03-12] MEDS ORDERED: LORazepam 2 MG/ML VIAL IV PUSH PRN ×4 (22:30)
[2017-03-12] MEDS ORDERED: ONDANSETRON HCL 4 MG/2 ML VIAL IV PUSH PRN (22:30)
[2017-03-12] MEDS ORDERED: FLUMAZENIL 0.5 MG/5 ML VIAL IV PUSH PRN (22:30)
[2017-03-12] MEDS ORDERED: LORazepam 1 MG TAB PO PRN (22:30)
[2017-03-12] MEDS ORDERED: LORazepam 2 MG TAB PO PRN (22:30)
[2017-03-12 22:31] LABS: AMPHETAMINE, URINE NEG (NEG); BARBITURATES, URINE NEG (NEG); COCAINE, URINE NEG (NEG)
--- NOTE | 2017-03-12 22:40 | PD ---
HPI Chief Complaint: Psychiatric Symptoms Time Seen by Provider: 22:37 Travel History International Travel<30 days: No Contact w/Intl Traveler<30days: No Traveled to known affect area: No History of Present Illness HPI 56-year-old male that presents to the ED via ambulance for evaluation of Rojas act. Patient was Rojas acted by police after apparently he made suicidal statements. Patient has a chronic history of alcohol and was found to be intoxicated by police as well. Patient states that he drinks because he is depressed. Per patient he will like someone to help him with his alcohol issue. He is also homeless. He denies any suicidal plan but states that he feels suicidal. Denies any homicidal ideation. No drugs. Per patient he has not fallen or any injuries recently. He does have a history of chronic back issues. No allergies to medication. Patient is well known to staff as he does come frequently for similar. He currently smells of alcohol and is clearly intoxicated. PFSH Past Medical History Anemia: Yes Autoimmune Disease: No Depression: Yes (WITH SUICIDAL IDEATIONS in past) Cancer: No Cardiovascular Problems: Yes Diabetes: No Diminished Hearing: No Gastrointestinal Disorders: Yes (GI BLEED) Genitourinary: No Hiatal Hernia: Yes (SURGERY 1978) Hypertension: Yes Immune Disorder: No Implanted Vascular Access Dvce: No Musculoskeletal: No Neurologic: Yes Psychiatric: No Reproductive: No Respiratory: No Immunizations Current: Yes Seizures: Yes (ALCOHOL RELATED) Tetanus Vaccination: < 5 Years Influenza Vaccination: No Past Surgical History Other Surgery: Yes (HIATAL HERNIA 1978) Social History Alcohol Use: Yes Tobacco Use: No Substance Use: No Allergies-Medications (Allergen,Severity, Reaction): Coded Allergies: No Known Allergies (Verified , 03/12/17) Reported Meds & Prescriptions Reported Meds & Active Scripts Active No Active Prescriptions or Reported Medications Review of Systems ROS Limitations: Intoxication Except as stated in HPI: all other systems reviewed are Neg Physical Exam Exam Limitations: Intoxication Narrative GENERAL: SKIN: Warm and dry. HEAD: Atraumatic. Normocephalic. EYES: Pupils equal and round. No scleral icterus. No injection or drainage. ENT: No nasal bleeding or discharge. Mucous membranes pink and moist. Tongue is midline. No uvula deviation. NECK: Trachea midline. No JVD. CARDIOVASCULAR: Regular rate and rhythm. No murmurs, S3, S4. RESPIRATORY: No accessory muscle use. Clear to auscultation. Breath sounds equal bilaterally. GASTROINTESTINAL: Abdomen soft, non-tender, nondistended. Hepatic and splenic margins not palpable. MUSCULOSKELETAL: Extremities without clubbing, cyanosis, or edema. No obvious deformities. Full range of motion of the upper and lower extremities bilaterally. 2+ pulses bilaterally. NEUROLOGICAL: Awake and alert. No obvious cranial nerve deficits. Motor grossly within normal limits. Five out of 5 muscle strength in the arms and legs. Normal speech. PSYCHIATRIC: Intoxicated mood and affect; insight and judgment normal. Data Data Last Documented VS Vital Signs Date Time Temp Pulse Resp B/P Pulse Ox O2 Delivery O2 Flow Rate FiO2 03/12/17 21:59 16 03/12/17 21:56 98.0 89 121/79 97 Orders Complete Blood Count With Diff (03/12/17 21:53) Comprehensive Metabolic Panel (03/12/17 21:53) Psych Screen (03/12/17 21:53) Drug Screen, Random Urine (03/12/17 21:53) Alcohol (Ethanol) (03/12/17 21:53) Alcohol Withdrawal Asmt-Ciwa ONCE (03/12/17 22:21) Ondansetron Inj (Zofran Inj) (03/12/17 22:30) Flumazenil Inj (Romazicon Inj) (03/12/17 22:30) Lorazepam (Ativan) (03/12/17 22:30) Lorazepam Inj (Ativan Inj) (03/12/17 22:30) Lorazepam (Ativan) (03/12/17 22:30) Lorazepam Inj (Ativan Inj) (03/12/17 22:30) Lorazepam Inj (Ativan Inj) (03/12/17 22:30) Lorazepam Inj (Ativan Inj) (03/12/17 22:30) Labs Laboratory Tests Test 03/12/17 22:00 Urine Opiates Screen NEG Urine Barbiturates Screen NEG Urine Amphetamines Screen NEG Urine Benzodiazepines Screen NEG Urine Cocaine Screen NEG Urine Cannabinoids Screen NEG MDM Medical Decision Making Medical Screen Exam Complete: Yes Emergency Medical Condition: Yes Medical Record Reviewed: Yes Interpretation(s) Tox positive for alcohol negative otherwise. Differential Diagnosis Depression versus suicidal ideation versus anxiety versus adjustment disorder versus mood disorder versus bipolar disorder versus schizophrenia versus paranoid disorder versus psychosis versus substance abuse versus alcohol abuse versus alcohol induced psychosis versus homicidality addition versus cutting versus personality disorder Narrative Course 56-year-old male that presents to the ED for evaluation of Rojas act. Patient was properly examined and was found to have signs and symptoms consistent with appears to be psychiatric illness. No sign of acute medical distress. Patient does appear to be heavily intoxicated. This time and recommended labs for medical clearance. CIWA protocol was ordered by me to prevent withdrawal seizures. This was notified to the nurse. It will be medically clear pending labs. Okay to be seen by psych. Mental health screening was discussed with the patient. Diagnosis Primary Impression: Alcohol-induced mood disorder Scripts No Active Prescriptions or Reported Meds Swapnil Darnell March 12, 2017 22:40
[2017-03-12 23:08] LABS: AUTOMATED NEUTROPHIL # 4.3 TH/MM3 (1.8-7.7); BASOPHIL % 0.6 % (0.0-2.0); EOSINOPHIL # 0.1 TH/MM3 (0-0.4); EOSINOPHIL % 1.9 % (0.0-4.0); HEMATOCRIT 35.4 % (39.0-51.0); HEMO FLAGS DIFF FINAL; LYMPH % 23.9 % (9.0-44.0); LYMPHOCYTE # 1.6 TH/MM3 (1.0-4.8); MEAN CELL VOLUME 92.5 FL (80.0-100.0); MEAN CORPUSCULAR HEMOGLOBIN 31.8 PG (27.0-34.0); MEAN CORPUSCULAR HGB CONC 34.3 % (32.0-36.0); MONO % 8.3 % (0.0-8.0); NEUT % 65.3 % (16.0-70.0); PLATELET COUNT 237 TH/MM3 (150-450); RED BLOOD COUNT 3.82 MIL/MM3 (4.50-5.90); RED CELL DISTRIBUTION WIDTH 16.5 % (11.6-17.2); WHITE BLOOD COUNT 6.6 TH/MM3 (4.0-11.0)
[2017-03-12 23:21] LABS: ALT (GPT) 80 U/L (12-78); ANION GAP 10 MEQ/L (5-15); AST (GOT) 145 U/L (15-37); BICARBONATE 23.1 MEQ/L (21.0-32.0); BLOOD UREA NITROGEN 6 MG/DL (7-18); CHLORIDE 108 MEQ/L (98-107); GLOMERULAR FILTRATION RATE 119 ML/MIN (>89); POTASSIUM 3.5 MEQ/L (3.5-5.1); SODIUM (NA) 141 MEQ/L (136-145)
[2017-03-12 23:25] LABS: ALKALINE PHOSPHATASE 161 U/L (45-117); TOTAL BILIRUBIN ADULT 0.3 MG/DL (0.2-1.0)
[2017-03-13 10:42] VITALS: BP 125/69; PULSE 96; RESP 16; TEMP 99.2; O2SAT 98
--- NOTE | 2017-03-13 11:18 | PD.CONS ---
Provisional Diagnosis Admission Date 03/12/17 [place]. Adjustment disorder with mixed issues of behavior and emotions of 43.25 alcohol dependency with intoxication 10.220 History of Present Illness Service Psychiatry Consult Requested By EDMD Reason for Consult Bob cordero Primary Care Physician No Primary Care Physician HPI Patient is a 56-year-old white male well-known post multiple prior contacts in the E comes here under Rojas act by the [place] [employer] dated 03/12 at 91 9 PM's that document reviewed and agreed with patient stating that patient was found passed out on the side of the road stating that he drinks heavily to his depression saying he wanted to kill herself because he has nobody that taking his home stating he wants to fall asleep and not wake up. Patient seen screen in the ED urine toxicology 368. Of interest he should nurse had 10-11 elevated blood alcohol levels documented in our ED since being of the year ranging from the mid 200s to the high 400s. At this time patient alert oriented calm cooperative acknowledging his alcoholism. Stating he is no place to stay right now due to foreclosure on what appears to be is mother's house. He denies suicidality homicidality voices or visions. States he wishes to go to a detox/rehabilitation program. [facility] and is willing to go to that facility. For assessment. At this time patient does not meet Bob criteria will lift Bob act. Is okay by psych for discharge medically cleared and stable no Rx by me strongly referral to [facility] for further assessment referral to [facility] for involuntary outpatient substance abuse assessment Review of Systems Constitutional: DENIES: Diaphoretic episodes, Fatigue, Fever, Weight gain, Weight loss, Chills, Dizziness, Change in appetite, Night Sweats Endocrine: DENIES: Heat/cold intolerance, Polydipsia, Polyuria, Polyphagia Eyes: DENIES: Blurred vision, Diplopia, Eye inflammation, Eye pain, Vision loss , Photosensitivity, Double Vision Ears, nose, mouth, throat: DENIES: Tinnitus, Hearing loss, Vertigo, Nasal discharge, Oral lesions, Throat pain, Hoarseness, Ear Pain, Running Nose, Epistaxis, Sinus Pain, Toothache, Odynophagia Respiratory: DENIES: Apneas, Cough, Snoring, Wheezing, Hemoptysis, Sputum production, Shortness of breath Cardiovascular: DENIES: Chest pain, Palpitations, Syncope, Dyspnea on Exertion , PND, Lower Extremity Edema, Orthopnea, Claudication Gastrointestinal: DENIES: Abdominal pain, Black stools, Bloody stools, Constipation, Diarrhea, Nausea, Vomiting, Difficulty Swallowing, Anorexia Genitourinary: DENIES: Sexual dysfunction, Urinary frequency, Urinary incontinence, Urgency, Hematuria, Dysuria, Nocturia, Penile Discharge, Testicular Pain, Testicular Swelling Musculoskeletal: DENIES: Joint pain, Muscle aches, Stiffness, Joint Swelling, Back pain, Neck pain Integumentary: DENIES: Abnormal pigmentation, Nail changes, Pruritus, Rash Hematologic/lymphatic: DENIES: Bruising, Lymphadenopathy Immunologic/allergic: DENIES: Eczema, Urticaria Neurologic: DENIES: Abnormal gait, Headache, Localized weakness, Paresthesias, Seizures, Speech Problems, Tremor, Poor Balance Psychiatric: COMPLAINS OF: Anxiety (mild), Depression, DENIES: Confusion, Mood changes, Hallucinations, Agitation, Suicidal Ideation, Homicidal Ideation, Delusions Past Family Social History Coded Allergies: No Known Allergies (Verified , 03/12/17) Past Medical History Unknown at this time No Active Prescriptions or Reported Meds Current Medications Medications (Trade) Dose Ordered Sig/Heaven Route Start Time Stop Time Status Last Admin (Zofran Inj) 4 mg Q8H PRN IV PUSH 03/12/17 22:30 (Romazicon Inj) 0.2 mg Q1M PRN IV PUSH 03/12/17 22:30 (Ativan) 1 mg Q4H PRN PO 03/12/17 22:30 03/13/17 10:44 (Ativan Inj) 1 mg Q4H PRN IV PUSH 03/12/17 22:30 (Ativan) 2 mg Q2H PRN PO 03/12/17 22:30 (Ativan Inj) 2 mg Q2H PRN IV PUSH 03/12/17 22:30 (Ativan Inj) 2 mg Q1H PRN IV PUSH 03/12/17 22:30 (Ativan Inj) 2 mg Q15M PRN IV PUSH 03/12/17 22:30 Family History Unknown at this time Social History Patient appears to be homeless, alcohol dependency/intoxication Patient's Strengths (min. 2) Patient verbal labile axis health care Physical Exam Patient seen screened in ED and medically cleared exam reviewed and agreed with Vital Signs Vital Signs Date Time Temp Pulse Resp B/P Pulse Ox O2 Delivery O2 Flow Rate FiO2 03/13/17 10:42 99.2 96 16 125/69 98 Room Air Mental Status Examination Alert oriented somewhat disheveled white male appears stated age calm cooperative with fair eye contact Appearance Disheveled Speech: Unremarkable Orientation: x3 Memory: Unremarkable Thought Process: Logical, Linear Language Fair Fund of Knowledge Fair Hallucination Type: None (denies) Attention and Concentration: Other (there) Suicidal Ideation: No (denies) Previous Suicide Attempts: No Homicidal Ideation: No (denies) Previous Homicide Attempts: No (denies) Insight: Poor Judgment: Poor Affect: Other (decreased range intensity) Mood: Euthymic (to mildly dysphoric and mildly irritable) Motor Activity: Normal gait Assessment & Plan Problem List: (1) Alcohol dependence with uncomplicated intoxication ICD Code: F10.220 (2) Adjustment disorder with mixed disturbance of emotions and conduct ICD Code: F43.25 Assessment & Plan Estimated LOS: days patient does not meet Rojas criteria will lift Rojas act. She okay by psych for discharge. No Rx by me. Strongly referral [facility] for outpatient voluntary substance abuse assessment and also processing through the detox facility Discharge Planning See above Request HC Surrog/Guard Advoc?: No Nader Molina MD March 13, 2017 11:18
== END 2017-03-13 11:30 | disposition home or self-care (01) ==
LOC: NEPJ 21:47
DX: F10.94 Alcohol use, unspecified with alcohol-induced mood disorder (principal); F10.229 Alcohol dependence with intoxication, unspecified; F43.25 Adjustment disorder with mixed disturbance of emotions and conduct; F32.9 Major depressive disorder, single episode, unspecified; I10 Essential (primary) hypertension; Z59.0 Homelessness; Y90.9 Presence of alcohol in blood, level not specified
CPT/HCPCS: 80053; 80307; 85025; 99283

== ENCOUNTER 2017-03-25 17:55 | Emergency (ER) | payer OTHER ==
[~2017-03-25] VITALS: Ht 182.9 cm; Wt 75.0 kg
[2017-03-25 18:04] VITALS: BP 126/91; PULSE 88; RESP 20; TEMP 98.5; O2SAT 95
[2017-03-25] MEDS ORDERED: SODIUM CHLOR 0.9% 1000 ML INJ 1,000 ML IV SCH (18:04)
[2017-03-25] MEDS ORDERED: SODIUM CHLORIDE 0.9% FLUSH 10 ML FLUSH IVF PRN (18:15)
[2017-03-25] MEDS ORDERED: ONDANSETRON HCL 4 MG/2 ML VIAL IVP ONE (18:15)
[2017-03-25] MEDS ORDERED: LORazepam 1 MG TAB PO PRN (18:15)
[2017-03-25] MEDS ORDERED: chlordiazePOXIDE 25 MG CAP PO ONE (18:15)
[2017-03-25] MEDS ORDERED: LORazepam 2 MG/ML VIAL IV PUSH PRN ×3 (18:15)
[2017-03-25] MEDS ORDERED: LORazepam 2 MG TAB PO PRN (18:15)
[2017-03-25] MEDS ORDERED: LORazepam 2 MG/ML VIAL IV ONE (18:15)
--- NOTE | 2017-03-25 18:18 | PD ---
HPI Chief Complaint: Rojas Act Time Seen by Provider: 18:11 Travel History International Travel<30 days: No Contact w/Intl Traveler<30days: No Traveled to known affect area: No History of Present Illness HPI 56-year-old male with long history of EtOH abuse is brought in via police escort under the Rojas act for suicidal ideation. Patient with sutures been drinking Listerine for the alcohol so he wouldn't go into withdrawals. Patient has been here several times in the last month with similar presentation. Patient specifically stated he wanted to stab himself in the chest with a knife to the police. He states he wants to quit drinking and has been trying to get in the [facility] has been unsuccessful up to this point. He complains of pain in both feet, but denies nausea, vomiting, abdominal pain, cough, shortness breath, chest pain, or other symptoms. Patient is unsure when he last ate a real meal. He is cooperative upon arrival. He has no known drug allergies. PFSH Past Medical History Anemia: Yes Autoimmune Disease: No Depression: Yes (WITH SUICIDAL IDEATIONS in past) Cancer: No Cardiovascular Problems: Yes Diabetes: No Diminished Hearing: No Gastrointestinal Disorders: Yes (GI BLEED) Genitourinary: No Hiatal Hernia: Yes (SURGERY 1978) Hypertension: Yes Immune Disorder: No Implanted Vascular Access Dvce: No Musculoskeletal: No Neurologic: Yes Psychiatric: No Reproductive: No Respiratory: No Immunizations Current: Yes Seizures: Yes (ALCOHOL RELATED) Past Surgical History Other Surgery: Yes (HIATAL HERNIA 1978) Social History Alcohol Use: Yes Tobacco Use: No Substance Use: No Allergies-Medications (Allergen,Severity, Reaction): Coded Allergies: No Known Allergies (Verified , 03/25/17) Reported Meds & Prescriptions Reported Meds & Active Scripts Active No Active Prescriptions or Reported Medications Review of Systems ROS Limitations: Intoxication Except as stated in HPI: all other systems reviewed are Neg General / Constitutional: No: Fever Eyes: No: Visual changes HENT: No: Headaches Cardiovascular: No: Chest Pain or Discomfort Respiratory: No: Shortness of Breath Gastrointestinal: No: Abdominal Pain Genitourinary: No: Dysuria Musculoskeletal: No: Pain Skin: No Rash Neurologic: No: Weakness Psychiatric: Positive: Depression, Suicidal Ideations, Substance Abuse, No: Homicidal Ideation Endocrine: No: Polydipsia Hematologic/Lymphatic: No: Easy Bruising Physical Exam Narrative GENERAL: Patient appears disheveled and somewhat dirty but otherwise in no acute distress. SKIN: Warm and dry. No signs of trauma. Normal color. Somewhat decreased turgor. HEAD: Atraumatic. Normocephalic. Nontender. EYES: Pupils equal and round. No scleral icterus. No injection or drainage. ENT: No nasal bleeding or discharge. Mucous membranes pink and moist. Pharynx is clear. Airway is patent. NECK: Trachea midline. Supple and nontender. CARDIOVASCULAR: Regular rate and rhythm. RESPIRATORY: No accessory muscle use. Clear to auscultation. Breath sounds equal bilaterally. GASTROINTESTINAL: Abdomen soft, non-tender, nondistended. Hepatic and splenic margins not palpable. MUSCULOSKELETAL: Extremities without clubbing, cyanosis, or edema. No obvious deformities. NEUROLOGICAL: Awake and alert. No obvious cranial nerve deficits. Motor grossly within normal limits. Five out of 5 muscle strength in the arms and legs. Normal speech. PSYCHIATRIC: Patient is intoxicated and states suicidal ideation. Data Data Last Documented VS Vital Signs Date Time Temp Pulse Resp B/P Pulse Ox O2 Delivery O2 Flow Rate FiO2 03/26/17 11:00 98.1 78 17 118/77 99 Room Air Orders Complete Blood Count With Diff (03/25/17 18:04) Comprehensive Metabolic Panel (03/25/17 18:04) Urinalysis - C+S If Indicated (03/25/17 18:04) Iv Access Insert/Monitor (03/25/17 18:04) Psych Screen (03/25/17 18:04) Sodium Chloride 0.9% Flush (Ns Flush) (03/25/17 18:15) Lorazepam Inj (Ativan Inj) (03/25/17 18:15) Drug Screen, Random Urine (03/25/17 18:04) Alcohol (Ethanol) (03/25/17 18:04) Ondansetron Inj (Zofran Inj) (03/25/17 18:15) Sodium Chlor 0.9% 1000 Ml Inj (Ns 1000 M (03/25/17 18:04) Diet Regular Basic (03/25/17 Dinner) Alcohol Withdrawal Asmt-Ciwa [id number] (03/25/17 18:04) Lorazepam (Ativan) (03/25/17 18:15) Lorazepam Inj (Ativan Inj) (03/25/17 18:15) Lorazepam (Ativan) (03/25/17 18:15) Lorazepam Inj (Ativan Inj) (03/25/17 18:15) Lorazepam Inj (Ativan Inj) (03/25/17 18:15) Lorazepam Inj (Ativan Inj) (03/25/17 18:15) Chlordiazepoxide (Librium) (03/25/17 18:15) Labs Laboratory Tests Test 03/25/17 03/26/17 18:50 00:20 White Blood Count 4.7 TH/MM3 Red Blood Count 4.17 MIL/MM3 Hemoglobin 12.9 GM/DL Hematocrit 39.0 % Mean Corpuscular Volume 93.6 FL Mean Corpuscular Hemoglobin 31.0 PG Mean Corpuscular Hemoglobin 33.2 % Concent Red Cell Distribution Width 16.3 % Platelet Count 279 TH/MM3 Mean Platelet Volume 7.1 FL Neutrophils (%) (Auto) 42.3 % Lymphocytes (%) (Auto) 39.2 % Monocytes (%) (Auto) 11.9 % Eosinophils (%) (Auto) 3.5 % Basophils (%) (Auto) 3.1 % Neutrophils # (Auto) 2.0 TH/MM3 Lymphocytes # (Auto) 1.8 TH/MM3 Monocytes # (Auto) 0.6 TH/MM3 Eosinophils # (Auto) 0.2 TH/MM3 Basophils # (Auto) 0.1 TH/MM3 CBC Comment DIFF FINAL Differential Comment Sodium Level 143 MEQ/L Potassium Level 3.7 MEQ/L Chloride Level 106 MEQ/L Carbon Dioxide Level 25.2 MEQ/L Anion Gap 12 MEQ/L Blood Urea Nitrogen 8 MG/DL Creatinine 0.78 MG/DL Estimat Glomerular Filtration 104 ML/MIN Rate Random Glucose 84 MG/DL Calcium Level 8.1 MG/DL Total Bilirubin 0.3 MG/DL Aspartate Amino Transf 237 U/L (AST/SGOT) Alanine Aminotransferase 142 U/L (ALT/SGPT) Alkaline Phosphatase 200 U/L Total Protein 7.6 GM/DL Albumin 3.8 GM/DL Ethyl Alcohol Level 403 MG/DL Urine Color YELLOW Urine Turbidity CLEAR Urine pH 6.0 Urine Specific [place] 1.023 Urine Protein 30 mg/dL Urine Glucose (UA) NEG mg/dL Urine Ketones NEG mg/dL Urine Occult Blood TRACE Urine Nitrite NEG Urine Bilirubin NEG Urine Urobilinogen 2.0 MG/DL Urine Leukocyte Esterase NEG Urine RBC 11 /hpf Urine WBC 2 /hpf Urine Bacteria RARE /hpf Urine Hyaline Casts 1 /lpf Urine Mucus FEW /lpf Microscopic Urinalysis Comment CULT NOT INDICATED Urine Opiates Screen NEG Urine Barbiturates Screen NEG Urine Amphetamines Screen NEG Urine Benzodiazepines Screen POS Urine Cocaine Screen NEG Urine Cannabinoids Screen NEG MDM Medical Decision Making Medical Screen Exam Complete: Yes Emergency Medical Condition: Yes Medical Record Reviewed: Yes Differential Diagnosis EtOH intoxication. Suicidal ideation. Rojas act. Mood disorder. Narrative Course Patient is medically stable and cooperative at time of exam. Labs ordered per protocol for psychiatric evaluation. IV access is obtained patient is given 1000 mL's normal saline bolus. Patient is given 1 mg of lorazepam IV. Patient is given 25 mg Librium by mouth. Patient is given 4 mg Zofran IV. A meal is ordered for the patient. CIWA protocol is ordered for the patient. CBC shows a hemoglobin of 12.9 with a hematocrit of 39 otherwise no acute findings. CMP unremarkable except for calcium of 8.1, AST of 237, ALP of 142, and alkaline phosphatase of 200. Liver functions and alkaline phosphatase are somewhat higher than previous visit on 03/12/2017. Serum alcohol level is 403. Patient is medically cleared for evaluation the morning. Psychiatric evaluation is ordered. Diagnosis Primary Impression: Alcohol-induced mood disorder Additional Impression: Medical clearance for psychiatric admission Scripts No Active Prescriptions or Reported Meds Condition: Stable Padilla Castellanos March 25, 2017 18:18
[2017-03-25 19:06] LABS: BASOPHIL # 0.1 TH/MM3 (0-0.2); BASOPHIL % 3.1 % (0.0-2.0); EOSINOPHIL # 0.2 TH/MM3 (0-0.4); EOSINOPHIL % 3.5 % (0.0-4.0); HEMO FLAGS DIFF FINAL; LYMPH % 39.2 % (9.0-44.0); LYMPHOCYTE # 1.8 TH/MM3 (1.0-4.8); MEAN CELL VOLUME 93.6 FL (80.0-100.0); MEAN CORPUSCULAR HGB CONC 33.2 % (32.0-36.0); MONO % 11.9 % (0.0-8.0); NEUT % 42.3 % (16.0-70.0); PLATELET COUNT 279 TH/MM3 (150-450); RED BLOOD COUNT 4.17 MIL/MM3 (4.50-5.90); RED CELL DISTRIBUTION WIDTH 16.3 % (11.6-17.2); WHITE BLOOD COUNT 4.7 TH/MM3 (4.0-11.0)
[2017-03-25 19:17] LABS: ANION GAP 12 MEQ/L (5-15)
[2017-03-25 19:22] LABS: ALKALINE PHOSPHATASE 200 U/L (45-117); ALT (GPT) 142 U/L (12-78); AST (GOT) 237 U/L (15-37); BICARBONATE 25.2 MEQ/L (21.0-32.0); BLOOD UREA NITROGEN 8 MG/DL (7-18); CHLORIDE 106 MEQ/L (98-107); GLOMERULAR FILTRATION RATE 104 ML/MIN (>89); POTASSIUM 3.7 MEQ/L (3.5-5.1); SODIUM (NA) 143 MEQ/L (136-145); TOTAL BILIRUBIN ADULT 0.3 MG/DL (0.2-1.0)
[2017-03-25 21:34] VITALS: BP 108/59; PULSE 85; RESP 16; O2SAT 96
[2017-03-26 00:30] VITALS: BP 98/56; PULSE 71; RESP 16; O2SAT 96
[2017-03-26 00:55] LABS: BACTERIA, URINE RARE /hpf; BLOOD, URINE TRACE (NEG); COMMENT (UR) CULT NOT INDICATED; CULTURE IF INDICATED CULT NOT INDICATED; GLUCOSE,URINE NEG (NEG); HYALINE CAST, URINE 1 /lpf (RARE); KETONE, URINE NEG (NEG); MUCUS URINE FEW /lpf (OCC); NITRITE,URINE NEG (NEG); URINE COLOR YELLOW (YELLW/STRAW)
[2017-03-26 01:04] LABS: AMPHETAMINE, URINE NEG (NEG); BARBITURATES, URINE NEG (NEG); COCAINE, URINE NEG (NEG)
[2017-03-26] MEDS: LORazepam 2 MG/ML VIAL IV PUSH PRN ×2 (03:19→07:35)
[2017-03-26 03:30] VITALS: BP 116/80; PULSE 71; RESP 16; O2SAT 96
[2017-03-26 05:57] VITALS: BP 123/81; PULSE 72; RESP 16; O2SAT 97
[2017-03-26 07:20] VITALS: BP 120/86; PULSE 86; RESP 17; TEMP 97.8; O2SAT 98
[2017-03-26 11:00] VITALS: BP 118/77; PULSE 78; RESP 17; TEMP 98.1; O2SAT 99
[2017-03-26 15:47] VITALS: BP 143/77; TEMP 98
== END 2017-03-26 15:36 | disposition short-term general hospital (02) ==
LOC: NEPC 17:55 → NEPJ 03-26 15:36
DX: F10.14 Alcohol abuse with alcohol-induced mood disorder (principal); I10 Essential (primary) hypertension; Y90.8 Blood alcohol level of 240 mg/100 ml or more
CPT/HCPCS: 80053; 80307; 81001; 85025; 96361; 96374; 96375; 99284; J2060; J2405; J7030

== ENCOUNTER 2017-04-13 20:39 | Emergency (ER) | payer SELFPAY ==
[~2017-04-13] VITALS: Ht 182.9 cm; Wt 77.3 kg
[2017-04-13 20:43] VITALS: BP 131/79; PULSE 90; RESP 18; TEMP 97.3; O2SAT 93; O2SAT 96
[2017-04-13] MEDS ORDERED: SODIUM CHLOR 0.9% 1000 ML INJ 1,000 ML IV SCH (21:34)
[2017-04-13] MEDS ORDERED: SODIUM CHLORIDE 0.9% FLUSH 5 ML FLUSH IV FLUSH PRN ×2 (21:45)
[2017-04-13] MEDS ORDERED: THIAMINE INJ 100 MG in SODIUM CHLORIDE 0.9% INJ 100 ML IV ONE (21:45)
[2017-04-13 21:47] LABS: BLOOD, URINE TRACE (NEG); GLUCOSE,URINE NEG (NEG); KETONE, URINE NEG (NEG); NITRITE,URINE NEG (NEG); PH, URINE 5.5 (5.0-8.5)
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
[2017-04-13 21:53] LABS: RBC, URINE 0-2 /hpf (0-3); SQUAMOUS EPITHELIAL CELL URINE 0-5 /hpf (0-5); URINE COLOR STRAW (YELLW/STRAW); WBC, URINE 0-2 /hpf (0-5)
[2017-04-13 21:54] LABS: COMMENT (UR) CULT NOT INDICATED; CULTURE IF INDICATED CULT NOT INDICATED
[2017-04-13 22:11] LABS: AUTOMATED NEUTROPHIL # 3.4 TH/MM3 (1.8-7.7); BASOPHIL # 0.1 TH/MM3 (0-0.2); BASOPHIL % 0.9 % (0.0-2.0); EOSINOPHIL # 0.2 TH/MM3 (0-0.4); EOSINOPHIL % 3.3 % (0.0-4.0); HEMATOCRIT 35.6 % (39.0-51.0); HEMO FLAGS DIFF FINAL; LYMPH % 27.8 % (9.0-44.0); LYMPHOCYTE # 1.6 TH/MM3 (1.0-4.8); MEAN CELL VOLUME 91.7 FL (80.0-100.0); MEAN CORPUSCULAR HEMOGLOBIN 31.1 PG (27.0-34.0); MEAN CORPUSCULAR HGB CONC 33.9 % (32.0-36.0); MONO % 10.1 % (0.0-8.0); NEUT % 57.9 % (16.0-70.0); PLATELET COUNT 225 TH/MM3 (150-450); RED BLOOD COUNT 3.89 MIL/MM3 (4.50-5.90); RED CELL DISTRIBUTION WIDTH 15.9 % (11.6-17.2); WHITE BLOOD COUNT 5.9 TH/MM3 (4.0-11.0)
[2017-04-13 22:17] VITALS: PULSE 85; O2SAT 96
[2017-04-13 22:18] LABS: CHLORIDE 109 MEQ/L (98-107); POTASSIUM 3.1 MEQ/L (3.5-5.1); SODIUM (NA) 144 MEQ/L (136-145)
[2017-04-13 22:22] LABS: ANION GAP 11 MEQ/L (5-15); BICARBONATE 23.7 MEQ/L (21.0-32.0); BLOOD UREA NITROGEN 8 MG/DL (7-18)
[2017-04-13 22:25] LABS: ALT (GPT) 74 U/L (12-78); AST (GOT) 106 U/L (15-37); GLOMERULAR FILTRATION RATE 102 ML/MIN (>89)
[2017-04-13 22:26] LABS: TOTAL BILIRUBIN ADULT 0.2 MG/DL (0.2-1.0)
[2017-04-13 22:27] LABS: ALKALINE PHOSPHATASE 135 U/L (45-117)
[2017-04-13] MEDS ORDERED: POTASSIUM CHLORIDE 20 MEQ CONTROLLED RELEASE TAB PO ONE (23:15)
[2017-04-14 01:56] VITALS: BP 122/70; PULSE 90; RESP 16; O2SAT 99
--- NOTE | 2017-04-14 12:15 | EKG ---
Date Performed: 04/13/2017 Time Performed: 21:45:29 PTAGE: 56 years EKG: Sinus rhythm NORMAL ECG WARNING: DATA QUALITY MAY AFFECT INTERPRETATION PREVIOUS TRACING : 07/28/2016 15.27 Compared to prior tracing no significant change DOCTOR: Cesar Cisneros Interpretating Date/Time 04/14/2017 12:12:28
== END 2017-04-14 05:10 | disposition home or self-care (01) ==
LOC: PHED 20:39
DX: F10.129 Alcohol abuse with intoxication, unspecified (principal); Z76.5 Malingerer [conscious simulation]; I10 Essential (primary) hypertension; I25.2 Old myocardial infarction
CPT/HCPCS: 80053; 80307; 81001; 84484; 85025; 93005; 96365; 99284; J3411; J7030

== ENCOUNTER 2017-04-24 03:40 | Observation (INO) | payer SELFPAY ==
[~2017-04-24] VITALS: Ht 182.9 cm; Wt 80.0 kg
[2017-04-24] VITALS (7 sets, daily range): BP systolic 104–139; BP diastolic 69–79; PULSE 65–97; RESP 16–18; TEMP 98.1–99.2; O2SAT 96–100
[2017-04-24] MEDS ORDERED: SODIUM CHLORIDE 0.9% FLUSH 10 ML FLUSH IVF PRN (04:00)
[2017-04-24] MEDS ORDERED: THIAMINE INJ 100 MG in SODIUM CHLORIDE 0.9% INJ 100 ML IV ONE (04:00)
[2017-04-24] MEDS ORDERED: ASPIRIN 81 MG CHEW TAB PO ONE (04:00)
[2017-04-24] MEDS ORDERED: NITROGLYCERIN 0.4 MG SL 25 TABS/BTL SL ONE (04:00)
--- NOTE | 2017-04-24 04:31 | PD ---
HPI Chief Complaint: Chest Pain Time Seen by Provider: 03:46 Travel History International Travel<30 days: No Contact w/Intl Traveler<30days: No Traveled to known affect area: No History of Present Illness HPI The patient is a 56 year old male who presents to the [facility] emergency department with a history of chest pain that he reports has been coming and going for the last few days, however 5 hours ago it became constant. He reports the pain is a dull sensation in his chest on the left side. He denies having any radiation of the pain. He reports having associated shortness of breath. He reports having diaphoresis. He denies having any nausea or vomiting. He denies having any worsening cough or congestion. He does have a chronic smoker's cough related to smoking 1-1/2-2 packs per day. The patient additionally reports that he drinks as much alcohol as he can get a hold of. He reports that he was told that he may have had a myocardial infarction in the past. He has difficulty providing any details as to how or why physician told him this. The patient reports that he has had a stress test done previously at this facility, however he is unsure when. I review of systems, the patient denies any recent fevers, neck pain, abdominal pain, vomiting, diarrhea, urinary symptoms, or neurologic symptoms. [facility] Past Medical History Narrative Medical The patient's past medical history is significant for alcohol abuse, tobacco abuse, anemia, depression with suicidal ideations in the past, history of a GI bleed, history of hypertension, history of hiatal hernia, acid reflux, kidney stones, history of alcohol-related seizures, history of peptic ulcer disease. Anemia: Yes Autoimmune Disease: No Depression: Yes (WITH SUICIDAL IDEATIONS in past) Cancer: No Cardiovascular Problems: Yes Diabetes: No Diminished Hearing: No Gastrointestinal Disorders: Yes (GI BLEED) Genitourinary: No Hiatal Hernia: Yes Hypertension: Yes Immune Disorder: No Implanted Vascular Access Dvce: No Kidney Stones: Yes Musculoskeletal: No Neurologic: Yes Psychiatric: No Reproductive: No Respiratory: No Immunizations Current: Yes Myocardial Infarction: Yes Seizures: Yes (ALCOHOL RELATED) Ulcer: Yes Past Surgical History Narrative Surgical The patient has a history of right inguinal hernia repair. Abdominal Surgery: Yes (RIGHT INGUINAL HERNIA: 1978) Other Surgery: Yes (HIATAL HERNIA 1978) Social History Alcohol Use: Yes (DAILY, "ALCOHOLIC", as much as he can get a hold of) Tobacco Use: Yes (1.5 PPD) Substance Use: No (PAST USE OF CRACK, OPIATES, METHADONE) Allergies-Medications (Allergen,Severity, Reaction): Coded Allergies: No Known Allergies (Verified , 04/13/17) Reported Meds & Prescriptions Reported Meds & Active Scripts Active No Active Prescriptions or Reported Medications Review of Systems Except as stated in HPI: all other systems reviewed are Neg General / Constitutional: No: Fever Eyes: No: Visual changes HENT: No: Headaches Cardiovascular: Positive: Chest Pain or Discomfort, Dyspnea on exertion Respiratory: No: Shortness of Breath Gastrointestinal: No: Abdominal Pain Genitourinary: No: Dysuria Musculoskeletal: No: Pain Skin: No Rash Neurologic: No: Weakness, Focal Abnormalities, Change in Mentation, Slurred Speech, Sensory Disturbance Psychiatric: No: Depression Endocrine: No: Polydipsia Hematologic/Lymphatic: No: Easy Bruising Physical Exam Narrative General: The patient is a well-developed well-nourished male in no acute distress, disheveled appearing on examination. Head and Neck exam: Head is normocephalic atraumatic. Eyes: EOMI, pupils are equal round and reactive to light. Nose: Midline septum with pink mucous membranes Mouth: Dentition unremarkable. Moist mucus membranes. Posterior oropharynx is not erythematous. No tonsillar hypertrophy. Uvula midline. Airway patent. Neck: No palpable lymphadenopathy. No nuchal rigidity. No thyromegaly. Cardiovascular: Regular rate and rhythm without murmurs, gallops, or rubs. No pulse deficit to the extremities and simultaneous auscultation and palpation of his radial artery. Lungs: Clear to auscultation bilaterally. No wheezes, rhonchi, or rales. Abdomen: Soft, without tenderness to palpation in all 4 quadrants of the abdomen. No guarding, rebound, or rigidity. Normal bowel sounds are audible. No tenderness on palpation of McBurney's point. Negative Jones's sign. Extremities: No clubbing, cyanosis, or edema. 2+ pulses in all 4 extremities. No calf tenderness on palpation. Back: No costovertebral angle tenderness to palpation. Neurologic Exam: Grossly nonfocal. The patient is oriented to person, place, time, and situation. Skin Exam: No rash noted. Intact skin that is warm and dry. Data Data Last Documented VS Vital Signs Date Time Temp Pulse Resp B/P Pulse Ox O2 Delivery O2 Flow Rate FiO2 04/24/17 04:12 98.1 97 18 115/78 100 Room Air Orders Electrocardiogram (04/24/17 03:54) Ckmb (Isoenzyme) Profile (04/24/17 03:54) Complete Blood Count With Diff (04/24/17 03:54) Comprehensive Metabolic Panel (04/24/17 03:54) Magnesium (Mg) (04/24/17 03:54) Prothrombin Time / Inr (Pt) (04/24/17 03:54) Act Partial Throm Time (Ptt) (04/24/17 03:54) Troponin I (04/24/17 03:54) Lipase (04/24/17 03:54) Chest, Single Ap (04/24/17 03:54) Ecg Monitoring (04/24/17 03:54) Bilateral Bp Monitoring (04/24/17 03:54) Iv Access Insert/Monitor (04/24/17 03:54) Oximetry (04/24/17 03:54) Oxygen Administration (04/24/17 03:54) Aspirin Chew (Aspirin Chew) (04/24/17 04:00) Sodium Chloride 0.9% Flush (Ns Flush) (04/24/17 04:00) Nitroglycerin Sl (Nitrostat Sl) (04/24/17 04:00) Sodium Chlor 0.9% 1000 Ml Inj (Ns 1000 M (04/24/17 04:00) Thiamine Inj (Thiamine Inj) (04/24/17 04:00) CKMB (04/24/17 04:10) CKMB% (04/24/17 04:10) Sodium Chlor 0.9% 1000 Ml Inj (Ns 1000 M (04/24/17 05:30) Admit Order (Ed Use Only) (04/24/17 05:31) Labs Laboratory Tests Test 04/24/17 04:10 White Blood Count 6.6 TH/MM3 Red Blood Count 3.80 MIL/MM3 Hemoglobin 11.9 GM/DL Hematocrit 35.1 % Mean Corpuscular Volume 92.3 FL Mean Corpuscular Hemoglobin 31.3 PG Mean Corpuscular Hemoglobin 34.0 % Concent Red Cell Distribution Width 17.0 % Platelet Count 241 TH/MM3 Mean Platelet Volume 7.1 FL Neutrophils (%) (Auto) 60.8 % Lymphocytes (%) (Auto) 24.9 % Monocytes (%) (Auto) 11.1 % Eosinophils (%) (Auto) 2.5 % Basophils (%) (Auto) 0.7 % Neutrophils # (Auto) 4.0 TH/MM3 Lymphocytes # (Auto) 1.6 TH/MM3 Monocytes # (Auto) 0.7 TH/MM3 Eosinophils # (Auto) 0.2 TH/MM3 Basophils # (Auto) 0.0 TH/MM3 CBC Comment DIFF FINAL Differential Comment Prothrombin Time 10.0 SEC Prothromb Time International 0.9 RATIO Ratio Activated Partial 31.6 SEC Thromboplast Time Sodium Level 141 MEQ/L Potassium Level 3.5 MEQ/L Chloride Level 107 MEQ/L Carbon Dioxide Level 24.8 MEQ/L Anion Gap 9 MEQ/L Blood Urea Nitrogen 5 MG/DL Creatinine 0.76 MG/DL Estimat Glomerular Filtration 107 ML/MIN Rate Random Glucose 84 MG/DL Calcium Level 8.0 MG/DL Magnesium Level 2.0 MG/DL Total Bilirubin 0.3 MG/DL Aspartate Amino Transf 117 U/L (AST/SGOT) Alanine Aminotransferase 64 U/L (ALT/SGPT) Alkaline Phosphatase 140 U/L Total Creatine Kinase 1297 U/L Creatine Kinase MB 16.3 NG/ML Creatine Kinase MB % 1.3 % Troponin I LESS THAN 0.02 NG/ML Total Protein 7.2 GM/DL Albumin 3.4 GM/DL Lipase 373 U/L MDM Medical Decision Making Medical Screen Exam Complete: Yes Emergency Medical Condition: Yes Medical Record Reviewed: Yes Interpretation(s) Last Impressions Chest X-Ray 04/24/17 0354 Signed Impressions: Service Date/Time: Monday, April 24, 2017 04:06 - CONCLUSION: The lungs are clear. Kevyn Garg MD Differential Diagnosis Acute coronary syndrome, versus acid reflux, versus alcohol related gastritis Narrative Course During the course of the patients emergency department visit, the patients history, examination, and differential diagnosis were reviewed with the patient. The patient had IV access obtained and blood work sent for analysis. The patient was placed on a district recruiter with oximetry and blood pressure monitoring. An ECG was done on arrival. The patient's ECG reveals a sinus rhythm heart rate of 68, no acute ST segment elevation or depression. A review of the patient's electronic medical record reveals no prior evidence of any stress testing being done at this facility. The patient was brought in by ambulance services. The patient was given 162 mg of aspirin prior to arrival and one sublingual nitroglycerin. The patient was initially provided aspirin 162 mg by mouth 1, nitroglycerin sublingual times one. The patient was given normal saline at 125 mL per hour, thiamine 100 mg IV. The patients laboratory studies were reviewed and remarkable for a white count of 6.6, hemoglobin 11.9, platelets 241 with 11.1 monocytes, CMP is remarkable for BUN of 5, calcium 8.0, AST 117, alkaline phosphatase 140, CPK 1297, MB percent 1.3, troponin I less than 0.02, lipase 373, PT 10, PTT 31.6 Radiology studies were reviewed and remarkable for a chest x-ray that shows no acute abnormality. Given the patient's elevated CPK but appears to be related to skeletal muscle the patient was given an additional normal saline 1 L IV fluid bolus. As the patient has not had any stress testing done at this facility in the past and unfortunately is a poor historian regarding his cardiac history, the patient will be admitted to the chest pain center for rule out serial cardiac enzyme protocol. Diagnosis Primary Impression: Chest pain, rule out acute myocardial infarction Admitting Information Admitting Physician Requests: Observation Scripts No Active Prescriptions or Reported Meds Nathalia Casas MD Apr 24, 2017 04:31
[2017-04-24 04:32] LABS: BASOPHIL % 0.7 % (0.0-2.0); EOSINOPHIL # 0.2 TH/MM3 (0-0.4); EOSINOPHIL % 2.5 % (0.0-4.0); HEMATOCRIT 35.1 % (39.0-51.0); HEMO FLAGS DIFF FINAL; LYMPH % 24.9 % (9.0-44.0); LYMPHOCYTE # 1.6 TH/MM3 (1.0-4.8); MEAN CELL VOLUME 92.3 FL (80.0-100.0); MEAN CORPUSCULAR HEMOGLOBIN 31.3 PG (27.0-34.0); MONO % 11.1 % (0.0-8.0); NEUT % 60.8 % (16.0-70.0); PLATELET COUNT 241 TH/MM3 (150-450); WHITE BLOOD COUNT 6.6 TH/MM3 (4.0-11.0)
[2017-04-24] MEDS: SODIUM CHLOR 0.9% 1000 ML INJ 1,000 ML IV SCH ×2 (04:47→12:00)
[2017-04-24 05:00] LABS: ANION GAP 9 MEQ/L (5-15); AST (GOT) 117 U/L (15-37); BICARBONATE 24.8 MEQ/L (21.0-32.0); BLOOD UREA NITROGEN 5 MG/DL (7-18); CHLORIDE 107 MEQ/L (98-107); GLOMERULAR FILTRATION RATE 107 ML/MIN (>89); POTASSIUM 3.5 MEQ/L (3.5-5.1); SODIUM (NA) 141 MEQ/L (136-145)
[2017-04-24 05:01] LABS: ALT (GPT) 64 U/L (12-78)
[2017-04-24 05:05] LABS: APTT (PATIENT) 31.6 SEC (24.3-30.1); INTERNATIONAL NORMALIZED RATIO 0.9 RATIO
--- NOTE | 2017-04-24 05:08 | RADRPT ---
EXAM DATE/TIME: 04/24/2017 04:06 [facility] COMPARISON: CHEST SINGLE AP, July 28, 2016, 15:37. INDICATIONS : Chest pain. MEDICAL HISTORY : None. SURGICAL HISTORY : None. ENCOUNTER: Initial ACUITY: 1 day PAIN SCORE: 0/10 LOCATION: Bilateral chest FINDINGS: A single view of the chest demonstrates the lungs to be symmetrically aerated without evidence of mas s, infiltrate or effusion. The cardiomediastinal contours are unremarkable. Osseous structures are intact. CONCLUSION: The lungs are clear. Kevyn Garg MD on April 24, 2017 at 5:07 Board Certified Radiologist. This report was verified electronically.
[2017-04-24 05:15] LABS: ALKALINE PHOSPHATASE 140 U/L (45-117); CREATINE KINASE 1297 U/L (39-308); TOTAL BILIRUBIN ADULT 0.3 MG/DL (0.2-1.0)
[2017-04-24 05:27] LABS: CKMB 16.3 NG/ML (0.5-3.6)
[2017-04-24] MEDS ORDERED: SODIUM CHLOR 0.9% 1000 ML INJ 1,000 ML IV ONE (05:30)
[2017-04-24] MEDS ORDERED: ACETAMINOPHEN 500 MG CPLT PO PRN (06:15)
[2017-04-24] MEDS ORDERED: SODIUM CHLORIDE 0.9% FLUSH 10 ML FLUSH IV FLUSH PRN (06:15)
[2017-04-24] MEDS ORDERED: ONDANSETRON HCL 4 MG/2 ML VIAL IV PRN (06:15)
[2017-04-24] MEDS ORDERED: SODIUM CHLOR 0.9% 1000 ML INJ 1,000 ML IV SCH (08:21)
[2017-04-24 08:25] LABS: CREATINE KINASE 1110 U/L (39-308)
[2017-04-24 08:39] LABS: CKMB 13.5 NG/ML (0.5-3.6)
[2017-04-24] MEDS ORDERED: PANTOPRAZOLE SOD 40 MG DELAYED RELEASE TAB PO SCH (09:00)
--- NOTE | 2017-04-24 09:56 | HHI.HP ---
HPI Primary Care Physician No Primary Care Physician Chief Complaint Chest pain History of Present Illness This is a 56-year-old male that presents to ED via [facility] complaining of about a week of discomfort in his chest. He states that is there all day. When asked how often as been happening he states is there all day when he is awake for week. Cannot describe what it feels like, worse located, or associated symptoms. He is actually quite upset that we woke him up stating it is too early in the morning. 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 His questions had be specifically asked multiple times to illicit a review of systems reviewed HEENT: Patient denies headache, sore throat, difficulty swallowing. Cardiovascular: Has the chest discomfort as mentioned above. Denies sensation of heart beating rapidly or irregularly. No syncope. Respiratory: Denies shortness of breath or inspirational chest discomfort. Denies coughing wheezing or hemoptysis. GI: Patient denies nausea, vomiting, diarrhea, abdominal pain, bloody stools. Musculoskeletal: Patient denies joint pain or edema. Denies calf pain or edema. Neurovascular: Patient denies numbness, tingling, weakness in extremities. Denies headache. Endocrine: Denies polyuria and polydipsia. Hematologic: Denies easy bruising. Skin: Denies rash or itching. Past Family Social History Allergies: Coded Allergies: No Known Allergies (Verified , 04/13/17) Past Medical History Will not properly answered he has a past medical problems. 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 Past Surgical History He did not answer this question. Reported Medications Reported Meds & Active Scripts Active No Active Prescriptions or Reported Medications Active Ordered Medications Current Medications Medications (Trade) Dose Ordered Sig/Heaven Route Start Time Stop Time Status Last Admin Sodium Chloride 2 ml 2 ml UNSCH PRN IVF 04/24/17 04:00 (NS 1000 ml Inj) 1,000 ml @ 125 mls/hr Q8H IV 04/24/17 04:00 04/24/17 04:47 (NS Flush) 2 ml UNSCH PRN IV FLUSH 04/24/17 06:15 (Tylenol) 500 mg Q4H PRN PO 04/24/17 06:15 (Zofran Inj) 4 mg Q6H PRN IV 04/24/17 06:15 Pantoprazole Sodium 40 mg 40 mg DAILY PO 04/24/17 09:00 (NS 1000 ml Inj) 1,000 ml @ 125 mls/hr Q8H IV 04/24/17 08:21 04/24/17 16:20 04/24/17 09:11 Family History Patient would not answer question related to his family history. Social History Patient is smoking one half packs of cigarettes daily but when asked for how long, states "I don't know." Admits to drinking at least 416 ounce beers per day. Admits to smoking marijuana and cocaine but will not state when the last time was. Physical Exam Vital Signs Vital Signs Date Time Temp Pulse Resp B/P Pulse Ox O2 Delivery O2 Flow Rate FiO2 04/24/17 07:57 98.6 69 16 104/69 96 04/24/17 05:59 88 18 115/78 99 Room Air 04/24/17 04:12 98.1 97 18 115/78 100 Room Air 04/24/17 04:12 97 Room Air 04/24/17 04:12 97 Room Air 04/24/17 04:12 87 18 100 04/24/17 03:59 98.1 65 18 114/79 100 Physical Exam GENERAL: This is a well-nourished, well-developed patient, in no apparent distress. Patient speaks in clear complete sentences. Patient is pleasant. HEENT: Head is atraumatic and normocephalic. Neck is supple without lymphadenopathy and trachea is midline. No JVD or carotid bruits. CARDIOVASCULAR: Regular rate and rhythm without murmurs, gallops, or rubs. RESPIRATORY: Clear to auscultation. Breath sounds equal bilaterally. No wheezes , rales, or rhonchi. Chest wall is tender. No use of accessory muscles. GASTROINTESTINAL: Abdomen is nontender, nondistended. Abdomen soft. No obvious pulsatile mass or bruit. No CVA tenderness. Strong femoral pulses bilaterally. Normal bowel sounds in all quadrants. MUSCULOSKELETAL: Patient is moving upper and lower extremities freely. No calf tenderness or edema, no Homans sign. Strong pulses in upper and lower extremities. NEUROLOGICAL: Patient is alert and oriented. Cranial nerves 2-12 are grossly intact. No focal deficits and speech is clear. SKIN: No rash and turgor is normal. Laboratory Laboratory Tests Test 04/24/17 04/24/17 04:10 07:10 White Blood Count 6.6 Red Blood Count 3.80 Hemoglobin 11.9 Hematocrit 35.1 Mean Corpuscular Volume 92.3 Mean Corpuscular Hemoglobin 31.3 Mean Corpuscular Hemoglobin 34.0 Concent Red Cell Distribution Width 17.0 Platelet Count 241 Mean Platelet Volume 7.1 Neutrophils (%) (Auto) 60.8 Lymphocytes (%) (Auto) 24.9 Monocytes (%) (Auto) 11.1 Eosinophils (%) (Auto) 2.5 Basophils (%) (Auto) 0.7 Neutrophils # (Auto) 4.0 Lymphocytes # (Auto) 1.6 Monocytes # (Auto) 0.7 Eosinophils # (Auto) 0.2 Basophils # (Auto) 0.0 CBC Comment DIFF FINAL Differential Comment Prothrombin Time 10.0 Prothromb Time International 0.9 Ratio Activated Partial 31.6 Thromboplast Time Sodium Level 141 Potassium Level 3.5 Chloride Level 107 Carbon Dioxide Level 24.8 Anion Gap 9 Blood Urea Nitrogen 5 Creatinine 0.76 Estimat Glomerular Filtration 107 Rate Random Glucose 84 Calcium Level 8.0 Magnesium Level 2.0 Total Bilirubin 0.3 Aspartate Amino Transf 117 (AST/SGOT) Alanine Aminotransferase 64 (ALT/SGPT) Alkaline Phosphatase 140 Total Creatine Kinase 1297 1110 Creatine Kinase MB 16.3 13.5 Creatine Kinase MB % 1.3 1.2 Troponin I LESS THAN 0.02 LESS THAN 0.02 Total Protein 7.2 Albumin 3.4 Lipase 373 Result Diagram: 04/24/17 0410 04/24/17 0410 Imaging Last 48 hours Impressions Chest X-Ray 04/24/17 0354 Signed Impressions: Service Date/Time: Monday, April 24, 2017 04:06 - CONCLUSION: The lungs are clear. Kevyn Garg MD Course First 2 EKGs have sinus rhythm without significant ST segment depressions or elevations. Assessment and Plan Assessment and Plan * Chest pain: Patient has had first and second set of cardiac enzymes and EKGs for ruling out purposes. He has been seen by Dr. Mitchel Garcia of cardiology in the chest pain center. He has elevated CPKs however CK-MB percent is normal. He was given a liter of IV fluids in the ED and we were repeating more IV fluids at this time. Renal function is normal. He will need to follow-up with local physician. He will undergo a Lexiscan this time and be discharged if the stress test is nonischemic. * Elevated CPK: Patient is given IV hydration. * Tobacco abuse: Patient has been counseled on importance of smoking cessation. * Alcohol abuse: Patient has been advised to follow-up with AA and he should start to decrease his alcohol intake. * Substance abuse: Patient has been counseled on the importance of no longer using illicit drugs. Patient is stable at this time. He is agreeable to this plan. Adal Grier Apr 24, 2017 09:56
[2017-04-24] MEDS ORDERED: REGADENOSON INJ 0.4 MG/5 ML SYR ONE (10:32)
--- NOTE | 2017-04-24 12:28 | RADRPT ---
EXAM DATE/TIME: 04/24/2017 09:57 [facility] COMPARISON: No previous studies available for comparison. INDICATIONS : Left sided chest pain with dyspnea and diaphoresis. Angina. DOSE: 26.2 mCi Tc99m Myoview at stress. 8.1 mCi Tc99m Myoview at rest. 0.4 mg Lexiscan STRESS SYMPTOMS: Shortness of breath. EJECTION FRACTION: 63% MEDICAL HISTORY : Hypertension. SURGICAL HISTORY : Hernia repair. ENCOUNTER: Initial ACUITY: 1 day PAIN SCALE: 6/10 LOCATION: Left chest TECHNIQUE: The patient underwent pharmacologic stress with infusion of prescribed dose. Continuous ECG tracing was monitored during stress. Gated SPECT imaging was performed after stress and conventional SPECT i maging was performed at rest. The examination was performed on a SPECT/CT scanner, both attenuation and non-corrected datasets were reviewed. FINDINGS: DISTRIBUTION: The maximum perfused segment at stress is in the lateral wall. PERFUSION STUDY: The pattern of perfusion at stress is within normal limits. GATED STUDY: There is intact wall motion and thickening without hypokinetic or dyskinetic segments. CONCLUSION: 1. No significant reversible perfusion defect. 2. No focal wall motion abnormality with EF of 63%. RISK CATEGORY: 1-low risk (<1% annual mortality rate) Quirino Leong MD on April 24, 2017 at 12:23 Board Certified Radiologist. This report was verified electronically.
--- NOTE | 2017-04-24 12:53 | HHI.DCPOC ---
Discharge Care Plan Diagnosis: (1) Chest pain (2) Tobacco abuse (3) Alcohol abuse (4) Substance abuse (5) Elevated CPK Goals to Promote Your Health * To prevent worsening of your condition and complications * To maintain your health at the optimal level Directions to Meet Your Goals Take your medications as prescribed Follow your dietary instruction Follow activity as directed Keep your appointments as scheduled Take your immunizations and boosters as scheduled If your symptoms worsen call your PCP, if no PCP go to Urgent Care Center or Emergency Room Smoking is Dangerous to Your Health. Avoid second hand smoke Call the 24-hour hour crisis hotline for domestic abuse at Adal Grier Apr 24, 2017 12:53
--- NOTE | 2017-04-24 16:14 | EKG ---
Date Performed: 04/24/2017 Time Performed: 03:47:05 PTAGE: 56 years EKG: Sinus rhythm NORMAL ECG NO PREVIOUS TRACING DOCTOR: Mitchel Garcia Interpretating Date/Time 04/24/2017 16:14:00
--- NOTE | 2017-04-24 16:16 | TR ---
Date Performed: 04/24/2017 Time Performed: 10:43:10 DOCTOR: Mitchel Garcia DRUG LIST: CLINICAL HISTORY: REASON FOR TEST: Angina REASON FOR ENDING: OBSERVATION: CONCLUSION: Lexiscan stress test was performed under standard four minute protocol. Radionuclid e was injected one minute prior to ending the test. No electrocardiographic abormalities were present to suggest ischemia. Nuclear imaging and interpretation are pending. COMMENTS:
--- NOTE | 2017-04-24 16:16 | EKG ---
Date Performed: 04/24/2017 Time Performed: 07:19:07 PTAGE: 56 years EKG: Sinus rhythm MODERATE INTRAVENTRICULAR CONDUCTION DELAY BORDERLINE ECG PREVIOUS TRACING : 04/13/2017 21.45 Since previous tracing, no significant change noted DOCTOR: Mitchel Garcia Interpretating Date/Time 04/24/2017 16:15:37
== END 2017-04-24 14:50 | disposition home or self-care (01) ==
LOC: NEPE 03:40 → NEDA 05:32 → NEPHCDU 06:40
PROVIDERS: ADMIT Internal Medicine Interventional Cardiology; ATTEND Internal Medicine Interventional Cardiology
DX: R07.89 Other chest pain (principal); R74.8 Abnormal levels of other serum enzymes; R61 Generalized hyperhidrosis; R06.00 Dyspnea, unspecified; R06.02 Shortness of breath; R05 Cough; I10 Essential (primary) hypertension; I20.9 Angina pectoris, unspecified; I25.2 Old myocardial infarction; F32.9 Major depressive disorder, single episode, unspecified; K21.9 Gastro-esophageal reflux disease without esophagitis; F14.90 Cocaine use, unspecified, uncomplicated; F12.90 Cannabis use, unspecified, uncomplicated; F10.10 Alcohol abuse, uncomplicated; F17.210 Nicotine dependence, cigarettes, uncomplicated
CPT/HCPCS: 71010; 78452; 80053; 82550; 82552; 83690; 83735; 84484; 85025; 85610; 85730; 93005; 93017; 96374; 99285; A9502; G0378; J2785; J3411; J7030

== ENCOUNTER 2017-05-17 15:34 | Emergency (ER) | payer SELFPAY ==
[~2017-05-17] VITALS: Ht 180.3 cm; Wt 83.0 kg
[2017-05-17 16:16] VITALS: BP 119/84; PULSE 88; RESP 20; TEMP 98.3; O2SAT 96
--- NOTE | 2017-05-17 17:08 | PD ---
HPI Chief Complaint: Chest Pain Time Seen by Provider: 17:05 Travel History International Travel<30 days: No Contact w/Intl Traveler<30days: No Traveled to known affect area: No History of Present Illness HPI 56-year-old male is well-known to the emergency department for alcohol abuse presents to the emergency department today via EMS for evaluation of chest pain. Patient also states that he had a 4 pack of beer today. Patient states he drinks everyday all day. He also admits tobacco use. Patient states he has midsternal chest pain. Patient is sleeping when I approach him. He then asked for food. Patient denies any other medical complaints at this time. Patient had stress test done on April 24, 2017 which showed no significant reversible perfusion deficit, risk category was low. PFSH Past Medical History Anemia: Yes Autoimmune Disease: No Depression: Yes (WITH SUICIDAL IDEATIONS in past) Cancer: No Cardiovascular Problems: Yes Diabetes: No Diminished Hearing: No Gastrointestinal Disorders: Yes (GI BLEED) Genitourinary: No Hiatal Hernia: Yes Hypertension: Yes Immune Disorder: No Implanted Vascular Access Dvce: No Kidney Stones: Yes Musculoskeletal: No Neurologic: Yes Psychiatric: No Reproductive: No Respiratory: No Immunizations Current: Yes Myocardial Infarction: Yes Seizures: Yes (ALCOHOL RELATED) Ulcer: Yes Past Surgical History Abdominal Surgery: Yes (RIGHT INGUINAL HERNIA: 1978) Other Surgery: Yes (HIATAL HERNIA 1978) Social History Alcohol Use: Yes (DAILY, "ALCOHOLIC", as much as he can get a hold of) Tobacco Use: Yes (1.5 PPD) Substance Use: No (PAST USE OF CRACK, OPIATES, METHADONE) Allergies-Medications (Allergen,Severity, Reaction): Coded Allergies: No Known Allergies (Verified , 04/13/17) Reported Meds & Prescriptions Reported Meds & Active Scripts Active No Active Prescriptions or Reported Medications Review of Systems Except as stated in HPI: all other systems reviewed are Neg Physical Exam Narrative GENERAL: Unkempt male warm/dry, afebrile. SKIN: No rashes, ecchymoses. Cool and dry. HEAD: Normocephalic. Atraumatic EYES: No scleral icterus. No injection or drainage. NECK: Supple, trachea midline. No JVD or lymphadenopathy. CARDIOVASCULAR: Regular rate and rhythm without murmurs, gallops, or rubs. RESPIRATORY: Breath sounds equal bilaterally. No accessory muscle use. Lungs sounds are clear to auscultation. GASTROINTESTINAL: Abdomen soft, non-tender, nondistended. MUSCULOSKELETAL: No cyanosis, or edema. BACK: Nontender without obvious deformity. No CVA tenderness. Data Data Last Documented VS Vital Signs Date Time Temp Pulse Resp B/P Pulse Ox O2 Delivery O2 Flow Rate FiO2 05/17/17 16:16 98.3 88 20 119/84 96 Orders Electrocardiogram (05/17/17 ) Basic Metabolic Panel (Bmp) (05/17/17 17:04) Ckmb (Isoenzyme) Profile (05/17/17 17:04) Complete Blood Count With Diff (05/17/17 17:04) Magnesium (Mg) (05/17/17 17:04) Troponin I (05/17/17 17:04) Chest, Single Ap (05/17/17 17:04) Ecg Monitoring (05/17/17 17:04) Bilateral Bp Monitoring (05/17/17 17:04) Iv Access Insert/Monitor (05/17/17 17:04) Oximetry (05/17/17 17:04) Oxygen Administration (05/17/17 17:04) Sodium Chloride 0.9% Flush (Ns Flush) (05/17/17 17:15) Alcohol (Ethanol) (05/17/17 17:04) CKMB (05/17/17 17:15) CKMB% (05/17/17 17:15) Labs Laboratory Tests Test 05/17/17 17:15 White Blood Count 7.2 TH/MM3 Red Blood Count 3.56 MIL/MM3 Hemoglobin 11.2 GM/DL Hematocrit 33.1 % Mean Corpuscular Volume 92.9 FL Mean Corpuscular Hemoglobin 31.3 PG Mean Corpuscular Hemoglobin 33.7 % Concent Red Cell Distribution Width 16.9 % Platelet Count 405 TH/MM3 Mean Platelet Volume 7.1 FL Neutrophils (%) (Auto) 67.2 % Lymphocytes (%) (Auto) 20.6 % Monocytes (%) (Auto) 6.3 % Eosinophils (%) (Auto) 4.7 % Basophils (%) (Auto) 1.2 % Neutrophils # (Auto) 4.8 TH/MM3 Lymphocytes # (Auto) 1.5 TH/MM3 Monocytes # (Auto) 0.5 TH/MM3 Eosinophils # (Auto) 0.3 TH/MM3 Basophils # (Auto) 0.1 TH/MM3 CBC Comment DIFF FINAL Differential Comment Sodium Level 141 MEQ/L Potassium Level 4.1 MEQ/L Chloride Level 107 MEQ/L Carbon Dioxide Level 24.4 MEQ/L Anion Gap 10 MEQ/L Blood Urea Nitrogen 4 MG/DL Creatinine 0.67 MG/DL Estimat Glomerular Filtration 124 ML/MIN Rate Random Glucose 84 MG/DL Calcium Level 8.0 MG/DL Magnesium Level 1.8 MG/DL Total Creatine Kinase 320 U/L Troponin I LESS THAN 0.02 NG/ML Ethyl Alcohol Level 296 MG/DL [facility] Medical Decision Making Medical Screen Exam Complete: Yes Emergency Medical Condition: Yes Medical Record Reviewed: Yes Differential Diagnosis Alcohol Intoxication versus chest wall pain versus ACS Narrative Course 56-year-old male presents to the emergency department for evaluation of chest pain. Patient is also intoxicated. He had recent normal stress test done on Saturday, April 24, 2017. EKG shows sinus rhythm, heart rate 83, no acute ST changes. CBC, BMP, CK, troponin, magnesium, alcohol level, chest x-ray are ordered and pending. Before imaging or lab results were back, the patient left AMA. I was not aware the patient was leaving as he was in the ambulance hallway, but nurse notified me that he left AMA. Diagnosis Primary Impression: Left against medical advice Additional Impression: Chest pain Qualified Code: R07.9 - Chest pain, unspecified type Scripts No Active Prescriptions or Reported Meds Disposition: 07 AGAINST MEDICAL ADVICE Stephani Enriquez May 17, 2017 17:08
[2017-05-17] MEDS ORDERED: SODIUM CHLORIDE 0.9% FLUSH 10 ML FLUSH IVF PRN (17:15)
--- NOTE | 2017-05-17 17:42 | RADRPT ---
EXAM DATE/TIME: 05/17/2017 17:18 [facility] COMPARISON: CHEST SINGLE AP, April 24, 2017, 4:06. INDICATIONS : Right sided chest pain. MEDICAL HISTORY : None. SURGICAL HISTORY : None. ENCOUNTER: Initial ACUITY: 2 days PAIN SCORE: 5/10 LOCATION: Right chest FINDINGS: A single view of the chest demonstrates the lungs to be symmetrically aerated without evidence of mas s, infiltrate or effusion. The cardiomediastinal contours are unremarkable. Osseous structures are intact. CONCLUSION: No acute disease. Nader Vergara MD on May 17, 2017 at 17:39 Board Certified Radiologist. This report was verified electronically.
[2017-05-17 17:55] LABS: AUTOMATED NEUTROPHIL # 4.8 TH/MM3 (1.8-7.7); BASOPHIL # 0.1 TH/MM3 (0-0.2); BASOPHIL % 1.2 % (0.0-2.0); EOSINOPHIL # 0.3 TH/MM3 (0-0.4); EOSINOPHIL % 4.7 % (0.0-4.0); HEMATOCRIT 33.1 % (39.0-51.0); HEMO FLAGS DIFF FINAL; LYMPH % 20.6 % (9.0-44.0); LYMPHOCYTE # 1.5 TH/MM3 (1.0-4.8); MEAN CELL VOLUME 92.9 FL (80.0-100.0); MEAN CORPUSCULAR HEMOGLOBIN 31.3 PG (27.0-34.0); MEAN CORPUSCULAR HGB CONC 33.7 % (32.0-36.0); MONO % 6.3 % (0.0-8.0); NEUT % 67.2 % (16.0-70.0); PLATELET COUNT 405 TH/MM3 (150-450); RED BLOOD COUNT 3.56 MIL/MM3 (4.50-5.90); RED CELL DISTRIBUTION WIDTH 16.9 % (11.6-17.2); WHITE BLOOD COUNT 7.2 TH/MM3 (4.0-11.0)
[2017-05-17 18:16] LABS: ANION GAP 10 MEQ/L (5-15); BICARBONATE 24.4 MEQ/L (21.0-32.0); BLOOD UREA NITROGEN 4 MG/DL (7-18); CHLORIDE 107 MEQ/L (98-107); GLOMERULAR FILTRATION RATE 124 ML/MIN (>89); MAGNESIUM 1.8 MG/DL (1.5-2.5); POTASSIUM 4.1 MEQ/L (3.5-5.1); SODIUM (NA) 141 MEQ/L (136-145)
[2017-05-17 18:18] LABS: CREATINE KINASE 320 U/L (39-308)
[2017-05-17 18:30] LABS: CKMB 6.5 NG/ML (0.5-3.6)
--- NOTE | 2017-05-18 12:06 | EKG ---
Date Performed: 05/17/2017 Time Performed: 16:46:47 PTAGE: 56 years EKG: Sinus rhythm Since previous tracing, no significant change noted NORMAL ECG PREVIOUS TRACING : 04/24/2017 07.19.07 DOCTOR: Rodrigo Zhou Interpretating Date/Time 05/18/2017 12:04:13
== END 2017-05-17 17:21 | disposition left against medical advice (07) ==
LOC: NEDAMB 17:00
DX: R07.9 Chest pain, unspecified (principal); I10 Essential (primary) hypertension; I25.2 Old myocardial infarction; Z87.442 Personal history of urinary calculi; F17.210 Nicotine dependence, cigarettes, uncomplicated
CPT/HCPCS: 71010; 80048; 80307; 82550; 82552; 83735; 84484; 85025; 93005; 99285

== ENCOUNTER 2017-05-22 04:23 | Emergency (ER) | payer SELFPAY ==
[~2017-05-22] VITALS: Ht 182.9 cm; Wt 75.0 kg
[2017-05-22 04:31] VITALS: BP 92/50; PULSE 81; RESP 18; TEMP 97.8; O2SAT 94
--- NOTE | 2017-05-22 06:55 | PD ---
HPI Chief Complaint: Alcohol/Drug Intoxication Time Seen by Provider: 06:40 Travel History International Travel<30 days: No Contact w/Intl Traveler<30days: No Traveled to known affect area: No History of Present Illness HPI Patient comes in by EMS for alcohol intoxication. Patient states that it "really didn't drink that much last night". Patient does admit to drinking daily. Patient's uncertain why he is here. Patient denies any medical complaints at this time. Patient denies any chest pain, shortness of breath, nausea, vomiting, abdominal pain, headaches, or fevers. PFSH Past Medical History Anemia: Yes Autoimmune Disease: No Depression: Yes (WITH SUICIDAL IDEATIONS in past) Cancer: No Cardiovascular Problems: Yes Diabetes: No Diminished Hearing: No Gastrointestinal Disorders: Yes (GI BLEED) Genitourinary: No Hiatal Hernia: Yes Hypertension: Yes Immune Disorder: No Implanted Vascular Access Dvce: No Kidney Stones: Yes Musculoskeletal: No Neurologic: Yes Psychiatric: No Reproductive: No Respiratory: No Immunizations Current: Yes Myocardial Infarction: Yes Seizures: Yes (ALCOHOL RELATED) Ulcer: Yes Past Surgical History Abdominal Surgery: Yes (RIGHT INGUINAL HERNIA: 1978) Other Surgery: Yes (HIATAL HERNIA 1978) Social History Alcohol Use: Yes (DAILY, "ALCOHOLIC", as much as he can get a hold of) Tobacco Use: Yes (1.5 PPD) Substance Use: No (PAST USE OF CRACK, OPIATES, METHADONE) Allergies-Medications (Allergen,Severity, Reaction): Coded Allergies: No Known Allergies (Verified , 05/22/17) Reported Meds & Prescriptions Reported Meds & Active Scripts Active No Active Prescriptions or Reported Medications Review of Systems ROS Limitations: Intoxication Except as stated in HPI: all other systems reviewed are Neg Physical Exam Exam Limitations: Intoxication Narrative GENERAL: Well-developed, well nourished, in no acute distress, and non-ill appearing. Alcohol noted on breath SKIN: Focused skin assessment warm and dry. HEAD: Atraumatic. Normocephalic. EYES: Pupils equal and round. EOMI. No scleral icterus. No injection or drainage. ENT: No nasal bleeding or discharge. Mucous membranes pink and moist. NECK: Trachea midline. Supple. No nuclear rigidity. CARDIOVASCULAR: Regular rate and rhythm. No murmur appreciated. RESPIRATORY: No accessory muscle use. No respiratory distress. Clear to auscultation. Breath sounds equal bilaterally. MUSCULOSKELETAL: No obvious deformities. No clubbing. No cyanosis. No edema. Full range of motion. NEUROLOGICAL: Awake and alert. No obvious cranial nerve deficits. Motor grossly within normal limits. Normal speech. PSYCHIATRIC: Appropriate mood and affect; insight and judgment normal. Data Data Last Documented VS Vital Signs Date Time Temp Pulse Resp B/P Pulse Ox O2 Delivery O2 Flow Rate FiO2 05/22/17 04:31 97.8 81 18 92/50 94 MDM Medical Decision Making Medical Screen Exam Complete: Yes Emergency Medical Condition: No Differential Diagnosis Alcohol intoxication, alcohol abuse, alcohol dependence, malingering, other Narrative Course Patient was seen and examined. Patient will be monitored in the emergency department until clinically sober and able to ambulate on their own or until a sober responsible adult comes to pick them up. At that time if patient complains of any medical complaints patient can be reevaluated at time. RN is aware of this. Pt ambulated without difficulty out of ED at discharge and was given bus passes. Diagnosis Primary Impression: Alcohol dependence with uncomplicated intoxication Referrals: [facility] Patient Instructions: Abuse of Alcohol (ED), General Instructions Additional Instructions: Follow-up with your primary care physician and/or Taras Alfred for alcohol detox. Slowdown drinking. Return to the emergency department if symptoms get worse. Scripts No Active Prescriptions or Reported Meds Disposition: 01 DISCHARGE HOME Condition: Stable Frank Arvizu May 22, 2017 06:55
== END 2017-05-22 07:35 | disposition home or self-care (01) ==
LOC: NEDAMB 04:23
DX: F10.220 Alcohol dependence with intoxication, uncomplicated (principal); D64.9 Anemia, unspecified; I10 Essential (primary) hypertension; I25.2 Old myocardial infarction; F32.9 Major depressive disorder, single episode, unspecified; F17.200 Nicotine dependence, unspecified, uncomplicated; Z87.442 Personal history of urinary calculi
CPT/HCPCS: 99283